=== PATIENT | male | born 1970 | race Caucasian/White ===

== ENCOUNTER 2016-08-10 19:36 | Emergency (ER) | payer OTHER ==
[~2016-08-10] VITALS: Ht 177.8 cm; Wt 98.3 kg
[~2016-08-10 19:36] MED LIST: ASPCH81 PO; LISI-729 PO
[2016-08-10 19:44] VITALS: BP 137/87; PULSE 105; TEMP 36.7; O2SAT 96; Ht 177.8 cm; Wt 98.3 kg
[2016-08-10] MEDS ORDERED: XYLOCAINE 1%/SOD BICARB 20 ML VIAL INFIL ONE (20:15)
[2016-08-10] MEDS ORDERED: DIPHTHERIA/TETANUS/PERTUSSIS 0.5 ML SYR/VIAL IM. ONE (20:15)
[2016-08-10] MEDS ORDERED: CEPH500C2 PO (20:24)
[2016-08-10] MEDS ORDERED: TRAMADOL HCL 50 MG HOME PACK PO ONE (20:30)
[2016-08-10] MEDS ORDERED: CEPHALEXIN 500MG HOME PACK 1 EA BTL PO ONE (20:30)
[2016-08-10] MEDS ORDERED: ATEN-173 PO (20:34)
--- NOTE | 2016-08-11 00:56 | EMERGENCY ROOM VISIT NOTE ---
ED Visit Note First contact with patient: 19:51 Chief Complaint: I cut my left hand. History of Present Illness: Mr. Connelly is a 45-year-old white male who ambulates into the ED complaining of a puncture wound to the left hand. Patient reports approximately 1.5 hours ago he was attempting to cut a rope with [place]. He reports while doing this he sustained the knife wound into the posterior aspect of the webspace between the thumb and index finger. He was seen at a local urgent care center and referred to the ED for a possible tendon injury. Currently patient reports he is having a burning sensation in the area of his laceration. He rates his discomfort 3/10. The pain was nonradiating. The pain worsens with palpation. He has not identified any alleviating factors related to the pain. He has not taken any medications for pain prior to arrival at the hospital. Associated with his pain he reports he is having a discomfort in the area of the flexor tendon of the ring finger over the mid metacarpal. He only describes this as a discomfort. He also rates this discomfort 3/10. He has not identified any aggravating or alleviating factors related to the pain. She denies any associated symptoms with either areas of discomfort including any numbness/tingling on the area of the wounds and throughout the fingers, weaknesses in all movements of the thumb and the ring finger. Additionally patient is right-hand dominant. Review of Systems: As noted above in history of present illness. Past Medical History: Hypertension. Current Medications: Lisinopril, atenolol. Allergies to Medications: Patient denies. Social History: Patient is currently employed; he feels safe in his home environment; he admits to tobacco and alcohol use. Tetanus Immunization Status: Patient reports greater than 10 years. Physical Examination: Vital Signs: Date Time Temp Pulse Resp B/P (MAP) Pulse Ox O2 Delivery O2 Flow Rate FiO2 08/10/16 19:44 36.7 105 20 137/87 96 Room Air GENERAL: 45-year-old male in mild to moderate distress due to pain, nontoxic- appearing, afebrile and hemodynamically stable. NEUROLOGICAL: Awake, alert and oriented to person, place and time. Answering questions appropriately and following commands. Good hand eye coordination. No focal motor or sensory deficits. SKIN: Warm, dry and pink. Right Hand: 1.8 cm full-thickness laceration/ puncture wound over the upper posterior hyper thenar eminence area. Minimal active bleeding. RIGHT HAND: Soft tissue injury as noted above under SKIN. No gross bony deformity. Mild tenderness over his puncture wound/laceration. No other hand tenderness noted. Full range of motion all movements of the thumb and all MCP, PIP and DIP joints against resistance. Throughout the hand the skin was warm and pink and capillary refill is brisk. He was able to distinguish light sensations through all dermatomes. . ED Course: Patient is assessed as noted above. Patient was given an Adacel booster IM. Wound Repair: Complexity: Basic: Verbal consent was obtained after the risks and benefits were explained. The skin was prepped with betadine and a sterile field set. Wound edges of the wound was anesthetized with 2.2 ml buffered 1% lidocaine. The wound was explored for foreign bodies and none found. Copious irrigation was performed using sterile saline. With direct pressure the bleeding subsided. Debridement was not performed. The wound edges were approximated using 5-0 Ethilon with 3 simple interrupted sutures. Hemostasis and excellent approximation was achieved. Antibacterial ointment and a sterile dressing applied. No complications and the patient tolerated the procedure well. Patient was educated about tonight's findings and instructed on his treatment plan; he verbalizes understanding and agreement with this plan. Clinical Impression: Laceration of the left thumb. Disposition: Patient discharged home in stable condition; prior to departure he was reassessed and subjectively he was pain and symptom-free. Plan: Comfort measures, wound care, and signs of infection were discussed with the patient. Patient was prescribed Keflex 500 mg 3 times a day for 7 days for antibiotic prophylaxis. Patient was encouraged to follow-up with PCP or return to the ED for signs of infection and/or suture removal in 10-12 days.
== END 2016-08-10 20:34 | disposition home or self-care (01) ==
LOC: C.EDB 19:37 → C.EDD 20:34
DX: S61.012A Laceration without foreign body of left thumb without damage to nail, initial encounter (principal); W26.0XXA Contact with knife, initial encounter; Y92.89 Other specified places as the place of occurrence of the external cause; I10 Essential (primary) hypertension; Z79.899 Other long term (current) drug therapy; F17.200 Nicotine dependence, unspecified, uncomplicated; Z23 Encounter for immunization

== ENCOUNTER 2022-12-31 18:52 | Inpatient (IN) ==
[2022-12-31] MEDS ORDERED: SODIUM CHLORIDE 0.9% 500 ML IV SCH (19:15)
[2022-12-31 19:25] LABS: Basophils # (auto) 0.06 K/uL (0.00-0.20); Eosinophils # (auto) 0.02 K/uL (0.00-0.50); Eosinophils % (auto) 0.3 %; Hematocrit (blood only) 47.3 % (42.0-52.0); Hemoglobin 16.4 g/dl (14.0-18.0); Immature Granulocytes # (auto) 0.01 K/uL (0.01-0.20); Immature Granulocytes % (auto) 0.2 %; Lymphocytes # (auto) 2.46 K/uL (1.20-3.40); Lymphocytes % (auto) 42.9 %; Mean Corpuscular Hemoglobin 33.3 pg (25.0-34.0); Mean Corpuscular Hgb Conc 34.7 g/dL (32.0-36.0); Mean Corpuscular Volume 96.1 fL (80.0-100.0); Mean Platelet Volume 9.4 fL (9.4-12.4); Monocytes # (auto) 0.45 K/uL (0.11-0.59); Monocytes % (auto) 7.8 %; Neutrophils # (auto) 2.74 K/uL (1.40-6.50); Neutrophils % (auto) 47.8 %; Platelet Count 127 K/uL (130-400); RDW Coefficient of Variation 12.5 % (11.5-14.5); RDW Standard Deviation 44.6 fL (36.4-46.3); Red Blood Count 4.92 M/uL (4.70-6.10); White Blood Count 5.74 K/ul (4.8-10.8)
[2022-12-31 19:38] LABS: Albumin Globulin Ratio 1.6 (0.9-2); Albumin Level 4.7 gm/dl (3.4-5.0); BUN Creatinine Ratio 10.8 (10-20); Bilirubin,Total 1.1 mg/dl (0.2-1.0); Calcium 9.1 mg/dl (8.6-10.3); Creatinine Clr Calc Pharmacy 97.9 ml/min; Est GFR (African American) 97.5 ml/min; Est GFR (Non-African American) 84.1 ml/min; Globulin 2.9 gm/dl (2.5-4.0); Potassium 3.5 mmol/L (3.5-5.1); Total Protein 7.6 gm/dl (6.0-8.3)
[2022-12-31 19:45] LABS: Troponin I High Sensitivity 10.1 pg/ml (0-20)
[2022-12-31 19:48] LABS: Partial Thromboplastin Ratio 0.9; Partial Thromboplastin Time 25.6 Seconds (21.0-31.0)
[2022-12-31 19:52] LABS: Thyroid Stimulating Hormone 0.581 uIu/ml (0.300-4.500)
[2022-12-31] MEDS ORDERED: SODIUM CHLORIDE 0.9% 500 ML IV ONE (20:00)
[2022-12-31] MEDS ORDERED: THIAMINE HCL 200 MG in SODIUM CHLORIDE 0.9% 50 ML IV STA (20:00)
--- NOTE | 2022-12-31 20:07 | Emergency Department Note ---
Impression & Plan Alcohol intoxication, Acute alteration in mental status ED Provider Note NAME: CORDELL RIOS AGE: 52 SEX: M : 1970 ARRIVES VIA: Ambulance INFORMANT: Patient, EMS personnel, the patient's significant other ED PROVIDER(S): Esteban Sutton DO CHIEF COMPLAINT: Altered mental status HPI: The patient is a 52-year-old male who presented to the emergency department for an evaluation of altered mental status. The patient arrived via ambulance. Additional history was obtained from the prehospital personnel as well as the patient's significant other. She states that he had been drinking alcohol throughout the day. She states that she took some time this afternoon to run some errands. When she came home she was unable to wake up her significant other. The patient was very listless and could not speak. He appeared to be aphasic. The patient arrived via ambulance. I did discuss the patient's presentation with the prehospital personnel. They were concerned that this could be strokelike symptoms but they were very concerned because they thought the patient may have drank significant amount of alcohol. The patient himself denies having any chest pain or difficulty breathing. He denies having any headache. ROS: See above HPI for pertinent positives & negatives. A total of 10 systems reviewed and were otherwise negative. PAST MEDICAL HISTORY: See Below PAST SURGICAL HISTORY: See Below FAMILY HISTORY: See Below SOCIAL HISTORY: See Below HOME MEDICATIONS: See Below ALLERGIES: See Below VITALS: See Below PHYSICAL EXAMINATION: GENERAL: Patient is awake alert in no acute distress patient is resting comfortably and showing no signs of anxiety EYES: The conjunctivae are clear. The pupils are round and reactive. EARS, NOSE, MOUTH AND THROAT: The nose is without any evidence of any deformity. NECK: The neck is nontender and supple. RESPIRATORY: Normal respiratory effort is noted there is no evidence of wheezing rhonchi or rales CARDIOVASCULAR: Regular rate and rhythm noted there no murmurs rubs or gallops normal S1 normal S2. GASTROINTESTINAL: The abdomen is soft. Abdomen is nontender. MUSCULOSKELETAL/EXTREMITIES: There is no evidence of gross deformity full range of motion is noted in the hips and shoulders. SKIN: There is no obvious evidence of any rash. There are no petechiae, pallor or cyanosis noted. NEUROLOGIC: The patient is awake and alert. His speech is somewhat slurred. Strength is symmetric. MEDICAL DECISION MAKING: The patient is a 52-year-old male who presented to the emergency department with strokelike symptoms. The patient was felt to been experiencing symptoms throughout the day but there was a point where he was not seen by his significant other and when she returned she found him unresponsive and this is why she called 911. The patient did admit to significant alcohol use prior to coming to the emergency department. I discussed patient's laboratory and radiographic studies with him and his significant other. The patient was found to have a very elevated alcohol level greater than 6 times the legal limit. For this reason I felt the patient required further inpatient management. It does not appear the patient is a candidate for thrombolytics given his elevated alcohol level. Plain CT showed no acute process. He may require further reevaluation to ensure that his mental status improves when his alcohol level also is improving. Triage Nursing notes reviewed. Prior medical records reviewed Vital Signs: reviewed and remarkable for elevated blood pressure. Differential diagnosis: Infection, hypoglycemia, electrolyte abnormalities, overdose, toxicologic, cardiac sources, intracerebral event, neurologic, trauma, as well as other pathologies. ER treatment provided: See below Diagnostics interpreted by me: ECG: EKG was obtained in the emergency department. My interpretation is normal sinus rhythm at 74 bpm. There is no ectopy. There is no acute ST segment abnormalities noted. This was compared to a tracing on November 26, 2022. No changes were noted. Cardiac Monitoring: An order was placed for continuous cardiac monitoring. The monitor shows a rate of 82 bpm with sinus rhythm. Laboratory studies: As stated above and show below. Imaging studies: See below. Radiographic imaging was reviewed by myself Consultation(s): I discussed this case with Dr. Black who is on-call for the [facility] hospitalist group Past Med/Surg History Medical History Hypomagnesemia Alcohol abuse Transient vision disturbance of right eye Hypertension Social History Smoking Status: Current some day smoker Preferred Language: Polish marital status: Current Living Situation: Spouse and Family current occupational status: employed Feels Safe at Home: Yes Allergies Allergies Allergy/AdvReac Type Severity Reaction Status Date / Time No Known Allergies Allergy Mild Verified 08/10/19 13:03 Home Meds Home Medications Medication Instructions Recorded Confirmed amlodipine 10 mg tablet 10 mg PO QAM 12/31/22 12/31/22 atenolol 25 mg tablet 25 mg PO QAM 12/31/22 12/31/22 escitalopram oxalate 10 mg tablet 10 mg PO QAM 12/31/22 12/31/22 hydroxyzine HCl 25 mg tablet 25 mg PO Q6 PRN Anxiety 12/31/22 12/31/22 Results & Data (ED) Vital Signs Vital Signs - 24 hr 12/31/22 19:00 12/31/22 19:01 12/31/22 19:07 Temperature 36.6 C Temperature Source Temporal Artery Scan Pulse Rate 83 77 81 Pulse Rate [Finger] Pulse Rate from SpO2 Sensor 78 Pulse Rhythm Regular Pulse Rhythm [Finger] Pulse Strength Normal Pulse Strength [Finger] Respiratory Rate 18 19 Respiratory Effort / Characteristics Non-Labored Spontaneous Respiratory Depth Normal Respiratory Pattern Blood Pressure 93/58 L Blood Pressure [Right Arm] Blood Pressure Mean 69 Blood Pressure Mean [Right Arm] Blood Pressure Position Sitting Blood Pressure Position [Right Arm] Pulse Oximetry 88 L 83 L Oxygen Delivery Method Room Air Oxygen Flow Rate Sepsis Recent Fever Within 48 Hours No Sepsis New/Unexplained Change in Mental Status N/A Sepsis Action Taken by Nursing No Action Required 12/31/22 19:07 12/31/22 19:07 12/31/22 19:10 Temperature 36.6 C Temperature Source Oral Pulse Rate 78 75 Pulse Rate [Finger] 76 Pulse Rate from SpO2 Sensor 76 Pulse Rhythm Regular Pulse Rhythm [Finger] Regular Pulse Strength Pulse Strength [Finger] Normal Respiratory Rate 20 20 21 Respiratory Effort / Characteristics Non-Labored Spontaneous Respiratory Depth Normal Respiratory Pattern Blood Pressure Blood Pressure [Right Arm] 93/58 L Blood Pressure Mean Blood Pressure Mean [Right Arm] 69 Blood Pressure Position Blood Pressure Position [Right Arm] Lying Pulse Oximetry 97 97 98 Oxygen Delivery Method Non-rebreather Non-rebreather Oxygen Flow Rate 6 6 Sepsis Recent Fever Within 48 Hours Sepsis New/Unexplained Change in Mental Status Sepsis Action Taken by Nursing 12/31/22 19:20 12/31/22 19:48 12/31/22 19:50 Temperature Temperature Source Pulse Rate 76 84 Pulse Rate [Finger] Pulse Rate from SpO2 Sensor 75 88 82 Pulse Rhythm Pulse Rhythm [Finger] Pulse Strength Pulse Strength [Finger] Respiratory Rate 21 20 Respiratory Effort / Characteristics Respiratory Depth Respiratory Pattern Blood Pressure Blood Pressure [Right Arm] Blood Pressure Mean Blood Pressure Mean [Right Arm] Blood Pressure Position Blood Pressure Position [Right Arm] Pulse Oximetry 97 95 97 Oxygen Delivery Method Oxygen Flow Rate Sepsis Recent Fever Within 48 Hours Sepsis New/Unexplained Change in Mental Status Sepsis Action Taken by Nursing 12/31/22 19:57 12/31/22 20:00 12/31/22 20:10 Temperature Temperature Source Pulse Rate 82 81 Pulse Rate [Finger] Pulse Rate from SpO2 Sensor 83 79 Pulse Rhythm Pulse Rhythm [Finger] Pulse Strength Pulse Strength [Finger] Respiratory Rate 19 20 Respiratory Effort / Characteristics Respiratory Depth Respiratory Pattern Blood Pressure Blood Pressure [Right Arm] Blood Pressure Mean Blood Pressure Mean [Right Arm] Blood Pressure Position Blood Pressure Position [Right Arm] Pulse Oximetry 95 97 97 Oxygen Delivery Method Oxymask Oxygen Flow Rate 3 Sepsis Recent Fever Within 48 Hours Sepsis New/Unexplained Change in Mental Status Sepsis Action Taken by Nursing 12/31/22 20:20 12/31/22 20:30 12/31/22 20:40 Temperature Temperature Source Pulse Rate 78 73 Pulse Rate [Finger] Pulse Rate from SpO2 Sensor 78 74 80 Pulse Rhythm Pulse Rhythm [Finger] Pulse Strength Pulse Strength [Finger] Respiratory Rate 19 19 20 Respiratory Effort / Characteristics Respiratory Depth Respiratory Pattern Blood Pressure Blood Pressure [Right Arm] Blood Pressure Mean Blood Pressure Mean [Right Arm] Blood Pressure Position Blood Pressure Position [Right Arm] Pulse Oximetry 95 96 96 Oxygen Delivery Method Oxygen Flow Rate Sepsis Recent Fever Within 48 Hours Sepsis New/Unexplained Change in Mental Status Sepsis Action Taken by Nursing 12/31/22 20:50 12/31/22 21:00 12/31/22 21:00 Temperature Temperature Source Pulse Rate 79 74 Pulse Rate [Finger] 82 Pulse Rate from SpO2 Sensor 80 74 Pulse Rhythm Pulse Rhythm [Finger] Regular Pulse Strength Pulse Strength [Finger] Normal Respiratory Rate 21 16 17 Respiratory Effort / Characteristics Non-Labored Spontaneous Respiratory Depth Normal Respiratory Pattern Regular Blood Pressure Blood Pressure [Right Arm] 135/101 H Blood Pressure Mean Blood Pressure Mean [Right Arm] 112 Blood Pressure Position Blood Pressure Position [Right Arm] Lying Pulse Oximetry 95 96 99 Oxygen Delivery Method Nasal Cannula Oxygen Flow Rate 2 Sepsis Recent Fever Within 48 Hours Sepsis New/Unexplained Change in Mental Status Sepsis Action Taken by Nursing 12/31/22 21:05 12/31/22 21:05 12/31/22 21:10 Temperature Temperature Source Pulse Rate 79 80 Pulse Rate [Finger] Pulse Rate from SpO2 Sensor 80 81 Pulse Rhythm Pulse Rhythm [Finger] Pulse Strength Pulse Strength [Finger] Respiratory Rate 16 23 Respiratory Effort / Characteristics Respiratory Depth Respiratory Pattern Blood Pressure 135/101 H Blood Pressure [Right Arm] Blood Pressure Mean 109 Blood Pressure Mean [Right Arm] Blood Pressure Position Blood Pressure Position [Right Arm] Pulse Oximetry 98 95 Oxygen Delivery Method Oxygen Flow Rate Sepsis Recent Fever Within 48 Hours Sepsis New/Unexplained Change in Mental Status Sepsis Action Taken by Nursing 12/31/22 21:20 12/31/22 21:30 12/31/22 21:40 Temperature Temperature Source Pulse Rate 74 81 71 Pulse Rate [Finger] Pulse Rate from SpO2 Sensor 75 81 72 Pulse Rhythm Pulse Rhythm [Finger] Pulse Strength Pulse Strength [Finger] Respiratory Rate 16 17 22 Respiratory Effort / Characteristics Respiratory Depth Respiratory Pattern Blood Pressure Blood Pressure [Right Arm] Blood Pressure Mean Blood Pressure Mean [Right Arm] Blood Pressure Position Blood Pressure Position [Right Arm] Pulse Oximetry 96 93 96 Oxygen Delivery Method Oxygen Flow Rate Sepsis Recent Fever Within 48 Hours Sepsis New/Unexplained Change in Mental Status Sepsis Action Taken by Nursing 12/31/22 21:50 12/31/22 22:00 12/31/22 22:00 Temperature Temperature Source Pulse Rate 78 82 Pulse Rate [Finger] Pulse Rate from SpO2 Sensor 78 82 Pulse Rhythm Pulse Rhythm [Finger] Pulse Strength Pulse Strength [Finger] Respiratory Rate 18 24 Respiratory Effort / Characteristics Respiratory Depth Respiratory Pattern Blood Pressure 124/90 Blood Pressure [Right Arm] Blood Pressure Mean 103 Blood Pressure Mean [Right Arm] Blood Pressure Position Blood Pressure Position [Right Arm] Pulse Oximetry 97 96 Oxygen Delivery Method Oxygen Flow Rate Sepsis Recent Fever Within 48 Hours Sepsis New/Unexplained Change in Mental Status Sepsis Action Taken by Snf Medications Current Medication List: was personally reviewed by me Laboratory Data Attestation: I reviewed the patient's lab results. 12/31/22 19:09 12/31/22 19:09 Lab Results 12/31/22 Range/Units 19:09 WBC 5.74 (4.8-10.8) K/ul RBC 4.92 (4.70-6.10) M/uL Hgb 16.4 (14.0-18.0) g/dl Hct 47.3 (42.0-52.0) % MCV 96.1 (80.0-100.0) fL MCH 33.3 (25.0-34.0) pg MCHC 34.7 (32.0-36.0) g/dL RDW Std Deviation 44.6 (36.4-46.3) fL RDW Coeff of Abel 12.5 (11.5-14.5) % Plt Count 127 L (130-400) K/uL MPV 9.4 (9.4-12.4) fL Immature Gran % (Auto) 0.2 % Neut % (Auto) 47.8 % Lymph % (Auto) 42.9 % [place] % (Auto) 7.8 % Eos % (Auto) 0.3 % Baso % (Auto) 1.0 % Neut # (Auto) 2.74 (1.40-6.50) K/uL Lymph # (Auto) 2.46 (1.20-3.40) K/uL [place] # (Auto) 0.45 (0.11-0.59) K/uL Eos # (Auto) 0.02 (0.00-0.50) K/uL Baso # (Auto) 0.06 (0.00-0.20) K/uL Immature Gran # (Auto) 0.01 (0.01-0.20) K/uL PT 11.0 (9.0-12.0) Seconds INR 1.0 (0.9-1.1) APTT 25.6 (21.0-31.0) Seconds PTT Ratio 0.9 Sodium 141 (136-145) mmol/L Potassium 3.5 (3.5-5.1) mmol/L Chloride 98 (98-107) mmol/L Carbon Dioxide 28 (21-32) mmol/L Anion Gap 15 H (3-11) BUN 11 (6-23) mg/dl Creatinine 1.02 (0.6-1.4) mg/dl Est Cr Clr Drug Dosing 97.9 ml/min Est GFR ( Amer) 97.5 ml/min Est GFR (Non-Af Amer) 84.1 ml/min BUN/Creatinine Ratio 10.8 (10-20) Glucose 103 H (70-99(Fasting)) mg/dl Calcium 9.1 (8.6-10.3) mg/dl Magnesium 2.0 (1.7-2.4) mg/dl Total Bilirubin 1.1 H (0.2-1.0) mg/dl AST 155 H (13-39) U/L ALT 132 H (7-52) U/L Alkaline Phosphatase 79 (34-104) U/L Troponin I High Sens 10.1 (0-20) pg/ml Total Protein 7.6 (6.0-8.3) gm/dl Albumin 4.7 (3.4-5.0) gm/dl Globulin 2.9 (2.5-4.0) gm/dl Albumin/Globulin Ratio 1.6 (0.9-2) TSH 0.581 (0.300-4.500) uIu/ml Ethyl Alcohol mg/dL 494.2 H (<10.0) mg/dl Administered Medications Discontinued Medications Sodium Chloride (Nss) 500 mls @ 999 mls/hr IV .Q31M ALVARO Stop: 12/31/22 19:45 Last Infusion: 12/31/22 20:42 Dose: Infused Documented By: Admin: 12/31/22 19:53 Dose: 999 mls/hr Documented By: BRITTANI Sodium Chloride (Nss) 500 mls @ 999 mls/hr IV .Q31M ONE Stop: 12/31/22 20:30 Last Infusion: 12/31/22 21:15 Dose: Infused Documented By: Admin: 12/31/22 20:43 Dose: 999 mls/hr Documented By: BRITTANI Thiamine HCl 200 mg/ Sodium (Chloride) 52 mls @ 210 mls/hr IV NOW STA Stop: 12/31/22 20:14 Last Infusion: 12/31/22 21:00 Dose: Infused Documented By: Admin: 12/31/22 20:43 Dose: 210 mls/hr Documented By: BRITTANI Imaging Data Attestation: I personally reviewed and interpreted this imaging study as follows: My Impression: CT the brain was obtained in the emergency department. My interpretation is no intracranial hemorrhage or mass effect, final report below. 1 view chest x-ray was obtained in the emergency department. My interpretation is cardiomegaly with elevation of the left hemidiaphragm, hypoventilation was noted, this was compared to a chest x-ray from November 26, 2022. The cardiac silhouette appears to be enlarged however no other changes were noted. This could be secondary to technique. Final report pending Radiologist's Impression: Head CT 12/31/22 19:05 Exam(s): CT HEAD Without Contrast EXAM: CT Head Without Intravenous Contrast CLINICAL HISTORY: Reason for exam: ams. TECHNIQUE: Axial computed tomography images of the head/brain without intravenous contrast. CTDI is 37 mGy and DLP is 624.41 mGy-cm. Automated exposure control was utilized for the study. A dose lowering technique was utilized adhering to the principles of ALARA. COMPARISON: No relevant prior studies available. FINDINGS: No acute intracranial hemorrhage. No midline shift or mass effect. The [place] germ[place]-white matter differentiation is maintained throughout. The ventricles and sulci are commensurate with age. The visualized orbits appear grossly unremarkable. The calvarium is intact. The visualized paranasal sinuses and mastoid air cells are grossly clear. IMPRESSION: No acute intracranial hemorrhage, midline shift, or mass effect. Electronically signed by: Stanley Gomes MD 12/31/22 20:09 PM Discharge Plan Visit Data Chief Complaint: Unresponsive Stated Complaint: UNRESPONSIVE ED Provider: Esteban Sutton Discharge Problem: Alcohol intoxication, Acute alteration in mental status Patient Disposition: Being Evaluated by Hospitalist Forms Stand Alone Forms: [facility] Prescriptions Prescriptions: No Action atenolol 25 mg tablet 25 mg PO QAM amlodipine 10 mg tablet 10 mg PO QAM hydroxyzine HCl 25 mg tablet 25 mg PO Q6 PRN (Reason: Anxiety) escitalopram oxalate 10 mg tablet 10 mg PO QAM Referrals Referrals: Vida Hernandez DO [Primary Care Provider] - Discharge Problem: Alcohol intoxication Qualifiers: Complication of substance-induced condition: with unspecified complication Q ualified Code(s): F10.929 - Alcohol use, unspecified with intoxication, unspecified
--- NOTE | 2022-12-31 20:11 | CT Scan Report ---
Exam(s): CT HEAD Without Contrast EXAM: CT Head Without Intravenous Contrast CLINICAL HISTORY: Reason for exam: ams. TECHNIQUE: Axial computed tomography images of the head/brain without intravenous contrast. CTDI is 37 mGy and DLP is 624.41 mGy-cm. Automated exposure control was utilized for the study. A dose lowering technique was utilized adhering to the principles of ALARA. COMPARISON: No relevant prior studies available. FINDINGS: No acute intracranial hemorrhage. No midline shift or mass effect. The territorial germain-white matter differentiation is maintained throughout. The ventricles and sulci are commensurate with age. The visualized orbits appear grossly unremarkable. The calvarium is intact. The visualized paranasal sinuses and mastoid air cells are grossly clear. IMPRESSION: No acute intracranial hemorrhage, midline shift, or mass effect. Electronically signed by: Stanley Gomes MD 12/31/22 20:09 PM
--- NOTE | 2022-12-31 23:01 | CT Scan Report ---
Exam(s): CT CHEST Without Contrast EXAM: CT Chest Without Intravenous Contrast CLINICAL HISTORY: Reason for exam: cardiomegally. TECHNIQUE: Axial computed tomography images of the chest without intravenous contrast. CTDI is 22.3 mGy and DLP is 733.85 mGy-cm. Automated exposure control was utilized for the study. A dose lowering technique was utilized adhering to the principles of ALARA. COMPARISON: No relevant prior studies available. FINDINGS: Lungs: Atelectasis at the lung bases. Pleural space: Unremarkable. No pneumothorax. No significant effusion. Heart: Unremarkable. No cardiomegaly. No significant pericardial effusion. No significant coronary artery calcifications. Bones/joints: Chronic compression deformity involving the superior endplate of T8. No dislocation. Soft tissues: Unremarkable. Vasculature: Unremarkable. No thoracic aortic aneurysm. Lymph nodes: Unremarkable. No enlarged lymph nodes. Liver: Severe hepatic steatosis. IMPRESSION: No acute findings in the chest. Electronically signed by: Stanley Gomes MD 12/31/22 23:00 PM
--- NOTE | 2023-01-01 01:10 | History & Physical Report ---
Date of Service January 01, 2023 Assessment & Plan (1) Alcohol intoxication: Plan: 52-year-old male with past medical significant for hypertension, PVCs, GERD, presents with altered mental status and alcohol intoxication. Alcohol intoxication Altered mental status mostly from alcohol intoxication Mental status improving CT head okay Has some stuttering speech but states when he drinks his speech stutters. Close monitoring telemetry floor IV fluids Hypertension On amlodipine and atenolol We will monitor Alcoholism Counseling Alcohol withdrawal protocol thiamine and folic acid. DVT prophylaxis SCDs for now Disposition Telemetry floor Full code History of Present Illness Chief Complaint: Altered mental status. Alcohol intoxication Primary Care Provider: Vida Hernandez DO 52-year-old male with past medical history significant for hypertension, PVCs, GERD, presents with altered mental status and alcohol intoxication. As per his he was drinking alcohol throughout the day today and has been drinking heavily since last 2 weeks. When the came home in the afternoon she could not able to wake her . The patient was not speaking. He appeared aphasic. EMS was called. This was some some concern of strokelike symptoms. Blood alcohol was 490. ER thought he was not a candidate for tPA because of his acute alcohol intoxication. Initial CT head is okay. Currently patient is more alert and awake. Can tell his name. Can tell his date of . Knows that he is in the hospital. Some confusion of the dates. His speech is somewhat pressured. states when he drinks alcohol he is speech is generally stuttering and is not unusual for him. Patient is able to obey simple commands for examination. He denies any headache. Denies chest pain. Denies abdominal pain. Denies nausea. Hemodynamically stable. Past medical history. As mentioned above Past surgical history. Left heart catheterization. EGD with biopsy. Naviculars fracture s/p surgery. Liver biopsy. Social history. . Snuff tobacco. Alcohol heavy drinking. No drug use. Family history. Father had MT at age 48. Paternal grandfather had MT in 50s. Maternal grandfather had MT in 40s. Allergies Allergy/AdvReac Type Severity Reaction Status Date / Time No Known Allergies Allergy Mild Verified 08/10/19 13:03 Home Medications Medication Instructions Recorded Confirmed Type amlodipine 10 mg tablet 10 mg PO QAM 12/31/22 12/31/22 History atenolol 25 mg tablet 25 mg PO QAM 12/31/22 12/31/22 History escitalopram oxalate 10 mg tablet 10 mg PO QAM 12/31/22 12/31/22 History hydroxyzine HCl 25 mg tablet 25 mg PO Q6 PRN Anxiety 12/31/22 12/31/22 History Past Med/Surg History Medical History Hypomagnesemia Alcohol abuse Transient vision disturbance of right eye Hypertension Social History Smoking Status: Former smoker Hx Alcohol Use: Yes Alcohol type: hard liquor Hx Substance Use: No Preferred Language: Lithuanian Communication Ability: Effective Nematology Teacher Required: No Beliefs That Will Affect Care: None marital status: Current Living Situation: Spouse current occupational status: employed Other Information That Helps Us Care for You: No Feels Safe at Home: Yes Safety Concerns: Feels Safe At This Time Assistive Devices: Glasses Review of Systems Review of Systems: Unobtainable due to reduced consciousness Physical Exam Physical Exam: Laboratory Results General- Drowsy but arousable. Not in distress Head- atraumatic Eyes- PERRL. ENT- oropharynx clear Neck- supple, no JVD Lungs- clear to auscultation no wheezing or crackles. Heart- regular rhythm; no murmur, no gallop. Abdomen- normal bowel sounds, soft, nontender, no distension. Extremities- no pretibial edema, no erythema seen. Neuro- alert, oriented x 2; PERRL, no facial palsy;tounge midline.some stuttering speech; motor 5/5 bilaterally;no pronator drift, co ordniation of movements normal. sensations intact. Skin- warm & dry Results & Data Results & Data Vital Signs (Past 12 Hours) Vital Signs Temp Pulse Pulse Resp BP BP Pulse Ox 12/31/22 23:26 77 17 153/107 H 96 12/31/22 23:06 79 12/31/22 22:00 124/90 12/31/22 22:00 82 24 96 12/31/22 21:50 78 18 97 12/31/22 21:40 71 22 96 12/31/22 21:30 81 17 93 12/31/22 21:20 74 16 96 12/31/22 21:10 80 23 95 12/31/22 21:05 135/101 H 12/31/22 21:05 79 16 98 12/31/22 21:00 74 17 99 12/31/22 21:00 82 16 135/101 H 96 12/31/22 20:50 79 21 95 12/31/22 20:40 20 96 12/31/22 20:30 73 19 96 12/31/22 20:20 78 19 95 12/31/22 20:10 81 20 97 12/31/22 20:00 82 19 97 12/31/22 19:57 95 12/31/22 19:50 84 20 97 12/31/22 19:48 95 12/31/22 19:20 76 21 97 12/31/22 19:10 75 21 98 12/31/22 19:07 78 20 97 12/31/22 19:07 36.6 C 76 20 93/58 L 97 12/31/22 19:07 36.6 C 81 19 93/58 L 83 L 12/31/22 19:01 77 18 88 L 12/31/22 19:00 83 O2 Del Method O2 Flow Rate 12/31/22 23:26 Nasal Cannula 2 12/31/22 23:06 12/31/22 22:00 12/31/22 22:00 12/31/22 21:50 12/31/22 21:40 12/31/22 21:30 12/31/22 21:20 12/31/22 21:10 12/31/22 21:05 12/31/22 21:05 12/31/22 21:00 12/31/22 21:00 Nasal Cannula 2 12/31/22 20:50 12/31/22 20:40 12/31/22 20:30 12/31/22 20:20 12/31/22 20:10 12/31/22 20:00 12/31/22 19:57 Oxymask 3 12/31/22 19:50 12/31/22 19:48 12/31/22 19:20 12/31/22 19:10 12/31/22 19:07 Non-rebreather 6 12/31/22 19:07 Non-rebreather 6 12/31/22 19:07 Room Air 12/31/22 19:01 12/31/22 19:00 Diagnostic Findings Laboratory Results WBC 5.74 K/ul (4.8-10.8) 12/31/22 19:09 RBC 4.92 M/uL (4.70-6.10) 12/31/22 19:09 Hgb 16.4 g/dl (14.0-18.0) 12/31/22 19:09 Hct 47.3 % (42.0-52.0) 12/31/22 19:09 MCV 96.1 fL (80.0-100.0) 12/31/22 19: MCH 33.3 pg (25.0-34.0) 12/31/22 19: MCHC 34.7 g/dL (32.0-36.0) 12/31/22 19: RDW Std Deviation 44.6 fL (36.4-46.3) 12/31/22 19: RDW Coeff of Abel 12.5 % (11.5-14.5) 12/31/22 19: Plt Count 127 K/uL (130-400) L 12/31/22 19:09 MPV 9.4 fL (9.4-12.4) 12/31/22 19:09 Immature Gran % (Auto) 0.2 % 12/31/22 19:09 Neut % (Auto) 47.8 % 12/31/22 19:09 Lymph % (Auto) 42.9 % 12/31/22 19:09 Wilson % (Auto) 7.8 % 12/31/22 19:09 Eos % (Auto) 0.3 % 12/31/22 19:09 Baso % (Auto) 1.0 % 12/31/22 19:09 Neut # (Auto) 2.74 K/uL (1.40-6.50) 12/31/22 19:09 Lymph # (Auto) 2.46 K/uL (1.20-3.40) 12/31/22 19:09 Wilson # (Auto) 0.45 K/uL (0.11-0.59) 12/31/22 19:09 Eos # (Auto) 0.02 K/uL (0.00-0.50) 12/31/22 19:09 Baso # (Auto) 0.06 K/uL (0.00-0.20) 12/31/22 19:09 Immature Gran # (Auto) 0.01 K/uL (0.01-0.20) 12/31/22 19:09 PT 11.0 Seconds (9.0-12.0) 12/31/22 19:09 INR 1.0 (0.9-1.1) 12/31/22 19:09 APTT 25.6 Seconds (21.0-31.0) 12/31/22 19:09 PTT Ratio 0.9 12/31/22 19:09 Sodium 141 mmol/L (136-145) 12/31/22 19:09 Potassium 3.5 mmol/L (3.5-5.1) 12/31/22 19:09 Chloride 98 mmol/L (98-107) 12/31/22 19:09 Carbon Dioxide 28 mmol/L (21-32) 12/31/22 19:09 Anion Gap 15 (3-11) H 12/31/22 19:09 BUN 11 mg/dl (6-23) 12/31/22 19:09 Creatinine 1.02 mg/dl (0.6-1.4) 12/31/22 19:09 Est Cr Clr Drug Dosing 97.9 ml/min 12/31/22 19:09 Est GFR ( Amer) 97.5 ml/min 12/31/22 19:09 Est GFR (Non-Af Amer) 84.1 ml/min 12/31/22 19:09 BUN/Creatinine Ratio 10.8 (10-20) 12/31/22 19:09 Glucose 103 mg/dl (70-99(Fasting)) H 12/31/22 19:09 Calcium 9.1 mg/dl (8.6-10.3) 12/31/22 19:09 Magnesium 2.0 mg/dl (1.7-2.4) 12/31/22 19:09 Total Bilirubin 1.1 mg/dl (0.2-1.0) H 12/31/22 19:09 AST 155 U/L (13-39) H 12/31/22 19:09 ALT 132 U/L (7-52) H 12/31/22 19:09 Alkaline Phosphatase 79 U/L (34-104) 12/31/22 19:09 Troponin I High Sens 10.1 pg/ml (0-20) 12/31/22 19:09 Total Protein 7.6 gm/dl (6.0-8.3) 12/31/22 19:09 Albumin 4.7 gm/dl (3.4-5.0) 12/31/22 19:09 Globulin 2.9 gm/dl (2.5-4.0) 12/31/22 19:09 Albumin/Globulin Ratio 1.6 (0.9-2) 12/31/22 19:09 TSH 0.581 uIu/ml (0.300-4.500) 12/31/22 19:09 Ethyl Alcohol mg/dL 494.2 mg/dl (<10.0) H 12/31/22 19:[address] 12/31/22 19:05 Exam(s): CT HEAD Without Contrast EXAM: CT Head Without Intravenous Contrast CLINICAL HISTORY: Reason for exam: ams. TECHNIQUE: Axial computed tomography images of the head/brain without intravenous contrast. CTDI is 37 mGy and DLP is 624.41 mGy-cm. Automated exposure control was utilized for the study. A dose lowering technique was utilized adhering to the principles of ALARA. COMPARISON: No relevant prior studies available. FINDINGS: No acute intracranial hemorrhage. No midline shift or mass effect. The territorial germain-white matter differentiation is maintained throughout. The ventricles and sulci are commensurate with age. The visualized orbits appear grossly unremarkable. The calvarium is intact. The visualized paranasal sinuses and mastoid air cells are grossly clear. IMPRESSION: No acute intracranial hemorrhage, midline shift, or mass effect. Electronically signed by: Stanley Gomes MD 12/31/22 20:[address] 12/31/22 21:44 Exam(s): CT CHEST Without Contrast EXAM: CT Chest Without Intravenous Contrast CLINICAL HISTORY: Reason for exam: cardiomegally. TECHNIQUE: Axial computed tomography images of the chest without intravenous contrast. CTDI is 22.3 mGy and DLP is 733.85 mGy-cm. Automated exposure control was utilized for the study. A dose lowering technique was utilized adhering to the principles of ALARA. COMPARISON: No relevant prior studies available. FINDINGS: Lungs: Atelectasis at the lung bases. Pleural space: Unremarkable. No pneumothorax. No significant effusion. Heart: Unremarkable. No cardiomegaly. No significant pericardial effusion. No significant coronary artery calcifications. Bones/joints: Chronic compression deformity involving the superior endplate of T8. No dislocation. Soft tissues: Unremarkable. Vasculature: Unremarkable. No thoracic aortic aneurysm. Lymph nodes: Unremarkable. No enlarged lymph nodes. Liver: Severe hepatic steatosis. IMPRESSION: No acute findings in the chest. Electronically signed by: Stanley Gomes MD 12/31/22 23:00 PM ECG Additional Comments: EKG normal sinus rhythm at a 74. No significant changes found Code Status & VTE Plan VTE Prophylaxis Plan VTE Prophylaxis will be ordered: Yes (1) Alcohol intoxication Complication of substance-induced condition: with unspecified complication Qualified Code(s): F10.929 - Alcohol use, unspecified with intoxication, unspecified
[2023-01-01] MEDS ORDERED: NITROGLYCERIN SL 0.4 MG/TAB TAB SL PRN (02:34)
[2023-01-01] MEDS ORDERED: Ativan IV Alcohol Withdrawal--Active Protocol IV PRN (02:46)
[2023-01-01] MEDS ORDERED: LORazepam 3 MG in SYRINGE 1.5 ML IV PRN (02:46)
[2023-01-01] MEDS ORDERED: MULTI-VITAMIN INFUSION 10 ML, THIAMINE HCL 100 MG, FOLIC ACID 1 MG in SODIUM CHLORIDE 0... IV ONE (03:00)
[2023-01-01] MEDS: hydrOXYzine HCl 25 MG TAB PO PRN ×3 (03:09→21:53)
[2023-01-01] MEDS: SODIUM CHLORIDE 0.9% 1,000 ML IV SCH ×3 (03:09→18:04)
[2023-01-01] MEDS: ONDANSETRON INJ 2 MG/ML 2 ML VIAL IV PRN ×2 (03:09→15:27)
[2023-01-01 06:28] LABS: Anion Gap 13 (3-11); BUN Creatinine Ratio 13.8 (10-20); Blood Urea Nitrogen 12 mg/dl (6-23); Calcium 7.9 mg/dl (8.6-10.3); Carbon Dioxide 25 mmol/L (21-32); Chloride 104 mmol/L (98-107); Est GFR (Non-African American) 99.2 ml/min; Glucose 75 mg/dl (70-99(Fasting)); Magnesium 1.7 mg/dl (1.7-2.4); Sodium 142 mmol/L (136-145); Troponin I High Sensitivity 7.6 pg/ml (0-20)
[2023-01-01 06:30] LABS: Basophils # (auto) 0.04 K/uL (0.00-0.20); Basophils % (auto) 1.2 %; Eosinophils # (auto) 0.01 K/uL (0.00-0.50); Eosinophils % (auto) 0.3 %; Hematocrit (blood only) 40.8 % (42.0-52.0); Hemoglobin 14.2 g/dl (14.0-18.0); Immature Granulocytes # (auto) 0.01 K/uL (0.01-0.20); Immature Granulocytes % (auto) 0.3 %; Lymphocytes # (auto) 1.23 K/uL (1.20-3.40); Lymphocytes % (auto) 36.1 %; Mean Corpuscular Hemoglobin 33.5 pg (25.0-34.0); Mean Corpuscular Hgb Conc 34.8 g/dL (32.0-36.0); Mean Corpuscular Volume 96.2 fL (80.0-100.0); Mean Platelet Volume 9.8 fL (9.4-12.4); Monocytes # (auto) 0.31 K/uL (0.11-0.59); Monocytes % (auto) 9.1 %; Neutrophils # (auto) 1.81 K/uL (1.40-6.50); Platelet Count 96 K/uL (130-400); Platelet Estimate Decreased (Normal); RDW Coefficient of Variation 12.6 % (11.5-14.5); RDW Standard Deviation 44.9 fL (36.4-46.3); Red Blood Count 4.24 M/uL (4.70-6.10); White Blood Count 3.41 K/ul (4.8-10.8)
[2023-01-01] MEDS ORDERED: GABAPENTIN 600 MG TAB PO ONE (07:04)
[2023-01-01] MEDS ORDERED: GABAPENTIN 1200MG ALCOHOL WITHDRAWAL LOAD PO STA (07:04)
--- NOTE | 2023-01-01 07:36 | XRay Report ---
XR chest 1V portable HISTORY: 52 years-old Male weakness acute weakness COMPARISON: Chest CT of same day TECHNIQUE: AP view of the chest FINDINGS: Lungs are hypoinflated. Cardiomegaly. Bibasilar atelectasis with bronchovascular crowding. No pneumot horax, pleural effusion or overt pulmonary edema. Bones appear grossly intact. IMPRESSION: Cardiomegaly with hypoinflation and bibasilar atelectasis. ACT 112: Negative or not required by law. The above report was generated using voice recognition software. It may contain grammatical, syntax o r spelling errors. Electronically signed by: Ezqeuiel Burgos M.D. 01/01/2023 7:34 AM
[2023-01-01] MEDS: THIAMINE HCL 100 MG in SYRINGE 9 ML IV SCH (08:28)
[2023-01-01] MEDS: FOLIC ACID 1 MG in SYRINGE 9.8 ML IV SCH (08:28)
[2023-01-01] MEDS: amLODIPine BESYLATE 5 MG TAB PO SCH (08:32)
--- NOTE | 2023-01-01 08:32 | Ultrasound Report ---
US liver CLINICAL HISTORY: severe hepatic steatosis TECHNIQUE: Multiple real-time sonographic images of the right upper quadrant were obtained. Comparison: Comparison is made to CT abdomen pelvis 11/26/2022 FINDINGS: The liver is diffusely echogenic in appearance with poor ultrasound penetration, with normal contour, which is consistent with fatty infiltration. No focal mass lesions are seen. No intrahepatic duct al dilatation is seen. No gallstones or sludge are identified within the gallbladder. The gallbladde r wall is not thickened. There is no pericholecystic fluid present. A sonographic Obando's sign was n ot elicited by the project architect. The common duct measures 0.3 cm in diameter at the level of the hep atic artery. The visualized portions of the pancreas appear normal. The right kidney shows normal echogenicity, cortical thickness and renal contour. The right kidney sh ows no evidence of hydronephrosis or mass. No ascites or free fluid is seen in Lamb's pouch. IMPRESSION: Hepatic steatosis. ACT 112: Negative or not required by law. Electronically signed by: Jemal Borrero M.D. 01/01/2023 8:30 AM
[2023-01-01] MEDS: ATENOLOL 25 MG TABLET PO SCH (08:33)
[2023-01-01] MEDS: ESCITALOPRAM OXALATE 10 MG TAB PO SCH (08:33)
--- NOTE | 2023-01-01 09:03 | Electrocardiogram Report ---
Test Reason : Blood Pressure : / mmHG Vent. Rate : 086 BPM Atrial Rate : 086 BPM P-R Int : 122 ms QRS Dur : 088 ms QT Int : 408 ms P-R-T Axes : 076 051 027 degrees QTc Int : 488 ms Normal sinus rhythm Normal ECG When compared with ECG of 31-DEC-2022 19:15, No significant change was found Confirmed by Tip Stockton ([id number]) on 01/01/2023 9:03:49 AM Referred By: REFERRED SELF Confirmed By:Tip Stockton
--- NOTE | 2023-01-01 09:03 | Electrocardiogram Report ---
Test Reason : Blood Pressure : / mmHG Vent. Rate : 074 BPM Atrial Rate : 074 BPM P-R Int : 154 ms QRS Dur : 090 ms QT Int : 408 ms P-R-T Axes : 064 050 057 degrees QTc Int : 452 ms Poor data quality, interpretation may be adversely affected Normal sinus rhythm Normal ECG When compared with ECG of 26-NOV-2022 09:24, No significant change was found Confirmed by Tip Stockton ([id number]) on 01/01/2023 9:03:28 AM Referred By: REFERRED SELF Confirmed By:Tip Stockton
[2023-01-01] MEDS: LORazepam 1 MG in SYRINGE 0.5 ML IV PRN ×2 (10:00→17:40)
--- NOTE | 2023-01-01 11:39 | Communication Note ---
Date of Service: January 01, 2023 S: awake and oriented this am, reports no memory of circumstances leading up to admission; notes concerns of "seeing things" when closing his eyes. Agreeable to family meeting at 1400 O: VS with hypertension in 140s, hr 100s (sinus on tele), labs with LFT elevation and thrombocytopenia A/P: Mr. 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 The common bile duct measures 4 mm. -Liver autoimmune panel negative; Hep A Igg/Igm +, but no isolated IG test performed yet to differentiate from prior vaccination -Order IGM Hep A test -Trend CMP (OP AST/ALT 12/07 notably higher, 239/598 respectively) -Ensure OP follow up #Adjustment D/O -Continue lexapro and hydroxyzine prn #Rpeorted history of palpitations -Continue prescribed Atentolol Formal progress note to follow in am
[2023-01-01] MEDS: GABAPENTIN 600 MG TAB PO SCH ×2 (12:57→19:44)
[2023-01-01] MEDS: FLUTICASONE PROPIONATE NA SPR 16 GM BTL SCH (18:03)
[2023-01-02] MEDS: SODIUM CHLORIDE 0.9% 1,000 ML IV SCH ×3 (02:15→17:29)
[2023-01-02] MEDS: GABAPENTIN 600 MG TAB PO SCH ×3 (02:41→18:47)
[2023-01-02] MEDS: hydrOXYzine HCl 25 MG TAB PO PRN ×4 (03:57→21:00)
[2023-01-02 08:11] LABS: Hematocrit (blood only) 38.4 % (42.0-52.0); Hemoglobin 13.1 g/dl (14.0-18.0); Mean Corpuscular Hemoglobin 33.3 pg (25.0-34.0); Mean Corpuscular Hgb Conc 34.1 g/dL (32.0-36.0); Mean Corpuscular Volume 97.7 fL (80.0-100.0); Mean Platelet Volume 10.3 fL (9.4-12.4); Platelet Count 70 K/uL (130-400); RDW Coefficient of Variation 12.4 % (11.5-14.5); RDW Standard Deviation 44.8 fL (36.4-46.3); Red Blood Count 3.93 M/uL (4.70-6.10)
[2023-01-02 09:08] LABS: Albumin Globulin Ratio 1.7 (0.9-2); Albumin Level 3.6 gm/dl (3.4-5.0); Bilirubin,Total 1.8 mg/dl (0.2-1.0); Calcium 8.2 mg/dl (8.6-10.3); Creatinine Clr Calc Pharmacy 118.6 ml/min; Est GFR (Non-African American) 94.1 ml/min; Globulin 2.1 gm/dl (2.5-4.0); Magnesium 1.4 mg/dl (1.7-2.4); Phosphorus 2.4 mg/dl (2.5-4.9); Potassium 3.6 mmol/L (3.5-5.1); Total Protein 5.7 gm/dl (6.0-8.3)
[2023-01-02] MEDS: ATENOLOL 25 MG TABLET PO SCH (09:16)
[2023-01-02] MEDS: amLODIPine BESYLATE 5 MG TAB PO SCH (09:16)
[2023-01-02] MEDS: ESCITALOPRAM OXALATE 10 MG TAB PO SCH (09:17)
[2023-01-02] MEDS: FLUTICASONE PROPIONATE NA SPR 16 GM BTL SCH (09:17)
[2023-01-02] MEDS: FOLIC ACID 1 MG in SYRINGE 9.8 ML IV SCH (09:18)
[2023-01-02] MEDS: THIAMINE HCL 100 MG in SYRINGE 9 ML IV SCH (09:18)
[2023-01-02] MEDS: MAGNESIUM SULFATE / D5W 1 GM/100 ML BAG IV SCH ×3 (11:44→15:27)
--- NOTE | 2023-01-02 15:24 | Hospitalist Progress Note ---
Date of Service January 02, 2023 Assessment & Plan (1) Alcohol intoxication: Plan: 52-year-old male with past medical significant for hypertension, PVCs, GERD, presents with altered mental status and alcohol intoxication. He is being managed for the following: Alcohol intoxication Toxic metabolic encephalopathy Impending alcohol withdrawal Patient presented obtunded and acutely intoxicated, appalled by history of presentation. Mental status resolved. Admitting CT head with no acute finding. Counseling done regarding alcohol cessation. CM to assist with rehab/resource Last alcoholic drink 12/31 evening. Continue with ABELARDO S protocol, thiamine, folic acid, Gabapentin taper. Hepatic asteatosis/: thought to be 2/2 MASLD (metabolic dysfunction) and alcohol related. Transaminitis: LFTs downtrending Established with [facility] [place]/2022. Prior US on 11/2022 BILE DUCTS: 7 mm left hepatic lobe cyst. The common bile duct measures 4 mm. Admitting liver ultrasound with hepatic steatosis, common bile duct measures 0.3 cm in diameter. Outpatient GI follow-up. Monitor LFT. Chronic medical conditions: Continue with/resume home meds as and when able Hypertension: Continue home amlodipine and atenolol Adjustment disorder: Continue Lexapro and hydroxyzine as needed Reported history of palpitation: Continue atenolol DVT prophylaxis: Heparin subcu Disposition: Telemetry floor. Full code Admission and Anticipated Discharge Date Admission Date: January 01, 2023 Subjective Patient was seen and examined at bedside. Patient was lying in bed, on 1 L oxygen via nasal cannula, NAD, reports no new acute event overnight, reports eating okay and moving bowels okay. Patient states that he drinks half bottle of vodka daily, last drink was 12/31 evening. Patient denies any headache or dizziness or chest pain or palpitation. Patient explained that he would be able to be discharged once he is out of withdrawal window. modeling agency manager is helping regarding alcoholic rehab. Physical Exam Physical Exam: GENERAL: Alert and oriented x3. NAD, on RA. HEENT: No pallor, no icterus. Pupils equal, round and reactive to light. Oral mucosa moist. NECK: No JVD, no neck masses. HEART: S1 and S2 heard. Regular rate and rhythm. Tachycardia. No murmur, no gallop. RESPIRATORY SYSTEM: Normal AP diameter. No accessory muscle use. No wheezing, no crackles. ABDOMEN: Soft, bowel sounds present, nontender, no distention. CENTRAL NERVOUS SYSTEM: No facial droop. Speech is clear. Obeys simple commands. Moves extremities. EXTREMITIES: No edema, no erythema seen. Results & Data Results & Data Vital Signs (Past 12 Hours) Vital Signs Temp Pulse Pulse Resp BP Pulse Ox O2 Del Method 01/02/23 11:00 36.9 C 88 18 149/71 H 98 Nasal Cannula 01/02/23 09:00 78 01/02/23 08:30 37.2 C 91 H 18 154/60 H 95 Nasal CPAP O2 Flow Rate 01/02/23 11:00 1 01/02/23 09:00 01/02/23 08:30 3 (1) Alcohol intoxication Complication of substance-induced condition: with unspecified complication Qualified Code(s): F10.929 - Alcohol use, unspecified with intoxication, unspecified
--- OUTSIDE RECORDS SUMMARY | 2023-01-03 00:29 | External Medical Summary | Summary of Care ---
Author Name Unknown Organization [facility] Address [address] [facility] [place] [address] Phone [phone] Care Team Providers Care Learning Coordinator Name Role Phone Vida Hernandez DO Primary Care Provider [phone] Reason for Visit * Reason Onset Date Comments Medication Refill 12/20/2022 Encounter Details Date Type Department Care Team (Late st Contact Info) Description 12/20/2022 Refill Family [facility] [address] [place] [address] Vida Hernandez DO [address] [place] [address] Adjustment reaction to chronic stress Allergies No known active allergiesdocumented as of this encounter (statuses as of 12/21/2022) Medications Medication Sig Dispensed Refills Start Date End Date Status ASPIRIN 81 MG PO CHEWIndications:HTN , goal below 140/90 None Entered 0 Act clara Bismuth Subsalicylate 262 MG/15ML Oral Suspension Take 30 mL by mouth every 4 hours as needed. 0 Active diphenhydrAMINE HCl 25 MG Oral Capsule Take 1 Capsule by mouth every 6 hours as needed for Itching. 0 Active hydrOXYzine HCl 25 MG Oral TabletIndications:A djustment reaction to chronic stress Take 1 Tablet by mouth every 6 hours as needed for Anxiety. 40 Tablet 2 11/27/2022 Active Atenolol 25 MG Oral Tablet (Tenormin)Indicatio ns:Palpitations Take 1 Tablet by mouth in the morning. 90 Tablet 3 11/27/2022 Active amLODIPine Besylate 10 MG Oral Tablet (Norvasc)Indication s:HTN, goal below 140/90 Take 1 Tablet by mouth in the morning. 90 Tablet 1 12/06/2022 Active Escitalopram Oxalate 10 MG Oral Tablet (Lexapro)Indication s:Adjustment reaction to chronic stress Take 1 Tablet by mouth in the morning. 30 Tablet 5 12/21/2022 Active Escitalopram Oxalate 10 MG Oral Tablet (Lexapro)Indication s:Adjustment reaction to chronic stress Take 1 Tablet by mouth in the morning. 30 Tablet 5 11/27/2022 12/20/2022 Discontinued (Refill) documented as of this encounter (statuses as of 12/21/2022) Active Problems Problem Noted Date Diagnosed Date Esophageal reflux 08/04/2009 HTN, GOAL BELOW 140/90 12/24/2008 Overview: Modified per HTN Taxonomy. 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 Other nonspecific abnormal c ardiovascular system function study 02/03/2007 02/19/2007 NO KNOWN PROBLEMS 12/19/2005 07/21/2007 documented as of this encounter (statuses as of 12/21/2022) Immunizations Name Administration Dates Next Due PPD 12/24/2013 SEASONAL INFLUENZA, PF, 6 M & Above, IM , (FLULAVAL or FLUZONE) 02/17/2020 Seasonal Influenza, Split, I IV3, With Preserve, Inj 11/26/2014,01/08/2012,11/14/2010, 0 ,11/12/2008 TDAP (age 11 and older)(Adacel) 12/25/2010,03/05 documented as of this encounter Social History Tobacco Use Types Packs/Day Years Used Date Smoking Tobacco: Former Cigarettes 15 Passive Smoke Exposure: Never Smokeless Tobacco: Former Snuff Comments:Smoked in college Alcohol Use Standard Drinks/Week Comments Yes 0 (1 standard drink = 0.6 oz pur e alcohol) 1 or 2 beers a day PHQ-2 Answer Date Recorded PHQ Adult Total Score 0 12/11/2021 Hunger Vital Sign Answer Date Recorded Within the past 12 months, y ou worried that your food would run out before you got the money to buy more. Never true 12/12/19 22 Within the past 12 months, t he food you bought just didn't last and you didn't have money to get more. Never true 12/11/2021 Sex and Gender Information Value Date Recorded Sex Assigned at Male 02/17/2020 12:06 PM EST Gender Identity Male 02/17/2020 12:06 PM EST Sexual Orientation Straight 02/17/2020 12 :06 PM EST Job Start Date Occupation Industry Not on file Not on file Not on file documented as of this encounter Miscellaneous Notes * Telephone Encounter - Rick Hernandez MD - 12/21/2022 10:20 AM EDT Signed Prescriptions: Disp Refills Escitalopram Oxalate 10 MG Oral Tablet (Le*30 Tab*5 Sig: Take 1 Tablet by mouth in the morning. Authorizing Provider: RICK HERNANDEZ * Telephone Encounter - Michela Perez LPN - 12/21/2022 7:01 AM EDTPending Prescriptions: Disp Refills Escitalopram Oxalate 10 MG Oral Tablet (Le*30 Tab*5 Sig: Take 1 Tablet by mouth in the morning. * Telephone Encounter - Mallory Joya - 12/20/2022 6:21 PM EDT Did you pend patient's preferred pharmacy and medication before forwarding?yes Pharmacy: [id number] [address] [facility] Pending Prescriptions: Disp Refills Escitalopram Oxalate 10 MG Oral Tablet (L*30 Tab*5 Sig: Take 1 Tablet by mouth in the morning. Last Visit: 11/27/2022 (in office), 10/04/2020 (telemedicine) Next Visit: Visit date not found If no future appointments scheduled, and last appointment is greater than a year ago, please schedule patient for a follow-up appointment Last date the medication was ordered: 11.27.22 Is this request for a controlled substance?No 90 day refill request Urine Drug Screen:No results found for this or any previous visit. Patient Phone Numbers mobile [phone] Labs: Lab Results Component Value Date/Time CREAT 1.1 12/07/2022 12:43 PM CREAT 0.9 11/12/2013 01:25 PM POTASSIUM 4.6 12/07/2022 12:43 PM POTASSIUM 4.1 11/12/2013 01:25 PM TSH 0.80 11/12/2013 01:25 PM LDLCALC 254 (H) 12/08/2021 12:50 PM LDLCALC 108 05/07/2012 07:27 AM ALT 598 (H) 12/07/2022 12:43 PM ALT 26 11/12/2013 01:25 PM documented in this encounter Plan of Treatment Upcoming Encounters Date Type Department Care Team (Late st Contact Info) Description 12/25/2022 7:30 AM EST Imaging Cardiac Studies [facility] [place] [address] [place] [address] 01/16/2023 9:00 AM EST Office Visit Cardiology, [facility] [address] [place] [address] Jose Portillo MD [address] [place] [address] 01/18/2023 2:00 PM EST PulmDiagnostic Sleep Lab [facility] [address] [place] [address] [facility], Sleep Med Home Study [facility] [address] [place] [address] Health Maintenance Due Date Last Done Comments Hepatitis B (1 of 3 - 3-dose series) 1970 COVID-19 Vaccine (#1) 03/09/1971 HIV Screening 1985 Albumin/Creatinine Ratio 1988 Cologuard 09/07/2015 Colonoscopy 09/07/2015 Colorectal Cancer Screening 09/07/2015 Fecal Occult Blood Test 09/07/2015 Sigmoidoscopy 09/07/2015 Zoster Vaccines (1 of 2) 2020 DTaP,Tdap,and Td Vaccines (3 - Td or Tdap) 12/25/2020 12/25/2010, 03/05/2008 Influenza Vaccine (FLU shot) (#1) 2022 02/17/2020, 11/26/2014, 01/08/2012, Additional history exists *NEPHROLOGY REFERRAL DUE TO RESISTANT HTN 12/01/2022 Depression Screening 12/11/2022 12/11/2021 GFR 12/08/2023 12/07/2022, 11/18, 12/21/2021, Additional history exists Diabetes Screening 12/07/2025 12/07/2022, 1 , 12/21/2021, Additional history exists Lipid Panel 12/08/2026 12/08/2021, 03/2 , 12/08/2010, Additional history exists GARDASIL-HPV IMMUNIZATION SERIES Aged Out No longer eligible based on patient's age to complete this topic MENINGOCOCCAL (MENACTRA/MENVEO) Aged Out No longer eligible based on patient's age to complete this topic Pneumococcal Vaccine: Pediatrics (0 to 5 Years) and At-Risk Patients (6 to 64 Years) Aged Out No longer eligible based on patient's age to complete this topic documented as of this encounter Medical Devices Not on filedocumented as of this encounter Visit Diagnoses Diagnosis Adjustment reaction to chronic stress Unspecified adjustment reaction documented in this encounter Care Teams Learning Coordinator Relationship Specialty Start Date End Date Vida Hernandez DO [address] [place] [id number] PCP - General Family Medicine 07/27/20 documented as of this encounter
--- OUTSIDE RECORDS SUMMARY | 2023-01-03 00:30 | External Medical Summary ---
Author Name Unknown Address Unknown Organization : Laboratory Report Ordering Provider Test Date Status MANNY SHEARER 12/07/2022 12:43:39 Final Observation Date Value Abnormality Reference (Units ) Status Smooth muscle IgG 12/07/2022 12:43:39 <20 <2 0 (U) Final Reference Range:
<20 U: Negative
>or=20 U: Positive
Antibodies recognizing actin are the main component
of smooth muscle antibodies associated with auto-
immune liver disease. Actin antibodies are found in
approximately 75% of patients with autoimmune
hepatitis (AIH) type 1, approximately 65% of patients
with autoimmune cholangitis, approximately 30% of
patients with primary biliary cirrhosis and
approximately 2% of healthy controls. High values are
closely correlated with AIH type 1.

Test Performed at:
[facility]
[address]
[place] [address]
Diego Presley M.D., Ph.D.,Director of Laboratories Performing Location
--- OUTSIDE RECORDS SUMMARY | 2023-01-03 00:30 | External Medical Summary | Summary of Care ---
Author Name Unknown Organization [facility] Address [address] [place] [address] Phone [phone] Care Team Providers Care Lapper Name Role Phone Vida Hernandez DO Primary Care Provider [phone] Reason for Visit * Reason Onset Date Comments Test Results Lab 12/17/2022 Encounter Details Date Type Department Care Team (Late st Contact Info) Description 12/17/2022 Telephone Gastroenterology, [place] [address], [place] [phone] Jacki Kelly MD [address] [place], [place] [phone] Test Results Lab Allergies No known active allergiesdocumented as of this encounter (statuses as of 12/17/2022) Medications Medication Sig Dispensed Refills Start Date End Date Status ASPIRIN 81 MG PO CHEWIndications:HTN, goal below 140/90 None Entered 0 Activ e Bismuth Subsalicylate 262 MG/15ML Oral Suspension Take 30 mL by mouth every 4 hours as needed. 0 Active diphenhydrAMINE HCl 25 MG Oral Capsule Take 1 Capsule by mouth every 6 hours as needed for Itching. 0 Active Escitalopram Oxalate 10 MG Oral Tablet (Lexapro)Indications:A djustment reaction to chronic stress Take 1 Tablet by mouth in the morning. 30 Tablet 5 11/27/2022 Active hydrOXYzine HCl 25 MG Oral TabletIndications:Adju stment reaction to chronic stress Take 1 Tablet by mouth every 6 hours as needed for Anxiety. 40 Tablet 2 11/27/2022 Active Atenolol 25 MG Oral Tablet (Tenormin)Indications: Palpitations Take 1 Tablet by mouth in the morning. 90 Tablet 3 11/27/2022 Active amLODIPine Besylate 10 MG Oral Tablet (Norvasc)Indications:H TN, goal below 140/90 Take 1 Tablet by mouth in the morning. 90 Tablet 1 12/06/2022 Active documented as of this encounter (statuses as of 12/17/2022) Active Problems Problem Noted Date Diagnosed Date [...] as of this encounter (statuses as of 12/17/2022) Resolved Problems Problem Noted Date Diagnosed Date [...] as of this encounter (statuses as of 12/17/2022) Immunizations Name Administration Dates Next Due PPD 12/24/2013 SEASONAL INFLUENZA, PF, 6 M & Above, IM , (FLULAVAL or FLUZONE) 02/17/2020 Seasonal Influenza, Split, I IV3, With Preserve, Inj 11/26/2014,01/08/2012,11/14/2010, 0 10,11/12/2008 TDAP (age 11 and older)(Adacel) 12/25/2010,03/05 documented [...] encounter Miscellaneous Notes * Telephone Encounter - Jacki Kelly MD - 12/17/2022 2:53 PM EDT LFT remains elevated. Autoimmune hepatitis panel negative. Suspect alcohol induced. Will repeat LFT, BMP, and INR. Orders placed. documented in this encounter Plan of Treatment Upcoming Encounters Date Type Department Care Team (Late st Contact Info) Description 12/20/2022 4:00 PM EDT Nurse [facility] [address] [place] [address] Nurse Hilario [facility] [address] [place] [address] 12/25/2022 7:30 AM EST Imaging Cardiac Studies [facility] [address] [facility] [place] [address] 01/16/2023 9:00 AM EST Office Visit Cardiology, [place] [address] [place] [address] Jose Portillo MD [address] [place] [address] 01/18/2023 2:00 PM EST PulmDiagnostic Sleep Lab [facility] [address] [place] [address] [facility], Sleep Med Home Study [facility] [address] [place] [address] Scheduled Orders Name Type Priority Associated Diagnoses Orde r Schedule COMPREHENSIVE METABOLIC PANEL Lab Routine Elevated LFTs Expected: 12/17/2022, Expires: 01/17/2023 PT INR Lab Routine Elevated LFTs Expected: 12/17/2022, Expires: 12/18/2023 Health Maintenance Due Date Last Done Comments [...] as of this encounter Visit Diagnoses Diagnosis Hepatic steatosis- Primary Other chronic nonalcoholic liver disease Elevated LFTs Other abnormal blood chemistry documented in this encounter Care Teams Lapper Relationship Specialty Start Date End Date Vida Hernandez DO [address] [facility] [place] [address] PCP - General Family Medicine 07/27/20 documented as of this encounter
--- OUTSIDE RECORDS SUMMARY | 2023-01-03 00:30 | External Medical Summary | Summary of Care ---
Author Name Unknown Organization [facility] Address [address] [place] [address] Phone [phone] Care Team Providers Care Clin Nurse Name Role Phone Vida Hernandez DO Primary Care Provider [phone] Reason for Visit * Reason Onset Date Comments Encounter Created in Error 12/17/2022 Encounter Details Date Type Department Care Team (Late st Contact Info) Description 12/17/2022 Telephone Gastroenterology, [place] [address], [place] [phone] Jacki Kelly MD [address] [place], [place] [phone] Encounter Created in Error Allergies No known active allergiesdocumented as of [...] on file documented as of this encounter Plan of Treatment Upcoming Encounters Date Type Department Care Team (Late st Contact Info) Description 12/20/2022 4:00 PM EDT Nurse Only Ancillary [facility] [address] [place] [address] Hilario Nurse [facility] [place] [address] [place] [address] 12/25/2022 7:30 AM EST Imaging Cardiac Studies [facility] [address] [facility] [place] [address] 01/16/2023 9:00 AM EST Office Visit Cardiology, [facility] [address] [address] Jose Portillo MD [address] [place] [address] 01/18/2023 2:00 PM EST PulmDiagnostic Sleep Lab [facility] [address] [place] [address] [facility] Sleep Med Home Study [place] [address] [place] [address] Health Maintenance Due Date Last Done Comments [...] Additional history exists Lipid Panel 12/08/2026 12/08/2021, 04/19, 12/08/2010, Additional history exists GARDASIL-HPV IMMUNIZATION SERIES [...] Not on filedocumented as of this encounter Care Teams Clin Nurse Relationship Specialty Start Date End Date Vida Hernandez DO [address] [place] [address] PCP - General Family Medicine 07/27/20 documented as of this encounter
--- OUTSIDE RECORDS SUMMARY | 2023-01-03 00:30 | External Medical Summary ---
Author Name Unknown Address Unknown Organization K01:[facility] [place] [address] [place] [address] Laboratory Report Ordering Provider Test Date Status MARIANA ARSHAD 12/07/2022 12:43:39 Final Observation Date Value Abnormality Reference (Units ) Status BUN 12/07/2022 12:43:39 13 6-20 (mg/dL) Final Creatinine 12/07/2022 12:43:39 1.1 0.6-1.2 (mg/dL) Final Glomerular filtration rate/1.73 sq M.predicted [Volume Rate/Area] in Serum, Plasma or Blood by Creatinine-based formula (CKD-EPI) 12/07/2022 12:43:39 77 >=60 (mL/min) Final eGFR is calculated based on the CKD-EPI 2020 equation SODIUM 12/07/2022 12:43:39 136 135-146 (m mol/L) Final Potassium 12/07/2022 12:43:39 4.6 3.5-5.1 (m mol/L) Final Cl 12/07/2022 12:43:39 98 98-107 (mm ol/L) Final CO2 12/07/2022 12:43:39 25 22-32 (mmo l/L) Final Anion gap 12/07/2022 12:43:39 13 7-15 (mmol /L) Final Glucose 12/07/2022 12:43:39 84 70-120 (mg /dL) Final Albumin 12/07/2022 12:43:39 4.6 3.8-5.0 (g /dL) Final AST (Aspartate aminotransferase) 12/07/2022 12:43:39 239 Above high normal 10-50 (U/L) Final Alk Phos 12/07/2022 12:43:39 78 35-130 (U/ L) Final Bilirubin, Total 12/07/2022 12:43:39 0.6 <=1 .2 (mg/dL) Final Calcium 12/07/2022 12:43:39 9.7 8.4-10.2 ( mg/dL) Final Protein 12/07/2022 12:43:39 6.8 6.0-8.3 (g /dL) Final ALT (Alanine aminotransferase) 12/07/2022 12:43:39 598 Above high normal 10-50 (U/L) Final Performing Location [facility] [place] [facility] [address] [facility] [address]
--- OUTSIDE RECORDS SUMMARY | 2023-01-03 00:30 | External Medical Summary | Summary of Care ---
Author Name Unknown Organization [facility] Address [address] [place] [address] Phone [phone] Care Team Providers Care Barrel Drainer Name Role Phone Vida Hernandez DO Primary Care Provider [phone] Reason for Referral * Evaluate & Treat - Unlimited Visits (Within 10 days (routine)) - Pending Review Specialty Diagnoses / Procedures Referred By Tiffanie bradley Referred To Contact Sleep Medicine / Sleep Disorders Diagnoses Suspected sleep apnea Vida Hernandez DO [address] [facility] [place] [address] Referral ID Status Reason Start Date Expiration Date Visits Requested Visits Authorized [id number] Pending Review Specialty Services Required 3 2 2 Question Answer Referral Priority Within 10 days (routine) Where should this appointment be scheduled? [facility] ADULT REFERRAL Sleep Apnea Testing and Management Does the patient snore and/or gasp at night or has been told they stop breathing at night? Yes * Evaluate & Treat - Unlimited Visits (Within 10 days (routine)) - Pending Review Specialty Diagnoses / Procedures Referred By Tiffanie bradley Referred To Contact Gastroenterology Diagnoses Steatosis of liver Vida Hernandez DO [address] [facility] [place] [address] Referral ID Status Reason Start Date Expiration Date Visits Requested Visits Authorized [id number] Pending Review Specialty Services Required 3 [phone] Question Answer Referral Priority Within 10 days (routine) Where should this appointment be scheduled? [facility] For what condition is the patient being referred? Liver conditions * Evaluate & Treat - Unlimited Visits (Within 10 days (routine)) - Pending Review Specialty Diagnoses / Procedures Referred By Contact Referred To Contact Cardiovascular Medicine / Cardiology Diagnoses Family history of early CAD Vida Hernandez DO [address] [place] [address] Referral ID Status Reason Start Date Expiration Date Visits Requested Visits Authorized [id number] Pending Review Specialty Services Required 3 [phone] Question Answer Referral Priority Within 10 days (routine) Where should this appointment be scheduled? [facility] To which of the following clinics are you referring your patient? General Cardiology Clinic * Precert (Within 10 days (routine)) - Pending Review Specialty Diagnoses / Procedures Referred By Contac t Referred To Contact Cardiac Studies Diagnoses Family history of early CAD Procedures ECHO, STRESS (EXERCISE) W/ PHYSICIAN Vida Hernandez DO [address] [place] [address] Referral ID Status Reason Start Date Expiration Date Visits Requested Visits Authorized [id number] Pending Review Precert 11/27/[phone] Reason for Visit * Reason Comments Blood Pressure Check Elevated BP 200/130 with home cuff, hx of PVCs and tachycardia, but it has been frequent lately, occ SOB Encounter Details Date Type Department Care Team (Late st Contact Info) Description 11/27/2022 11:20 AM EDT Office Visit Family [facility] [address] [place] [address] Vida Hernandez DO [address] [place] [address] Adjustment reaction to chronic stress*; Chest tightness; Family history of early CAD; Steatosis of liver; Suspected sleep apnea; Palpitations Allergies No known active allergiesdocumented as of [...] 11/27/2022 Active hydrOXYzine HCl 25 MG Oral TabletIndications:A djustment reaction to chronic stress Take 1 Tablet by mouth every 6 hours as needed for Anxiety. 40 Tablet 2 11/27/2022 Active Atenolol 25 MG Oral Tablet (Tenormin)Indicatio ns:Palpitations Take 1 Tablet by mouth in the morning. 90 Tablet 3 11/27/2022 Active Atenolol 25 MG Oral Tablet (Tenormin)Indicatio ns:Palpitations Take 1 Tablet by mouth in the morning. 30 Tablet 0 07/06/2022 11/27/2022 Discontinued (Medication List Clean Up) Atenolol 25 MG Oral Tablet (Tenormin)Indicatio ns:Palpitations Take 1 Tablet by mouth in the morning. 90 Tablet 3 10/12/2022 11/27/2022 Discontinued (Refill) amLODIPine Besylate 5 MG Oral Tablet (Norvasc) Take 1 Tablet by mouth in the morning. 0 11/26/2022 12/06/2022 Discontinued (Refill) documented as of this encounter [...] Types Packs/Day Years Used Date Smoking Tobacco: Never Cigarettes 15 Smokeless Tobacco: Former Snuff Tobacco Cessation:Counseling Given: Not Answered Alcohol Use Standard Drinks/Week Comments Yes 0 [...] on file documented as of this encounter Last Filed Vital Signs Vital Sign Reading Time Taken Comments Blood Pressure 154/92 11/27/2022 11:06 AM EDT Pulse 120 11/27/2022 11:06 AM EDT Temperature 36.8 C (98.3 F) 11/27/2022 11:06 AM E DT Respiratory Rate 16 11/27/2022 11:06 AM EDT Oxygen Saturation 95% 11/27/2022 11:06 AM EDT Inhaled Oxygen Concentration - - Weight 104.3 kg (230 lb) 11/27/2022 11:06 AM EDT Height 177.8 cm (5' 10") 11/27/2022 11:06 AM EDT Body Mass Index 33 11/27/2022 11:06 AM EDT documented in this encounter Progress Notes * Vida Hernandez, DO - 11/27/2022 11:20 AM EDT Subjective: Gautam Mcghee is a 52 year old male. Chief Complaint Patient presents with Blood Pressure Check Elevated BP 200/130 with home cuff, hx of PVCs and tachycardia, but it has been frequent lately, occ SOB HPI: Pt presents for ER follow up today. Was seen at [facility] on 11/27/22 for sx of elevated BP w/vision changes, tachycardia and SOB. Had had milder symptoms for a while but noticing more frequently over the past few months. + chest tightness. ER records unavailable but pt notes enlarged cardiac silhouette on CXR, EKG was normal. CTA was negative, elevated L hemidiaphragm. Pt has been traveling a lot recently, increased etoh intake. Notices increased abd distension, air in his stomach. Imaging showed fatty liver. Last etoh was 2 weeks ago. C/o sx of abd bloating to the point of decreased appetite, always feels full. Started on amlodipine for elevated blood pressure. Hx of SVT - only took atenolol when elevated. Also notes he gasps for air at night, suspects sleep apnea. PHM: Patient Active Problem List Diagnosis Code ADVANCE DIRECTIVE INFORMATION HTN, GOAL BELOW 140/90 I10 Abnormal results of liver function studies R94.5 Esophageal reflux K21.9 Current Outpatient Medications Medication Sig Dispense Refill Bismuth Subsalicylate 262 MG/15ML Oral Suspension Take 30 mL by mouth every 4 hours as needed. amLODIPine Besylate 5 MG Oral Tablet (Norvasc) Take 1 Tablet by mouth in the morning. diphenhydrAMINE HCl 25 MG Oral Capsule (Benadryl Allergy) Take 1 Capsule by mouth every 6 hours as needed for Itching. ASPIRIN 81 MG PO CHEW None Entered (Patient not taking: Reported on 11/27/2022) Atenolol 25 MG Oral Tablet (Tenormin) Take 1 Tablet by mouth in the morning. (Patient not taking: Reported on 11/27/2022) 90 Tablet 3 No current facility-administered medications for this visit. Past Medical History: Diagnosis Date Abnormal results of liver function studies resolved, s/p biopsy Esophageal reflux 08/04/2009 HTN, goal below 140/90 12/24/2008 Modified per HTN Taxonomy. 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 EGD, FLEXIBLE, W/BIOPSY 02/07/10 [address],bxs shows patchy inflammation and few erosions in your stomach, blood work was negative,bxs of esophagus was normal INFORMATION navicular fracture, s/p surgery LIVER BIOPSY (GI) STRESS ECHO (EXERCISE) 01/30/2007 + inferior wall hypokinesis. done at [facility] Review of patient's allergies indicates: No Known Allergies Objective: BP 154/92 (BP Site: Left Arm, BP Position: Sitting, BP Cuff Size: Large) | Pulse 120 | Temp 36.8 C (98.3 F) (Tympanic) | Resp 16 | Ht 1.778 m (5' 10") | Wt 104.3 kg (230 lb) | SpO2 95% | BMI 33.00 kg/m | BSA 2.27 m Review of Systems: As per HPI, all other ROS neg. Physical Exam: General: alert, healthy and no distress Heart: regular rate & rhythm, no murmurs and no gallops Lungs: chest symmetric with normal AP diameter, no chest deformities noted, lungs clear to auscultation Extremities: no joint deformities, effusion, or inflammation, no edema Adjustment reaction to chronic stress (Primary) - Escitalopram Oxalate 10 MG Oral Tablet (Lexapro); Take 1 Tablet by mouth in the morning. - hydrOXYzine HCl 25 MG Oral Tablet; Take 1 Tablet by mouth every 6 hours as needed for Anxiety. Chest tightness Family history of early CAD - ECHO, STRESS (EXERCISE) W/ PHYSICIAN; Future; Expected date: 11/27/2022 - CARDIOLOGY REFERRAL OP Steatosis of liver - US ABDOMEN LIMITED; Future; Expected date: 11/27/2022 - HEPATOLOGY REFERRAL OP - COMPREHENSIVE METABOLIC PANEL; Future; Expected date: 11/27/2022 Suspected sleep apnea - SLEEP MEDICINE REFERRAL OP Palpitations - Atenolol 25 MG Oral Tablet (Tenormin); Take 1 Tablet by mouth in the morning. Follow up: as needed. Vida Hernandez DO documented in this encounter Plan of Treatment Upcoming Encounters Date Type Department Care Team (Late st Contact Info) Description 12/20/2022 4:00 PM EDT Nurse Only Ancillary [facility] [address] [address] [place]io Nurse [facility] [place] [address] [place] [address] 12/25/2022 7:30 AM EST Imaging Cardiac Studies [facility] [address] [facility] [place] [address] 01/16/2023 9:00 AM EST Office Visit Cardiology, [facility] [address] [address] Jose Portillo MD [address] [address] 01/18/2023 2:00 PM EST PulmDiagnostic Sleep Lab [place]as Rich [address] [address] [facility] [place] [address] Scheduled Orders Name Type Priority Associated Diagnoses Orde r Schedule ECHO, STRESS (EXERCISE) W/ PHYSICIAN Echocardiology Routine Family history of early CAD Expected: 11/27/2022, Expires: 12/29/2023 Scheduled Referrals Name Type Priority Associated Diagnoses Orde r Schedule CARDIOLOGY REFERRAL OP Referral Within 10 days (routine) Family history of early CAD Ordered: 11/27/2022 HEPATOLOGY REFERRAL OP Referral Within 10 days (routine) Steatosis of liver Ordered: 11/27/2022 SLEEP MEDICINE REFERRAL OP Referral Within 10 days (routine) Suspected sleep apnea Ordered: 11/27/2022 Health Maintenance Due Date Last Done Comments [...] Not on filedocumented as of this encounter Results * (ABNORMAL) COMPREHENSIVE METABOLIC PANEL (12/07/2022 12:43 PM EDT) BUN 13 6 - 20 mg/dL 12/08/2022 4:16 AM EDT [facility] Creatinine 1.1 0.6 - 1.2 mg/dL 12/08/2022 4:16 AM EDT [facility] Estimated Glomerular Filtration Rate 77 >=60 mL/min 12/08/2022 4:16 AM EDT [facility] Comment:eGFR is calculated b ased on the CKD-EPI 2020 equation Sodium 136 135 - 146 mmol/L 12/08/2022 4:16 AM EDT [facility] Potassium 4.6 3.5 - 5.1 mmol/L 12/08/2022 4:16 AM EDT [facility] Chloride 98 98 - 107 mmol/L 12/08/2022 4:16 AM EDT [facility] CO2 25 22 - 32 mmol/L 12/08/2022 4:16 AM EDT [facility] Anion Gap 13 7 - 15 mmol/L 12/08/2022 4:16 AM EDT [facility] Glucose 84 70 - 120 mg/dL 12/08/2022 4:16 AM EDT [facility] Albumin 4.6 3.8 - 5.0 g/dL 12/08/2022 4:16 AM EDT [facility] AST 239(H) 10 - 50 U/L 12/08/2022 4:16 AM EDT [facility] Alkaline Phosphatase 78 35 - 130 U/L 12/08/2022 4:16 AM EDT [facility] Bilirubin, Total 0.6 <=1.2 mg/dL 12/08/2022 4:16 AM EDT [facility] Calcium 9.7 8.4 - 10.2 mg/dL 12/08/2022 4:16 AM EDT [facility] Protein 6.8 6.0 - 8.3 g/dL 12/08/2022 4:16 AM EDT [facility] ALT 598(H) 10 - 50 U/L 12/08/2022 4:16 AM EDT LAB[facility]ATORY [facility] Blood Venous blood specimen / Unknown Venipuncture / Unknown 12/07/2022 12:43 PM EDT 12/07/2022 12:43 PM EDT Vida Hernandez DO LAB BLOOD ORDERABLE S [facility] [address] [place] [address] * US ABDOMEN LIMITED (11/27/2022 3:33 PM EDT) Anatomical Region Laterality Modality Abdomen, Body Ultrasound 11/27/2022 6:03 PM EDT Impressions 11/27/2022 6:00 PM EDT IMPRESSION Hepatic steatosis. Narrative 11/27/2022 6:00 PM EDT EXAM US ABDOMEN LIMITED-11/27/2022 3:33 pm HISTORY hepatic steatosis severe on CT abd TECHNIQUE Sonogram of the right upper quadrant. COMPARISON 04/18/2009 FINDINGS LIVER: Steatosis. No focal lesion. BILE DUCTS: 7 mm left hepatic lobe cyst. The common bile duct measures 4 mm. GALLBLADDER: No cholelithiasis, gallbladder wall thickening, or pericholecystic fluid. PANCREAS: Visualized portions are unremarkable. RIGHT KIDNEY: 11.9 cm in length. No hydronephrosis, shadowing calculi, or focal lesion. OTHER: No ascites. Procedure Note Rios Sarah MD - 11/27/2022 EXAM US ABDOMEN LIMITED-11/27/2022 3:33 pm HISTORY hepatic steatosis severe on CT abd TECHNIQUE Sonogram of the right upper quadrant. COMPARISON 04/18/2009 FINDINGS LIVER: Steatosis. No focal lesion. BILE DUCTS: 7 mm left hepatic lobe cyst. The common bile duct measures 4mm. GALLBLADDER: No cholelithiasis, gallbladder wall thickening, orpericholecystic fluid. PANCREAS: Visualized portions are unremarkable. RIGHT KIDNEY: 11.9 cm in length. No hydronephrosis, shadowing calculi, orfocal lesion. OTHER: No ascites. IMPRESSION IMPRESSION Hepatic steatosis. Vida Hernandez DO RAD ULTRASOUND documented in this encounter Visit Diagnoses Diagnosis Adjustment reaction to chronic stress- Primary Unspecified adjustment reaction Chest tightness Other chest pain Family history of early CAD Family history of ischemic heart disease Steatosis of liver Other chronic nonalcoholic liver disease Suspected sleep apnea Palpitations Steatosis of liver Other chronic nonalcoholic liver disease documented in this encounter Care Teams Barrel Drainer Relationship Specialty Start Date End Date Vida Hernandez DO [address] [place] [address] PCP - General Family Medicine 07/27/20 documented as of this encounter
--- OUTSIDE RECORDS SUMMARY | 2023-01-03 00:30 | External Medical Summary | Summary of Care ---
Author Name Unknown Organization [facility] [address] [place] [address] Phone [phone] Care Team Providers Care Teenage Program Director Name Role Phone Pavithra Peña DO Primary Care Provider [phone] Encounter Details Date Type Department Care Team (Late st Contact Info) Description 12/04/2022 Telephone Family Practice [facility] [address] [place] [address] Pavithra Peña DO [address] [place] [address] Allergies No known active allergiesdocumented as of this encounter (statuses as of 12/10/2022) Medications Medication Sig Dispensed Refills Start Date [...] the morning. 90 Tablet 1 12/06/2022 Active amLODIPine Besylate 5 MG Oral Tablet (Norvasc) Take 1 Tablet by mouth in the morning. 0 11/26/2022 12/06/2022 Discontinued (Refill) documented as of this encounter (statuses as of 12/10/2022) Active Problems Problem Noted Date Diagnosed Date [...] as of this encounter (statuses as of 12/10/2022) Resolved Problems Problem Noted Date Diagnosed Date [...] as of this encounter (statuses as of 12/10/2022) Immunizations Name Administration Dates Next Due PPD [...] as of this encounter Miscellaneous Notes * Addendum Note - Pavithra Peña DO - 12/06/2022 10:49 AM EDTAddended by: PAVITHRA PEÑA on: 12/06/2022 10:49 AM Modules accepted: Orders * Telephone Encounter - Pavithra Peña DO - 12/06/2022 10:49 AM EDT Myg to pt Increase amlodipine to 10mg daily Please schedule NV in 2 weeks * Telephone Encounter - Marissa Neff LPN - 12/04/2022 10:37 AM EDT PT STOPPED IN FOR A BP CHECK SUGGESTED BY THE PROVIDER. Blood pressure 138/98 Pulse 76 Please advise. documented in this encounter Plan of Treatment Upcoming Encounters Date Type Department Care Team (Late st Contact Info) Description 12/21/2022 11:00 AM EDT Nurse Only Ancillary [facility] [address] [facility] [place] [address] [place] Nurse [facility] [place] [address] 01/16/2023 9:00 AM EST Office Visit Cardiology, [facility] [address] [facility] [place] [address] Jose Portillo MD [address] [facility] [place] [address] 01/18/2023 2:00 PM EST PulmDiagnostic Sleep Lab [address] [place] [address] [facility] [address] [place] [address] 02/08/2023 10:35 AM EST Imaging Cardiac Studies, [address] [place] [address] Health Maintenance Due Date Last Done Comments [...] as of this encounter Visit Diagnoses Diagnosis HTN, GOAL BELOW 140/90- Primary Unspecified essential hypertension documented in this encounter Care Teams Teenage Program Director Relationship Specialty Start Date End Date Pavithra Peña DO [address] [place] [address] PCP - General Family Medicine 07/27/20 documented as of this encounter
--- OUTSIDE RECORDS SUMMARY | 2023-01-03 00:30 | External Medical Summary ---
Author Name Unknown Address Unknown Organization K01:LABORATORY [facility] - [address] [place] [address] Laboratory Report Ordering Provider Test Date Status MANNY SHEARER 12/07/2022 12:43:39 Final Observation Date Value Abnormality Reference (Units ) Status Bilirubin, Direct 12/07/2022 12:43:39 0.3 0. 0-0.3 (mg/dL) Final Performing Location [facility] - [address] [place] [address]
--- OUTSIDE RECORDS SUMMARY | 2023-01-03 00:30 | External Medical Summary ---
Author Name Unknown Address Unknown Organization : Laboratory Report Ordering Provider Test Date Status MANNY SHEARER 12/07/2022 12:43:39 Final Observation Date Value Abnormality Reference (Units ) Status Liver kidney microsomal 1 IgG Ab [Units/volume] in Serum by Immunoassay 12/07/2022 12:43:39 <=20.0 <=20.0 (U) Final Reference Range:
<=20.0 Negative
20.1-24.9 Equivocal
>=25.0 Positive
Anti-liver/kidney microsomal antibodies (Anti-LKM-1)
were previously tested by indirect immunofluorescence
(IF) using rodent liver/kidney substrate.
Identification of a specific antibody target as
cytochrome P450 IID6 has led to the current recombinant
based ELIANE. Antibodies to this cytochrome are present
in approximately 70% of patients with autoimmune
hepatitis type 2. This antibody is also present in
approximately 10% of patients with hepatitis C
infection.

Test Performed at:
[facility]
[address] [facility]
[place] [address]
Diego Presley M.D., Ph.D.,Director of Laboratories Performing Location
--- OUTSIDE RECORDS SUMMARY | 2023-01-03 00:30 | External Medical Summary | Summary of Care ---
Author Name Unknown Organization [facility] Address [address] [place] [address] Phone [phone] Care Team Providers Care Slat Basket Maker Helper Name Role Phone Vida Hernandez DO Primary Care Provider [phone] Reason for Visit * Reason Comments Outpatient Testing Encounter Details Date Type Department Care Team Description 12/07/2022 Laboratory Laboratory, [place] [address] [place] [address] [place] [address] [place] [address] Steatosis of liver; Hepatic steatosis Allergies No known active allergiesdocumented as of this encounter (statuses as of 12/07/2022) Medications Medication Sig Dispensed Refills Start Date [...] as of this encounter (statuses as of 12/07/2022) Active Problems Problem Noted Date Esophageal reflux 08/04/2009 HTN, GOAL BELOW 140/90 12/24/2008 Overview: Modified per HTN Taxonomy. ADVANCE DIRECTIVE INFORMATION 12/19/2005 Overview: Yes, Patient instructed to provide copy of advance directive for provider to review and to be scanned into Electronic Medical Record Abnormal results of liver function studi es Overview: resolved, s/p biopsy documented as of this encounter (statuses as of 12/07/2022) Resolved Problems Problem Noted Date Resolved Date Lyme arthritis of low back 12/29/201309/28 Bronchitis 04/09/2012 05/02/2012 Chest pain 04/18/2010 11/14/2010 Abdominal pain, right upper quadrant 04/18/2009 05/12/2009 Abdominal pain, epigastric 04/18/200905/12 Acute sinusitis 04/18/2009 05/12/2009 HTN, goal below 140/90 07/21/2007 9 Overview: Modified per HTN Taxonomy. Other nonspecific abnormal c ardiovascular system function study 02/03/2007 02/19/2007 NO KNOWN PROBLEMS 12/19/2005 07/21/2007 documented as of this encounter (statuses as of 12/07/2022) Immunizations Name Administration Dates Next Due PPD [...] alcohol) 1 or 2 beers a day Food Insecurity Answer Date Recorded Within the past 12 months, y ou worried that your food would run out before you got money to buy more. Never true 12/11/2021 Within the past 12 months, t he food you bought just didn't last and you didn't have money to get more. Never true 12/11/2021 Sex Assigned at Date Recorded Male 02/17/2020 12:06 PM EST Job Start Date Occupation Industry Not on file Not on file Not on file documented as of this encounter Plan of Treatment Upcoming Encounters Date Type Specialty Care Team Description 12/21/2022 Nurse Only Ancillary Nurse [facility] [address] [address] 01/16/2023 Office Visit Cardiology Jose Portillo MD [address] [place] [address] 01/18/2023 PulmDiagnostic Sleep Disorders [facility] [address] [address] 02/08/2023 Imaging Cardiac Studies Pending Results Name Type Priority Associated Diagnoses Date /Time COMPREHENSIVE METABOLIC PANEL Lab Routine Steatosis of liver 12/07/2022 12:43 PM EDT LIVER KIDNEY MICROSOMAL (LKM-1) ANTIBODY (IGG) Lab Routine Hepatic steatosis 12/07/2022 12:43 PM EDT ACTIN (SMOOTH MUSCLE) ANTIBODY (IGG) Lab Routine Hepatic steatosis 12/07/2022 12:43 PM EDT BILIRUBIN, DIRECT Lab Routine Hepatic steatosis 12/07/2022 12:43 PM EDT Health Maintenance Due Date Last Done Comments [...] HTN 12/01/2022 Depression Screening 12/11/2022 12/11/2021 GFR 11/29/2023 11/28/2022, 1104/2021, 12/08/2021, Additional history exists Diabetes Screening 11/28/2025 11/28/2022, 1 02/20/2021, 12/08/2021, Additional history exists Lipid Panel 12/08/2026 12/08/2021, [...] as of this encounter Visit Diagnoses Diagnosis Steatosis of liver Other chronic nonalcoholic liver disease Hepatic steatosis Other chronic nonalcoholic liver disease documented in this encounter Care Teams Slat Basket Maker Helper Relationship Specialty Start Date End Date Vida Hernandez, DO [address] [place] [address] PCP - General Family Medicine 07/27/20 documented as of this encounter
--- OUTSIDE RECORDS SUMMARY | 2023-01-03 00:31 | External Medical Summary ---
Author Name Unknown Address Unknown Organization K01:LABORATORY [facility] - [address] [place] [address] Laboratory Report Ordering Provider Test Date Status MANNY SHEARER 11/28/2022 15:34:12 Final Observation Date Value Abnormality Reference (Units ) Status Hep C Ab 11/28/2022 15:34:12 Negative Negative Final Further HCV quantitative domenic ting not performed per protocol. Performing Location [facility] - [address] [place] [address]
--- OUTSIDE RECORDS SUMMARY | 2023-01-03 00:31 | External Medical Summary | Summary of Care ---
Author Name Unknown Organization [facility] Address [address] [place] [address] Phone [phone] Care Team Providers Care Vegetable Vendor Name Role Phone Vida Hernandez DO Primary Care Provider [phone] Reason for Visit * Reason Comments NEW PATIENT * Evaluate & Treat - Unlimited Visits (Within 10 days (routine)) - Pending Review Specialty Diagnoses / Procedures Referred By Tiffanie bradley Referred To Contact Gastroenterology Diagnoses Steatosis of liver Vida Hernandez DO [address] [facility] [place] [address] Referral ID Status Reason Start Date Expiration Date Visits Requested Visits Authorized [id number] Pending Review Specialty Services Required [phone] Encounter Details Date Type Department Care Team Description 11/28/2022 Office Visit [facility] [address], [place] [phone] Jacik Kelly MD [address], [place] [id number] Hepatic steatosis* Allergies No known active allergiesdocumented as of this encounter (statuses as of 11/29/2022) Medications Medication Sig Dispensed Refills Start Date End Date Status ASPIRIN 81 MG PO CHEWIndications:HTN, goal below 140/90 None Entered 0 Activ e Bismuth Subsalicylate 262 MG/15ML Oral Suspension Take 30 mL by mouth every 4 hours as needed. 0 Active amLODIPine Besylate 5 MG Oral Tablet (Norvasc) Take 1 Tablet by mouth in the morning. 0 11/26/2022 Active diphenhydrAMINE HCl 25 MG Oral Capsule [...] the morning. 90 Tablet 3 11/27/2022 Active documented as of this encounter (statuses as of 11/29/2022) Active Problems Problem Noted Date Esophageal reflux 08/04/2009 HTN, GOAL BELOW 140/90 12/24/2008 Overview: Modified per HTN Taxonomy. ADVANCE DIRECTIVE INFORMATION 12/19/2005 Overview: Yes, Patient instructed to provide copy of advance directive for provider to review and to be scanned into Electronic Medical Record Abnormal results of liver function studi es Overview: resolved, s/p biopsy documented as of this encounter (statuses as of 11/29/2022) Resolved Problems Problem Noted Date Resolved Date [...] as of this encounter (statuses as of 11/29/2022) Immunizations Name Administration Dates Next Due PPD [...] Sign Reading Time Taken Comments Blood Pressure 182/120 11/28/2022 2:39 PM EDT Pulse 94 11/28/2022 2:39 PM EDT Temperature - - Respiratory Rate - - Oxygen Saturation 97% 11/28/2022 2:39 PM EDT Inhaled Oxygen Concentration - - Weight 103.9 kg (229 lb) 11/28/2022 2:39 PM EDT Height - - Body Mass Index 32.86 11/27/2022 11:06 AM EDT documented in this encounter Progress Notes * Deb Hanson MD - 11/28/2022 3:33 PM EDT I have discussed the patient's management with the medical trainee and agree with the note. Please refer to the documented findings and plan of care. This patient's visit today consisted of an evaluation. I was present and confirmed the findings of the history and exam. Deb Hanson MD * Jacki Kelly MD - 11/28/2022 2:41 PM EDT [facility] GENERAL HISTORY & PHYSICAL EXAMINATION [place], [place] [address] Name: Gautam Mcghee Date: 11/28/2022 Time: 3:22 PM Referring Physician: Vida Hernandez DO Chief Complaint Patient presents with NEW PATIENT History of Present Illness: Gautam Mcghee is a 52 year old male is referred here for hepatic steatosis. It was found on ultrasound. Patient reports drinking 5 drinks per night since 2014. His last alcohol use was last Saturday. He said he decided to quit. Patient also has obesity, HTN, and hyperlipidemia. Patient denied abdominal pain. Patient reported very sick last November after alcohol use and possible gastroenteritis. He had significant AST ALT elevation and acute kidney injury. He recovered and repeated LFT on the following month with only mildly ALT elevation. Patient lives with his . He has 2 children. Past Medical History: Past Medical History: Diagnosis Date Abnormal results of liver function studies resolved, s/p biopsy Esophageal reflux 08/04/2009 HTN, goal below 140/90 12/24/2008 Modified per HTN Taxonomy. 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 done at [facility] Current Outpatient Medications Medication Sig Dispense Refill Bismuth Subsalicylate 262 MG/15ML Oral Suspension Take 30 mL by mouth every 4 hours as needed. amLODIPine Besylate 5 MG Oral Tablet (Norvasc) Take 1 Tablet by mouth in the morning. diphenhydrAMINE HCl 25 MG Oral Capsule Take 1 Capsule by mouth every 6 hours as needed for Itching. Escitalopram Oxalate 10 MG Oral Tablet (Lexapro) Take 1 Tablet by mouth in the morning. 30 Tablet 5 hydrOXYzine HCl 25 MG Oral Tablet Take 1 Tablet by mouth every 6 hours as needed for Anxiety. 40 Tablet 2 Atenolol 25 MG Oral Tablet (Tenormin) Take 1 Tablet by mouth in the morning. 90 Tablet 3 ASPIRIN 81 MG PO CHEW None Entered (Patient not taking: Reported on 11/27/2022) No current facility-administered medications for this visit. 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[employer] Employer: [employer] Tobacco Use Smoking status: Former Years: 15.00 Types: Cigarettes Passive exposure: Never Smokeless tobacco: Former Types: Snuff Tobacco comments: Smoked in college Vaping Use Vaping Use: Never used Substance and Sexual Activity Alcohol use: Yes Comment: 1 or 2 beers a day Drug use: No Sexual activity: Yes Partners: Female Social History Narrative ; 2 healthy children; 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 Rest negative. Physical Examination: Filed Vitals: 11/28/22 1439 BP: (!) 182/120 Pulse: 94 SpO2: 97% Weight: 103.9 kg (229 lb) General: Patient is awake, alert, oriented x 3, and in no acute distress Head and face: normocephalic and atraumatic Eyes: PERRLA; no scleral icterus; normal lids Neck: Supple. Good ROM Heart: No tachycardia or bradycardia. Respiratory: No accessory muscle use in room air. Abdomen: Soft, non-tender. Bowel sounds x 4. Extremities: No cyanosis, or clubbing. No edema Skin: Warm, dry, intact. Neuro: Alert and oriented x 3. Speech appropriate, moves all extremities. No hand tremor or tongue fasciculation. Wt Readings from Last 6 Encounters: 11/28/22 103.9 kg (229 lb) 11/27/22 104.3 kg (230 lb) 12/11/21 93.7 kg (206 lb 9.6 oz) 02/27/21 95.2 kg (209 lb 12.8 oz) 02/17/20 95.5 kg (210 lb 8 oz) 09/28/16 95.3 kg (210 lb) Labs reviewed in [facility]: Reviewed in [facility] and pertinent for: Latest Reference Range & Units 12/08/21 12:50 12/21/21 08:02 Albumin 3.8 - 5.0 g/dL 5.2 (H) 4.1 AST 10 - 50 U/L 258 (H) 37 ALT 10 - 50 U/L 358 (H) 73 (H) Alkaline Phosphatase 35 - 130 U/L 59 50 Bilirubin, Total <=1.2 mg/dL 0.6 <0.2 (H): Data is abnormally high FIB-4 Calculation: 0.69 at 12/21/2021 8:02 AM Calculated from: SGOT/AST: 37 U/L at 12/21/2021 8:02 AM SGPT/ALT: 73 U/L at 12/21/2021 8:02 AM Platelets: 321 K/uL at 12/21/2021 8:02 AM Age: 51 years Radiology data reviewed in Epic: Reviewed in [facility] and pertinent for: RUQ 11/2022: IMPRESSION Hepatic steatosis. ASSESSMENT/PLAN: Gautam Mcghee is a 52 year old male with HTN, obesity, HLD, and alcohol use disorder referred herefor hepatic steatosis on U/S. FIB-4: 0.69 (low), less concern for fibrosis. 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 Encouraged patient to quit alcohol use. Patient is not interested in MAT referral. Repeat labs and check viral hepatitis panel. Patient's repeat blood pressure was 178/96 without symptoms in clinic today. CIWA score: 0. Return precautions given to patient in case he develops alcohol withdrawal symptoms. Plan CBC Comprehensive Metabolic Panel PT INR Hepatitis A Antibodies IgG and IgM Hepatitis B Surface Antigen Hepatitis B Core Antibodies IgG and IgM Hepatitis C Antibody Screen with Progression to Hepatitis C RNA Quantitative RTC in 6 months. Discussed with attending Dr. Hanson. Jacki Kelly MD Gastroenterology Fellow documented in this encounter Plan of Treatment Upcoming Encounters Date Type Specialty Care Team Description 11/29/2022 Office Visit Sleep Disorders Shanika Elena, DO [address] [place] [address] 01/16/2023 Office Visit Cardiology Jose Portillo MD [address] [place] [address] 02/08/2023 Imaging Cardiac Studies Health Maintenance Due Date Last Done Comments [...] 2022 02/17/2020, 11/26/2014, 01/08/2012, Additional history exists Depression Screening 12/11/2022 12/11/2021 GFR 11/29/2023 11/28/2022, 04/2021, 12/08/2021, Additional history exists Diabetes Screening 11/28/2025 11/28/2022, 1 02/20/2021, 12/08/2021, Additional history exists Lipid Panel 12/08/2026 12/08/2021, 03/2 , 12/08/2010, Additional history exists Hepatitis C Screening Completed 11/28/2022 , 11/28/2022, 11/28/2022 GARDASIL-HPV IMMUNIZATION SERIES Aged Out No longer [...] filedocumented as of this encounter Results * HEPATITIS B CORE ANTIBODIES IGG AND IGM (11/28/2022 3:34 PM EDT) [facility] Hepatitis B Core Antibodies IgG and IgM Negative Negative 11/28/2022 4:52 PM EDT [facility] Blood Venous blood specimen / Unknown Venipuncture / Unknown 11/28/2022 3:34 PM EDT 11/28/2022 3:51 PM EDT Jacki Kelly MD LAB BLOOD ORDERABLES [facility] [address] [place] [address] * HEPATITIS B SURFACE ANTIGEN (11/28/2022 3:34 PM EDT) [facility] Hepatitis B Surface Antigen Negative Negative 11/28/2022 4:52 PM EDT [facility] Blood Venous blood specimen / Unknown Venipuncture / Unknown 11/28/2022 3:34 PM EDT 11/28/2022 3:51 PM EDT Jacki Kelly MD LAB BLOOD ORDERABLES Performing Organization Address City/[facility] Co de Phone Number LABORATORY [place] [address] [place] [address] * (ABNORMAL) HEPATITIS A ANTIBODIES IGG AND IGM (11/28/2022 3:34 PM EDT) [facility] Hepatitis A Antibodies IgG and IgM Positive( A) Negative 11/28/2022 4:52 PM EDT [facility] Blood Venous blood specimen / Unknown Venipuncture / Unknown 11/28/2022 3:34 PM EDT 11/28/2022 3:51 PM EDT Jacki Kelly MD LAB BLOOD ORDERABLES Performing Organization Address City/[facility] Co de Phone Number [facility] [address] [place] [address] * PT INR (11/28/2022 3:34 PM EDT) [facility] Prothrombin Time 13.4 11.6 - 15.2 seconds 11/28/2022 4:25 PM EDT [facility] INR 1.0 0.8 - 1.2 11/28/2022 4:25 PM EDT [facility] Blood Venous blood specimen / Unknown Venipuncture / Unknown 11/28/2022 3:34 PM EDT 11/28/2022 3:51 PM EDT Narrative [facility] - 11/28/2022 4:25 PM EDT Warfarin Therapy INR: 2.0-3.0 conventional anticoagulation INR: 2.5-3.5 high intensity anticoagulation Jacki Kelly MD LAB BLOOD ORDERABLES [facility] [address] [place] [address] * (ABNORMAL) COMPREHENSIVE METABOLIC PANEL (11/28/2022 3:34 PM EDT) BUN 18 6 - 20 mg/dL 11/28/2022 4:30 PM EDT [facility] Creatinine 1.1 0.6 - 1.2 mg/dL 11/28/2022 4:30 PM EDT [facility] Estimated Glomerular Filtration Rate 80 >=60 mL/min 11/28/2022 4:30 PM EDT [facility] Comment:eGFR is calculated b ased on the CKD-EPI 2020 equation Sodium 133(L) 135 - 146 mmol/L 11/28/2022 4:30 PM EDT [facility] Potassium 3.9 3.5 - 5.1 mmol/L 11/28/2022 4:30 PM EDT [facility] Chloride 95(L) 98 - 107 mmol/L 11/28/2022 4:30 PM EDT LABORATORY C CO2 23 22 - 32 mmol/L 11/28/2022 4:30 PM EDT [facility] Anion Gap 15 7 - 15 mmol/L 11/28/2022 4:30 PM EDT [facility] Glucose 94 70 - 120 mg/dL 11/28/2022 4:30 PM EDT [facility] Albumin 4.6 3.8 - 5.0 g/dL 11/28/2022 4:30 PM EDT [facility] AST 198(H) 10 - 50 U/L 11/28/2022 4:30 PM EDT [facility] Alkaline Phosphatase 89 35 - 130 U/L 11/28/2022 4:30 PM EDT [facility] Bilirubin, Total 1.9(H) <=1.2 mg/dL 11/28/2022 4:30 PM EDT [facility] Calcium 9.4 8.4 - 10.2 mg/dL 11/28/2022 4:30 PM EDT [facility] Protein 7.3 6.0 - 8.3 g/dL 11/28/2022 4:30 PM EDT [facility] ALT 219(H) 10 - 50 U/L 11/28/2022 4:30 PM EDT [facility] Blood Venous blood specimen / Unknown Venipuncture / Unknown 11/28/2022 3:34 PM EDT 11/28/2022 3:51 PM EDT Jacki Kelly MD LAB BLOOD ORDERABLES Performing Organization Address City/State/[facility] Co de Phone Number LAB[facility]ATORY [facility] [address] [place] [address] * CBC (11/28/2022 3:34 PM EDT) WBC 5.30 4.00 - 10.80 K/uL 11/28/2022 4:11 PM EDT LABORATORY [facility] RBC 4.53 4.50 - 5.25 M/uL 11/28/2022 4:11 PM EDT LABORATORY [facility] HGB 15.5 14.0 - 16.8 g/dL 11/28/2022 4:11 PM EDT [facility] HCT 45.4 40.0 - 48.4 % 11/28/2022 4:11 PM EDT [facility] MCV 100.2 82.0 - 99.5 fL 11/28/2022 4:11 PM EDT LAB[facility] MCH 34.2 27.0 - 34.0 pg 11/28/2022 4:11 PM EDT LAB[facility] MCHC 34.1 32.0 - 36.0 g/dL 11/28/2022 4:11 PM EDT [facility] RDW 12.7 11.5 - 15.5 % 11/28/2022 4:11 PM EDT [facility] PLT 153 140 - 400 K/uL 11/28/2022 4:11 PM EDT [facility] MPV 10.6 6.6 - 11.1 fL 11/28/2022 4:11 PM EDT [facility] nRBCs 0 <=0 /100 WBCs 11/28/2022 4:11 PM EDT [facility] Blood Venous blood specimen / Unknown Venipuncture / Unknown 11/28/2022 3:34 PM EDT 11/28/2022 3:51 PM EDT Jacki Kelly MD LAB BLOOD ORDERABLES LAB[facility]ATORY [facility] [address] [facility] [place] [address] documented in this encounter Visit Diagnoses Diagnosis Hepatic steatosis- Primary Other chronic nonalcoholic liver disease documented in this encounter Care Teams Vegetable Vendor Relationship Specialty Start Date End Date Vida Hernandez, [address] [place] [id number] PCP - General Family Medicine 07/27/20 documented as of this encounter
--- OUTSIDE RECORDS SUMMARY | 2023-01-03 00:31 | External Medical Summary | Summary of Care ---
Author Name Unknown Organization [facility] Address [address] [place] [address] Phone [phone] Care Team Providers Care Parcel Wrapper Name Role Phone Vida Hernandez DO Primary Care Provider [phone] Encounter Details Date Type Department Care Team Description 12/04/2022 Telephone Gastroenterology, [place] [address] [place] [address] Jacki Kelly MD [address] [place] [address] Allergies No known active allergiesdocumented as of this encounter (statuses as of 12/04/2022) Medications Medication Sig Dispensed Refills Start Date [...] as of this encounter (statuses as of 12/04/2022) Active Problems Problem Noted Date Esophageal reflux 08/04/2009 HTN, GOAL BELOW 140/90 12/24/2008 Overview: Modified per HTN Taxonomy. ADVANCE DIRECTIVE INFORMATION 12/19/2005 Overview: Yes, Patient instructed to provide copy of advance directive for provider to review and to be scanned into Electronic Medical Record Abnormal results of liver function studi es Overview: resolved, s/p biopsy documented as of this encounter (statuses as of 12/04/2022) Resolved Problems Problem Noted Date Resolved Date [...] as of this encounter (statuses as of 12/04/2022) Immunizations Name Administration Dates Next Due PPD [...] Telephone Encounter - Jacki Kelly MD - 12/04/2022 12:47 PM EDT Reviewed labs results with the patient. The elevated LFT is likely due to alcohol use. IgG wnl and ANCA was negative. Would repeat LFT this week and add anti-smooth muscle antibody and LKM-1 antibody. documented in this encounter Plan of Treatment Upcoming Encounters Date Type Specialty Care Team Description 12/07/2022 Laboratory Laboratory [place] [id number] [place] [address] 01/16/2023 Office Visit Cardiology Jose Portillo MD [address] [facility] [place] [address] 01/18/2023 PulmDiagnostic Sleep Disorders [facility] Sleep [facility] Study [facility] [address] [place] [address] 02/08/2023 Imaging Cardiac Studies Scheduled Orders Name Type Priority Associated Diagnoses Orde r Schedule LIVER KIDNEY MICROSOMAL (LKM-1) ANTIBODY (IGG) Lab Routine Hepatic steatosis Expected: 12/04/2022, Expires: 03/06/2023 ACTIN (SMOOTH MUSCLE) ANTIBODY (IGG) Lab Routine Hepatic steatosis Expected: 12/04/2022, Expires: 12/05/2023 Health Maintenance Due Date Last Done Comments [...] disease documented in this encounter Care Teams Parcel Wrapper Relationship Specialty Start Date End Date Vida Hernandez, DO [address] [place] [address] PCP - General Family Medicine 07/27/20 documented as of this encounter
--- OUTSIDE RECORDS SUMMARY | 2023-01-03 00:31 | External Medical Summary | Summary of Care ---
Author Name Unknown Organization [facility] Address [address] [place] [address] Phone [phone] Care Team Providers Care Provider Network Manager Name Role Phone Vida Hernandez DO Primary Care Provider [phone] Reason for Visit * Reason Comments NEW PATIENT * Evaluate & Treat - Unlimited Visits (Within 10 days (routine)) - Pending Review Specialty Diagnoses / Procedures Referred By Tiffanie bradley Referred To Contact Gastroenterology Diagnoses Steatosis of liver Vida Hernandez DO [address] [facility] [place] [address] Referral ID Status Reason Start Date Expiration Date Visits Requested Visits Authorized [id number] Pending Review Specialty Services Required [phone] Encounter Details Date Type Department Care Team Description 11/28/2022 [facility] [address], [place] [phone] Jacki Kelly MD [address] [place], [place] [id number] Hepatic steatosis* Allergies No known active allergiesdocumented as of this encounter (statuses as of 11/28/2022) Medications Medication Sig Dispensed Refills Start Date [...] as of this encounter (statuses as of 11/28/2022) Active Problems Problem Noted Date Esophageal reflux 08/04/2009 HTN, GOAL BELOW 140/90 12/24/2008 Overview: Modified per HTN Taxonomy. ADVANCE DIRECTIVE INFORMATION 12/19/2005 Overview: Yes, Patient instructed to provide copy of advance directive for provider to review and to be scanned into Electronic Medical Record Abnormal results of liver function studi es Overview: resolved, s/p biopsy documented as of this encounter (statuses as of 11/28/2022) Resolved Problems Problem Noted Date Resolved Date [...] as of this encounter (statuses as of 11/28/2022) Immunizations Name Administration Dates Next Due PPD [...] the history and exam. Deb Hanson MD documented in this encounter Plan of Treatment Upcoming Encounters Date Type Specialty Care Team Description 11/29/2022 Office Visit Sleep Disorders Shanika Elena DO [address] [place] [address] 01/16/2023 Office Visit Cardiology Jose Portillo MD [address] [place] [address] 02/08/2023 Imaging Cardiac Studies Scheduled Orders Name Type Priority Associated Diagnoses Orde r Schedule CBC Lab Routine Hepatic steatosis Expected: 11/28/2022, Expires: 11/29/2023 COMPREHENSIVE METABOLIC PANEL Lab Routine Hepatic steatosis Expected: 11/28/2022, Expires: 11/29/2023 PT INR Lab Routine Hepatic steatosis Expected: 11/28/2022, Expires: 11/29/2023 HEPATITIS A ANTIBODIES IGG AND IGM Lab Routine Hepatic steatosis Expected: 11/28/2022, Expires: 11/29/2023 HEPATITIS B SURFACE ANTIGEN Lab Routine Hepatic steatosis Expected: 11/28/2022, Expires: 11/29/2023 HEPATITIS B CORE ANTIBODIES IGG AND IGM Lab Routine Hepatic steatosis Expected: 11/28/2022, Expires: 11/29/2023 HEPATITIS C ANTIBODY SCREEN WITH PROGRESSION TO HEPATITIS C RNA QUANTITATIVE Lab Routine Hepatic steatosis Expected: 11/28/2022, Expires: 11/29/2023 Health Maintenance Due Date Last Done Comments Hepatitis B (1 of 3 - 3-dose series) 1970 COVID-19 Vaccine (#1) 03/09/1971 HIV Screening 1985 Albumin/Creatinine Ratio 1988 Hepatitis C Screening 1988 Cologuard 09/07/2015 Colonoscopy 09/07/2015 Colorectal Cancer Screening 09/07/2015 Fecal Occult Blood Test 09/07/2015 Sigmoidoscopy 09/07/2015 Zoster Vaccines (1 of 2) 2020 DTaP,Tdap,and Td Vaccines (3 - Td or Tdap) 12/25/2020 12/25/2010, 03/05/2008 Influenza Vaccine (FLU shot) (#1) 2022 02/17/2020, 11/26/2014, 01/08/2012, Additional history exists Depression Screening 12/11/2022 12/11/2021 GFR 12/21/2022 12/21/2021, 11/19, 11/12/2013, Additional history exists Diabetes Screening 12/21/2024 12/21/2021, 1 , 11/12/2013, Additional history exists Lipid Panel 12/08/2026 12/08/2021, [...] disease documented in this encounter Care Teams Provider Network Manager Relationship Specialty Start Date End Date Vida Hernandez, DO [address] [place] [address] PCP - General Family Medicine 07/27/20 documented as of this encounter
--- OUTSIDE RECORDS SUMMARY | 2023-01-03 00:31 | External Medical Summary | Summary of Care ---
Author Name Unknown Organization [facility] Address [address] [place] [address] Phone [phone] Care Team Providers Care Dancing Instructor Name Role Phone Vida Hernandez DO Primary Care Provider [phone] Reason for Visit * Reason Comments NEW PATIENT * Evaluate & Treat - Unlimited Visits (Within 10 days (routine)) - Pending Review Specialty Diagnoses / Procedures Referred By Tiffanie bradley Referred To Contact Gastroenterology Diagnoses Steatosis of liver Vida Hernandez DO [address] [facility] [place] [address] Referral ID Status Reason Start Date Expiration Date Visits Requested Visits Authorized [id number] Pending Review Specialty Services Required [phone] Encounter Details Date Type Department Care Team Description 11/28/2022 [facility] Visit [facility] [address], [place] [id number] Jacki Kelly MD [address], [place] [id number] Hepatic steatosis* Allergies No known active allergiesdocumented [...] Kelly MD - 11/28/2022 2:41 PM EDT [facility] GENERAL HISTORY & PHYSICAL EXAMINATION [place], [place] [address] Name: Gautam Mcghee Date: 11/28/2022 Time: 3:22 [...] LEFT HEART THRU SKIN 02/06/2007 normal, at [facility] EGD, FLEXIBLE, W/BIOPSY 02/07/10 await path,bxs shows patchy inflammation and few erosions in your stomach, blood work was negative,bxs of esophagus was normal INFORMATION navicular fracture, s/p surgery LIVER BIOPSY (GI) STRESS ECHO (EXERCISE) 01/30/2007 + inferior wall hypokinesis. 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 Social Determinants of Health Food Insecurity: No [...] 95.3 kg (210 lb) Labs reviewed in [facility]: Reviewed in [facility] and pertinent for: Latest Reference Range & [...] Radiology data reviewed in Epic: Reviewed in [facility] and pertinent for: RUQ 11/2022: IMPRESSION Hepatic [...] Elena, DO [address] [place] [address] 01/16/2023 Office Visit Cardiology Jose Portillo MD [address] [place] [address] 02/08/2023 Imaging Cardiac Studies Scheduled Orders Name [...] disease documented in this encounter Care Teams Dancing Instructor Relationship Specialty Start Date End Date Vida Hernandez, DO [address] [place] [address] PCP - General Family Medicine 07/27/20 documented as of this encounter
--- OUTSIDE RECORDS SUMMARY | 2023-01-03 00:31 | External Medical Summary | Summary of Care ---
Author Name Unknown Organization [facility] Address [address] [facility] [place] [address] Phone [phone] Care Team Providers Care Nutrition Program Instructor Name Role Phone Vida Hernandez DO Primary Care Provider [phone] Encounter Details Date Type Department Care Team Description 12/04/2022 Telephone Family Practice [facility] [address] [place] [address] Vida Hernandez DO [address] [place] [address] Allergies No known active allergiesdocumented as of this encounter (statuses as of 12/05/2022) Medications Medication Sig Dispensed Refills Start Date [...] as of this encounter (statuses as of 12/05/2022) Active Problems Problem Noted Date Esophageal reflux 08/04/2009 HTN, GOAL BELOW 140/90 12/24/2008 Overview: Modified per HTN Taxonomy. ADVANCE DIRECTIVE INFORMATION 12/19/2005 Overview: Yes, Patient instructed to provide copy of advance directive for provider to review and to be scanned into Electronic Medical Record Abnormal results of liver function studi es Overview: resolved, s/p biopsy documented as of this encounter (statuses as of 12/05/2022) Resolved Problems Problem Noted Date Resolved Date [...] as of this encounter (statuses as of 12/05/2022) Immunizations Name Administration Dates Next Due PPD [...] encounter Miscellaneous Notes * Telephone Encounter - Marissa Neff LPN - 12/04/2022 10:37 AM EDT PT STOPPED IN FOR A BP CHECK SUGGESTED BY THE PROVIDER. Blood pressure 138/98 Pulse 76 Please advise. documented in this encounter Plan of Treatment Upcoming Encounters Date Type Specialty Care Team Description 12/07/2022 Laboratory Laboratory [facility] [id number] [place] [address] 01/16/2023 Office Visit Cardiology Jose Portillo MD [address] [place] [address] 01/18/2023 PulmDiagnostic Sleep Disorders [facility], Sleep Med [facility] [place] [address] 02/08/2023 Imaging Cardiac Studies Health Maintenance Due [...] Depression Screening 12/11/2022 12/11/2021 GFR 11/29/2023 11/28/2022, 11/0 04/2021, 12/08/2021, Additional history exists Diabetes Screening 11/28/2025 11/28/2022, 1 02/20/2021, 12/08/2021, Additional history exists Lipid Panel 12/08/2026 12/08/2021, /, 12/08/2010, Additional history exists GARDASIL-HPV IMMUNIZATION SERIES [...] filedocumented as of this encounter Care Teams Nutrition Program Instructor Relationship Specialty Start Date End Date Vida Hernandez, DO [address] [place] [address] PCP - General Family Medicine 07/27/20 documented as of this encounter
--- OUTSIDE RECORDS SUMMARY | 2023-01-03 00:31 | External Medical Summary ---
Author Name Unknown Address Unknown Organization K01:[facility] [address] [facility] [place] [address] Laboratory Report Ordering Provider Test Date Status JANKIMANNY 11/28/2022 15:34:12 Final Observation Date Value Abnormality Reference (Units ) Status WBC, Total 11/28/2022 15:34:12 5.30 4.00-10.80 (K/uL) Final RBC 11/28/2022 15:34:12 4.53 4.50-5.25 (M/uL) Final Hemoglobin 11/28/2022 15:34:12 15.5 14.0-16.8 (g/dL) Final HCT 11/28/2022 15:34:12 45.4 40.0-48.4 (%) Final MCV 11/28/2022 15:34:12 100.2 82.0-99.5 (fL) Final MCH 11/28/2022 15:34:12 34.2 27.0-34.0 (pg) Final MCHC 11/28/2022 15:34:12 34.1 32.0-36.0 (g/dL) Final RDW 11/28/2022 15:34:12 12.7 11.5-15.5 (%) Final Platelets 11/28/2022 15:34:12 153 140-400 (K/uL) Final MPV 11/28/2022 15:34:12 10.6 6.6-11.1 (fL) Final Nucleated erythrocytes/100 leukocytes [Ratio] in Blood by Automated count 11/28/2022 15:34:12 0 <=0 (/100 WBCs) Final Performing Location [facility] [place] [address]
--- OUTSIDE RECORDS SUMMARY | 2023-01-03 00:31 | External Medical Summary | Summary of Care ---
Author Name Unknown Organization [facility] Address [address] [facility] [place] [address] Phone [phone] Care Team Providers Care Flight Communications Specialist Name Role Phone Pavithra Peña DO Primary Care Provider [phone] Encounter Details Date Type Department Care Team Description 12/04/2022 Telephone Family Practice [facility] [address] [place] [address] Pavithra Peña DO [address] [place] [address] Allergies No known active allergiesdocumented as of this encounter (statuses as of 12/06/2022) Medications Medication Sig Dispensed Refills Start Date [...] as of this encounter (statuses as of 12/06/2022) Active Problems Problem Noted Date Esophageal reflux 08/04/2009 HTN, GOAL BELOW 140/90 12/24/2008 Overview: Modified per HTN Taxonomy. ADVANCE DIRECTIVE INFORMATION 12/19/2005 Overview: Yes, Patient instructed to provide copy of advance directive for provider to review and to be scanned into Electronic Medical Record Abnormal results of liver function studi es Overview: resolved, s/p biopsy documented as of this encounter (statuses as of 12/06/2022) Resolved Problems Problem Noted Date Resolved Date [...] as of this encounter (statuses as of 12/06/2022) Immunizations Name Administration Dates Next Due PPD [...] Specialty Care Team Description 12/07/2022 Laboratory Laboratory [facility] [address] [place] [address] 01/16/2023 Office Visit Cardiology Jose Portillo MD [address] [place] [address] 01/18/2023 PulmDiagnostic Sleep Disorders [facility] Sleep Med Home Study [place] [address] [place] [address] 02/08/2023 Imaging Cardiac Studies Health Maintenance Due [...] hypertension documented in this encounter Care Teams Flight Communications Specialist Relationship Specialty Start Date End Date Pavithra Peña, DO [address] [place] [address] PCP - General Family Medicine 07/27/20 documented as of this encounter
--- OUTSIDE RECORDS SUMMARY | 2023-01-03 00:31 | External Medical Summary | Summary of Care ---
Author Name Unknown Organization [facility] Address [address] [place] [place] [address] Phone [phone] Care Team Providers Care Mule Operator Name Role Phone Vida Hernandez DO Primary Care Provider [phone] Reason for Visit * Reason Comments NEW PATIENT Here new sleep disor tanmay. Has snoring badly wakes up every hour taking deep breaths doesn't sleep thru night. Also stops breathing. * Evaluate & Treat - Unlimited Visits (Within 10 days (routine)) - Pending Review Specialty Diagnoses / Procedures Referred By Tiffanie bradley Referred To Contact Sleep Medicine / Sleep Disorders Diagnoses Suspected sleep apnea Vida Hernandez, DO [address] [place] [address] Referral ID Status Reason Start Date Expiration Date Visits Requested Visits Authorized [id number] Pending Review Specialty Services Required 3 2 2 Encounter Details Date Type Department Care Team Description 11/29/2022 Office Visit Sleep Disorders [facility] [address] [place] [id number] Shanika Elena DO [address] [place] [address] Snoring*; Sleep apnea, unspecified type; HTN, GOAL BELOW 140/90 Allergies No known active allergiesdocumented as of [...] Smoke Exposure: Never Smokeless Tobacco: Former Snuff Tobacco Cessation:Counseling Given: Not Answered Comments:Smoked in college Alcohol Use Standard Drinks/Week [...] Sign Reading Time Taken Comments Blood Pressure 144/102 11/29/2022 1:11 PM EDT Pulse 88 11/29/2022 1:11 PM EDT Temperature 37 C (98.6 F) 11/29/2022 1:11 PM EDT Respiratory Rate 16 11/29/2022 1:11 PM EDT Oxygen Saturation 96% 11/29/2022 1:11 PM EDT Inhaled Oxygen Concentration - - Weight 102.5 kg (226 lb) 11/29/2022 1:11 PM EDT Height 177.8 cm (5' 10") 11/29/2022 1:11 PM EDT Body Mass Index 32.43 11/29/2022 1:11 PM EDT documented in this encounter Patient Instructions * Patient Instructions* Shanika Elena DO - 11/29/2022 1:36 PM EDT OBSTRUCTIVE SLEEP APNEA We are concerned that you may have obstructive sleep apnea. Obstructive sleep apnea is when someonehas difficulties with breathing only during sleep. This typically happens without the patient beingaware they are having breathing issues. Obstructive sleep apnea is very common. It can be seen in kids and adults. It can cause symptoms of excessive daytime sleepiness, fatigue, morning headaches, and poor memory and cognition. It can also lead to difficulties at work or school and motor vehicle accidents. If left untreated, it puts people at risk for heart attacks, strokes, and diabetes. We diagnose obstructive sleep apnea with either an in-lab sleep study or a home sleep apnea test. More information can be obtained at: [email or web address].org documented in this encounter Progress Notes * Shanika Elena DO - 11/29/2022 1:08 PM EDT Sleep Medicine Evaluation [address] [address] Consultation was requested by: Vida Hernandez DO for: suspected sleep apnea: "gasps for air at night" and a copy of this report is being sent to the provider electronically. Relevant available records reviewed. HPI: Gautam Mcghee is a(n) 52 year old male presenting for evaluation of suspected sleep apnea. Loud snoring Wakes up not breathing right, for about 8 years. Patient reports a typical bedtime of 8-9 pm. It takes varying times, within an hour, to fall asleep. Falls asleep with TV on. Patient awakens often every hour or two overnight, sometimes catches himself snoring or gasping. It takes varying times, sometimes 2-3 hours, to return to sleep; needs to watch TV (due to mind racing). Patient awakens for the day at around 4-5 AM without an alarm, feeling sometimes very tired. Patient does often feel or tired during the day. Patient does take naps. Works from home, naps at lunchtime many days. Patient does use caffeine, coffee. He sleeps on his side. The patient reports having ("+" indicates reports, "-" indicates denies): + Snoring, very loudly - Observed apneas + Choking/gasping awakenings + Mouth breathing - Acid reflux at night - Nocturia - Morning headaches Restless Legs Syndrome Symptoms ("+" indicates reports, "-" indicates denies): Rare sxs (1-2 x/year) Parasomnias Symptoms ("+" indicates reports, "-" indicates denies): - Sleepwalking - Dream-enactment Excessive Daytime Sleepiness: [place] Sleepiness Scale 6 Modified F.O.S.Q. 26 no Drowsy driving + Sleepy with sedentary activity Travel Screening Question 11/29/2022 12:37 PM EDT - Filed by Patient Do you have any of the following new or worsening symptoms? None of these Have you recently been in contact with someone who was sick? No / Unsure [place] Sleepiness Scale Question 11/29/2022 1:09 PM EDT - Filed by Nany Joya LPN What is the chance you will doze off in the following situation? Sitting and reading No chance of dozing Watching TV High chance of dozing Sitting inactive in a public place, such as a theater or meeting No chance of dozing As a passenger in a car for an hour without a break No chance of dozing Lying down to rest in the afternoon when circumstances permit High chance of dozing When sitting and talking to someone No chance of dozing When sitting quietly after lunch without alcohol No chance of dozing In a car, while stopped for a few minutes in traffic No chance of dozing Score (range: 0 - 24) 6 Functional Outcomes Of Sleep Question 11/29/2022 1:11 PM EDT - Filed by Nany Joya LPN Please complete the following questions. Do you have difficulty concentrating because you are sleepy or tired? Yes, moderate Do you have difficulty remembering things because you are sleepy or tired? Yes, moderate Do you have difficulty operating a motor vehicle for short distances (less than 100 miles) because you become sleepy? No Do you have difficulty operating a motor vehicle for long distances (more than 100 miles) because you become sleepy? Yes, a little Do you have difficulty visiting family or friends in their home because you become sleepy or tired?No Has your relationship with family, friends, or work colleagues been affected because you are sleepyor tired? Yes, extreme Do you have difficulty watching a movie or video because you become sleepy or tired? Yes, a little Do you have difficulty being as active as you want to be in the evening because you are tired or sleepy? Yes, extreme Do you have difficulty being as active as you want to be in the morning because you are tired or sleepy? Yes, moderate Has your mood been affected because you are sleepy or tired? No Score (range: 10 - 40) 26 Prior sleep study: none PMH: Past Medical History: Diagnosis Date Abnormal results of liver function studies resolved, s/p biopsy Esophageal reflux 08/04/2009 HTN, goal below 140/90 12/24/2008 Modified per HTN Taxonomy. 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 done at [facility] T&A as a child ALLERGIES: Review of patient's allergies indicates: No Known Allergies MEDS: Outpatient Medications Marked as Taking for the 11/29/22 encounter (Office Visit) with Shanika Elena, DO Medication Sig amLODIPine Besylate 5 MG Oral Tablet (Norvasc) Take 1 Tablet by mouth in the morning. Atenolol 25 MG Oral Tablet (Tenormin) Take 1 Tablet by mouth in the morning. diphenhydrAMINE HCl 25 MG Oral Capsule Take 1 Capsule by mouth every 6 hours as needed for Itching. Escitalopram Oxalate 10 MG Oral Tablet (Lexapro) Take 1 Tablet by mouth in the morning. hydrOXYzine HCl 25 MG Oral Tablet Take 1 Tablet by mouth every 6 hours as needed for Anxiety. Bismuth Subsalicylate 262 MG/15ML Oral Suspension Take 30 mL by mouth every 4 hours as needed. He takes diphenhydramine most nights for sleep. Additional ROS: Constitutional: + weight gain of 20 lbs in the past year (attributed to frequent travel in the pastyear, eating out) FHx: no known family history of sleep disordered breathing Social hx: Tobacco Use: Medium Risk Smoking Tobacco Use: Former Smokeless Tobacco Use: Former Passive Exposure: Never Alcohol use: he was drinking about 5 drinks a night for a while, but stopped. 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 PE: VITAL SIGNS: Filed Vitals: 11/29/22 1311 BP: 144/102 Pulse: 88 Resp: 16 Temp: 37 C (98.6 F) TempSrc: Tympanic SpO2: 96% Weight: 102.5 kg (226 lb) Height: 1.778 m (5' 10") Body mass index is 32.43 kg/m. GEN: Ambulatory, obese, NAD ORAL: Hard palate narrow, shallow Oral mucous membranes moist OP: No thrush or lesions Uvula normal Soft palate normal Mallampati IV NECK: Circumference enlarged 17" RESP: Unlabored respirations Breath sounds clear, no wheezes or rales CVS: Regular rate and rhythm No murmurs or gallops NEURO: Speech clear and appropriate IMPRESSION/RECOMMENDATIONS: Loud snoring, frequent nighttime awakenings, gasping awakenings, fatigue, hypertension currently not well controlled - suspect ZAYDA - STOP-BANG 6 (snoring, tired, HTN, age > 50, large neck circumference, and male) - Discussed the pathophysiology, implications on short- and long-term health, diagnostic evaluation, and likely treatment of ZAYDA - Schedule a WatchPAT home sleep apnea test to evaluate for ZAYDA. Discussed that if the HSAT does not show ZAYDA, we will recommend in-lab PSG. - Avoid driving when sleepy/drowsy. - Discussed the relationship between weight and sleep apnea. Sleep apnea may improve with weight loss. Please verify the following with the patient before ordering WatchPAT study: Does patient have Wifi? Yes Does patient have smart phone? Yes Do they have acrylic nails or nail estonian? No: Do they have a pacemaker? No Are they on alphablockers? Please list which med is the alphablocker: no Takes atenolol in the morning. What is the phone number of the cell phone they will be using? [phone] Follow-up: Return will send MyG with WatchPAT results. | Check-out note: WatchPAT [place] Elena DO documented in this encounter Nursing Notes * Nany Joya LPN - 11/29/2022 1:14 PM EDT Chief Complaint Patient presents with NEW PATIENT Here new sleep disorder. Has snoring badly wakes up every hour taking deep breaths doesn't sleep thru night. Also stops breathing. Neck: 17". Travel Screening Question 11/29/2022 12:37 PM EDT - Filed by Patient Do you have any of the following new or worsening symptoms? None of these Have you recently been in contact with someone who was sick? No / Unsure [place] Sleepiness Scale Question 11/29/2022 1:09 PM EDT - Filed by Nany Joya LPN What is the chance you will doze off in the following situation? Sitting and reading No chance of dozing Watching TV High chance of dozing Sitting inactive in a public place, such as a theater or meeting No chance of dozing As a passenger in a car for an hour without a break No chance of dozing Lying down to rest in the afternoon when circumstances permit High chance of dozing When sitting and talking to someone No chance of dozing When sitting quietly after lunch without alcohol No chance of dozing In a car, while stopped for a few minutes in traffic No chance of dozing Score (range: 0 - 24) 6 Functional Outcomes Of Sleep Question 11/29/2022 1:11 PM EDT - Filed by Nany Joya LPN Please complete the following questions. Do you have difficulty concentrating because you are sleepy or tired? Yes, moderate Do you have difficulty remembering things because you are sleepy or tired? Yes, moderate Do you have difficulty operating a motor vehicle for short distances (less than 100 miles) because you become sleepy? No Do you have difficulty operating a motor vehicle for long distances (more than 100 miles) because you become sleepy? Yes, a little Do you have difficulty visiting family or friends in their home because you become sleepy or tired?No Has your relationship with family, friends, or work colleagues been affected because you are sleepyor tired? Yes, extreme Do you have difficulty watching a movie or video because you become sleepy or tired? Yes, a little Do you have difficulty being as active as you want to be in the evening because you are tired or sleepy? Yes, extreme Do you have difficulty being as active as you want to be in the morning because you are tired or sleepy? Yes, moderate Has your mood been affected because you are sleepy or tired? No Score (range: 10 - 40) 26 documented in this encounter Plan of Treatment Upcoming Encounters Date Type Specialty Care Team Description 12/04/2022 Nurse Only Ancillary Nurse Gigi [address] [place] [address] 01/16/2023 Office Visit Cardiology Jose Portillo MD [address] [place] [address] 01/18/2023 PulmDiagnostic Sleep Disorders [facility], Sleep Med Home Study [place] [address] [place] [address] 02/08/2023 Imaging Cardiac Studies Scheduled Orders Name Type Priority Associated Diagnoses Orde r Schedule HOME SLEEP TEST W/TYPE 4 MONITOR, 3 CHANNEL Procedures Routine Snoring Sleep apnea, unspecified type HTN, GOAL BELOW 140/90 Ordered: 11/29/2022 Health Maintenance Due Date Last Done Comments [...] Depression Screening 12/11/2022 12/11/2021 GFR 11/29/2023 11/28/2022, 11/04/2021, 12/08/2021, Additional history exists Diabetes Screening 11/28/2025 11/28/2022, 1 02/20/2021, 12/08/2021, Additional history exists Lipid Panel 12/08/2026 12/08/2021, 03/, 12/08/2010, Additional history exists Hepatitis C Screening [...] as of this encounter Visit Diagnoses Diagnosis Snoring- Primary Other dyspnea and respiratory abnormality Sleep apnea, unspecified type HTN, GOAL BELOW 140/90 Unspecified essential hypertension documented in this encounter Care Teams Mule Operator Relationship Specialty Start Date End Date Vida Hernandez, DO [address] [place] [address] PCP - General Family Medicine 07/27/20 documented as of this encounter
--- OUTSIDE RECORDS SUMMARY | 2023-01-03 00:31 | External Medical Summary | Summary of Care ---
Author Name Unknown Organization [facility] Address [address] [facility] [place] [address] Phone [phone] Care Team Providers Care Professor Of Psychiatry Name Role Phone Vida Hernandez DO Primary Care Provider [phone] Reason for Visit * Reason Onset Date Comments Advice 11/29/2022 Encounter Details Date Type Department Care Team Description 11/29/2022 Telephone Family Practice [facility] [address] [place] [address] Vida Hernandez DO [address] [place] [address] Advice Allergies No known active allergiesdocumented as of [...] encounter Miscellaneous Notes * Telephone Encounter - Vida Hernandez DO - 12/04/2022 8:49 AM EDT Noted thanks * Telephone Encounter - Oksana Ortiz LPN - 12/04/2022 7:43 AM EDT Called pt, last week 150's over 110's. But seems to be coming down. This week a little better, 130's over low 100's. Currently taking Amlodipine 1 1/2 tablets once a day of BP med. Has [place] for bp check today at [place]. documented in this encounter Plan of Treatment Upcoming Encounters Date Type Specialty Care Team Description 12/04/2022 Nurse Only [facility] [place] [address] 01/16/2023 Office Visit Cardiology Jose Portillo MD [address] [place] [address] 01/18/2023 PulmDiagnostic Sleep Disorders [facility] Sleep Med Home Study [facility] [address] [place] [address] 02/08/2023 Imaging Cardiac Studies Health Maintenance Due [...] 12/08/2026 12/08/2021, 03/, 12/08/2010, Additional history exists GARDASIL-HPV IMMUNIZATION SERIES [...] filedocumented as of this encounter Care Teams Professor Of Psychiatry Relationship Specialty Start Date End Date Vida Hernandez DO [address] [place] [address] PCP - General Family Medicine 07/27/20 documented as of this encounter
--- OUTSIDE RECORDS SUMMARY | 2023-01-03 00:31 | External Medical Summary | Summary of Care ---
Author Name Unknown Organization [facility] Address [address] [place] [address] Phone [phone] Care Team Providers Care Manufacturer Name Role Phone Vida Hernandez DO Primary Care Provider [phone] Reason for Visit * Reason Comments Outpatient Testing Encounter Details Date Type Department Care Team Description 11/28/2022 Laboratory Outpatient Laboratory, [facility] [address] [place] [address] [facility], Lab B1a [address] [place] [address] Hepatic steatosis Allergies No known active allergiesdocumented [...] Sleep Disorders Shanika Elena DO [address] [place] [address] 01/16/2023 Office Visit Cardiology Jose Portillo MD [address] [place] [address] 02/08/2023 Imaging Cardiac Studies Scheduled Orders Name Type Priority Associated Diagnoses Orde r Schedule HEPATITIS C ANTIBODY Lab Routine Hepatic steatosis Ordered: 11/28/2022 HEPATITIS C RNA ADD ON Lab Routine Hepatic steatosis Ordered: 11/28/2022 Health Maintenance Due Date Last Done Comments [...] of this encounter Visit Diagnoses Diagnosis Hepatic steatosis Other chronic nonalcoholic liver disease documented in this encounter Care Teams Manufacturer Relationship Specialty Start Date End Date Vida Hernandez, [address] [place] [address] PCP - General Family Medicine 07/27/20 documented as of this encounter
--- OUTSIDE RECORDS SUMMARY | 2023-01-03 00:31 | External Medical Summary | Summary of Care ---
Author Name Unknown Organization [facility] Address [address] [facility] [place] [address] Phone [phone] Care Team Providers Care Bottom Worker Name Role Phone Pavithra Peña DO Primary Care Provider [phone] Encounter Details Date Type Department Care Team Description 12/04/2022 Telephone Family Practice [facility] [address] [place] [address] Pavithra Peña DO [address] [place] [address] Allergies No known active allergiesdocumented as of [...] Specialty Care Team Description 12/07/2022 Laboratory [facility] [address] [place] [address] 01/16/2023 Office Visit Cardiology Jose Portillo MD [address] [place] [address] 01/18/[address] [facility] Sleep Med Home Study [facility] [address] [place] [address] 02/08/2023 Imaging Cardiac Studies Health Maintenance Due [...] hypertension documented in this encounter Care Teams Bottom Worker Relationship Specialty Start Date End Date Pavithra Peña, DO [address] [place] [address] PCP - General Family Medicine 07/27/20 documented as of this encounter
--- OUTSIDE RECORDS SUMMARY | 2023-01-03 00:31 | External Medical Summary | Summary of Care ---
Author Name Unknown Organization [facility] Address [address] [place] [address] Phone [phone] Care Team Providers Care Industrial Controls Technician Name Role Phone Vida Hernandez DO Primary Care Provider [phone] Reason for Visit * Reason Comments NEW PATIENT * Evaluate & Treat - Unlimited Visits (Within 10 days (routine)) - Pending Review Specialty Diagnoses / Procedures Referred By Tiffanie bradley Referred To Contact Gastroenterology Diagnoses Steatosis of liver Vida Hernandez DO [address] [facility] [place] [address] Referral ID Status Reason Start Date Expiration Date Visits Requested Visits Authorized [id number] Pending Review Specialty Services Required 3 [phone] Encounter Details Date Type Department Care Team Description 11/28/2022 [facility] [address] [place], [place] [phone] Jacki Kelly MD [address], [place] [phone] Hepatic steatosis* Allergies No known active allergiesdocumented [...] documented in this encounter Progress Notes * Bri Quinonez LPN - 11/29/2022 8:08 AM EDT Patient was contacted for Specialty HTN. Visit date not found (in office), Visit date not found (telemedicine) Care Gap Outreach Action Taken: Called: Spoke with patient regarding elevated Blood Pressure at recent visit. Patient denies headache, blurred vision, dizziness, chest pain or SOB. Agreeable to BP check-requesting to have BP check at [facility]-scheduled Advised patient to proceed to ED should any of the above symptoms develop. Patient verbalizes understanding. Bri Quinonez LPN 11/29/2022 * Deb Hanson MD - 11/28/2022 3:33 [...] Kelly MD - 11/28/2022 2:41 PM EDT [facility] Gastroenterology Clinic GENERAL HISTORY & PHYSICAL EXAMINATION [place] [address] Name: Gautam Mcghee Date: 11/28/2022 Time: 3:22 [...] LEFT HEART THRU SKIN 02/06/2007 normal, at [facility] EGD, FLEXIBLE, W/BIOPSY 02/07/10 await path,bxs shows patchy inflammation and few erosions in your stomach, blood work was negative,bxs of esophagus was normal INFORMATION navicular fracture, s/p surgery LIVER BIOPSY (GI) STRESS ECHO (EXERCISE) 01/30/2007 + inferior wall hypokinesis. 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[employer] Employer: [employer] Tobacco Use Smoking status: Former Years: 15.00 Types: Cigarettes Passive exposure: Never Smokeless tobacco: Former Types: Snuff Tobacco comments: Smoked in college Vaping Use Vaping Use: Never used Substance and Sexual Activity Alcohol use: Yes Comment: 1 or 2 beers a day Drug use: No Sexual activity: Yes Partners: Female Social History Narrative ; 2 healthy children; 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 [employer] Social Determinants of Health Food Insecurity: No [...] 95.3 kg (210 lb) Labs reviewed in [employer]: Reviewed in [employer] and pertinent for: Latest Reference Range & [...] Age: 51 years Radiology data reviewed in [employer]: Reviewed in [employer] and pertinent for: RUQ 11/2022: IMPRESSION Hepatic [...] Elena DO [address] [place] [address] 12/04/2022 [facility] [address] 01/16/2023 Office Visit Cardiology Jose Portillo MD [address] [place] [address] 02/08/2023 Imaging Cardiac Studies Health Maintenance Due [...] IGG AND IGM (11/28/2022 3:34 PM EDT) Hepatitis B Core Antibodies IgG and IgM Negative Negative 11/28/2022 4:52 PM EDT LABORATORY [facility] Blood Venous blood specimen / Unknown Venipuncture / Unknown 11/28/2022 3:34 PM EDT 11/28/2022 3:51 PM EDT Jacki Kelly MD LAB BLOOD ORDERABLES Performing Organization Address City/State/[facility] Co de Phone Number LABORATORY [facility] [address] [place] [address] * HEPATITIS B SURFACE ANTIGEN (11/28/2022 3:34 PM EDT) Hepatitis B Surface Antigen Negative Negative 11/28/2022 4:52 PM EDT LABORATORY [facility] Blood Venous blood specimen / Unknown Venipuncture / Unknown 11/28/2022 3:34 PM EDT 11/28/2022 3:51 PM EDT Jacki Kelly MD LAB BLOOD ORDERABLES Performing Organization Address City/[facility]/ZIP Co de Phone Number LABORATORY [facility] [address] [place] [address] * (ABNORMAL) HEPATITIS A ANTIBODIES IGG AND IGM (11/28/2022 3:34 PM EDT) Pathologist [facility] Hepatitis A Antibodies IgG and IgM Positive( A) Negative 11/28/2022 4:52 PM EDT LABORATORY [facility] Blood Venous blood specimen / Unknown Venipuncture / Unknown 11/28/2022 3:34 PM EDT 11/28/2022 3:51 PM EDT Jacki Kelly MD LAB BLOOD ORDERABLES Performing Organization Address [facility] Co de Phone Number LABORATORY [facility] [address] [place] [address] * PT INR (11/28/2022 3:34 PM EDT) [facility] Prothrombin Time 13.4 11.6 - 15.2 seconds 11/28/2022 4:25 PM EDT LABORATORY [facility] INR 1.0 0.8 - 1.2 11/28/2022 4:25 PM EDT LABORATORY [facility] Blood Venous blood specimen / Unknown Venipuncture / Unknown 11/28/2022 3:34 PM EDT 11/28/2022 3:51 PM EDT Narrative LABORATORY [facility] - 11/28/2022 4:25 PM EDT Warfarin Therapy INR: 2.0-3.0 conventional anticoagulation INR: 2.5-3.5 high intensity anticoagulation Jacki Kelly MD LAB BLOOD ORDERABLES Performing Organization Address City/[facility]/ZIP Co de Phone Number LABORATORY [facility] [address] [place] [address] * (ABNORMAL) COMPREHENSIVE METABOLIC PANEL (11/28/2022 3:34 PM EDT) Pathologist [facility] BUN 18 6 - 20 mg/dL 11/28/2022 4:30 PM EDT LABORATORY [facility] Creatinine 1.1 0.6 - 1.2 mg/dL 11/28/2022 4:30 PM EDT [facility] Estimated Glomerular Filtration Rate 80 >=60 mL/min 11/28/2022 4:30 PM EDT [facility] Comment:eGFR is calculated b ased on the CKD-EPI 2020 equation Sodium 133(L) 135 - 146 mmol/L 11/28/2022 4:30 PM EDT [facility] Potassium 3.9 3.5 - 5.1 mmol/L 11/28/2022 4:30 PM EDT [facility] Chloride 95(L) 98 - 107 mmol/L 11/28/2022 4:30 PM EDT [facility] CO2 23 22 - 32 mmol/L 11/28/2022 4:30 PM EDT [facility] Anion Gap 15 7 - 15 mmol/L 11/28/2022 4:30 PM EDT [facility] Glucose 94 70 - 120 mg/dL 11/28/2022 4:30 PM EDT [facility] Albumin 4.6 3.8 - 5.0 g/dL 11/28/2022 [...] 8.3 g/dL 11/28/2022 4:30 PM EDT LABORATORY [facility] ALT 219(H) 10 - 50 U/L 11/28/2022 4:30 PM EDT LABORATORY C Blood Venous blood specimen / Unknown Venipuncture / Unknown 11/28/2022 3:34 PM EDT 11/28/2022 3:51 PM EDT Jacki Kelly MD LAB BLOOD ORDERABLES LABORATORY [facility] [address] [place] [address] * CBC (11/28/2022 3:34 PM EDT) WBC 5.30 4.00 - 10.80 K/uL 11/28/2022 4:11 PM EDT [facility] RBC 4.53 4.50 - 5.25 M/uL 11/28/2022 4:11 PM EDT [facility] HGB 15.5 14.0 - 16.8 g/dL 11/28/2022 [...] LAB BLOOD ORDERABLES [facility] [address] [facility] [place] [address] documented in this encounter Visit Diagnoses Diagnosis Hepatic steatosis- Primary Other chronic nonalcoholic liver disease documented in this encounter Care Teams Industrial Controls Technician Relationship Specialty Start Date End Date Vida Hernandez, DO [address] [place] [address] PCP - General Family Medicine 07/27/20 documented as of this encounter
--- OUTSIDE RECORDS SUMMARY | 2023-01-03 00:31 | External Medical Summary | Summary of Care ---
Author Name Unknown Organization [facility] Address [address] [place] [address] Phone [phone] Care Team Providers Care Sweatband Maker Name Role Phone Vida Hernandez DO Primary Care Provider [phone] Reason for Visit * Reason Comments Blood Pressure Check Here for blood pres sure check Encounter Details Date Type Department Care Team Description 12/04/2022 Nurse Only Ancillary Department, [facility] [address] [place] [address] [facility], Nurse [address] [place] [address] Blood Pressure Check (Here for blood press... Allergies No known active allergiesdocumented as of [...] Sign Reading Time Taken Comments Blood Pressure 138/98 12/04/2022 10:33 AM EDT Pulse 76 12/04/2022 10:33 AM EDT Temperature - - Respiratory Rate - - Oxygen Saturation 99% 12/04/2022 10:33 AM EDT Inhaled Oxygen Concentration - - Weight - - Height - - Body Mass Index - - documented in this encounter Progress Notes * Marissa Neff LPN - 12/04/2022 10:32 AM EDT PT STOPPED IN FOR A BP CHECK SUGGESTED BY THE PROVIDER. Blood pressure 138/98 Pulse 76 Please advise. documented in this encounter Plan of Treatment Upcoming Encounters Date Type Specialty Care Team Description 12/07/2022 Laboratory Laboratory [facility] [address] [place] [facility] [place] [address] 01/16/2023 Office Visit Cardiology Jose Portillo MD [address] [place] [address] 01/18/2023 PulmDiagnostic Sleep Disorders [facility] Home Study [facility] [address] [place] [address] 02/08/2023 Imaging Cardiac Studies Health Maintenance Due [...] filedocumented as of this encounter Care Teams Sweatband Maker Relationship Specialty Start Date End Date Vida Hernandez, DO [address] [place] [address] PCP - General Family Medicine 07/27/20 documented as of this encounter
--- OUTSIDE RECORDS SUMMARY | 2023-01-03 00:31 | External Medical Summary | Summary of Care ---
Author Name Unknown Organization [facility] Address [address] [place] [address] Phone [phone] Care Team Providers Care Director Broadcast Name Role Phone Vida Hernandez DO Primary Care Provider [phone] Encounter Details Date Type Department Care Team Description 11/29/2022 Documentation Gastroenterology, [facility] [address] [place], [place] [phone] Jacki Kelly MD [address] [place] [address] Hepatic steatosis* Allergies No known active allergiesdocumented [...] on file documented as of this encounter Progress Notes * Jacki Kelly MD - 11/29/2022 1:13 PM EDT LFT elevated. 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 MELD: 6. Will also add on serology for autoimmune hepatitis. Repeat LFT in one week. documented in this encounter Plan of Treatment Upcoming Encounters Date Type Specialty Care Team Description 12/04/2022 Nurse Only Ancillary Nurse Gigi [address] [place] [address] 01/16/2023 Office Visit Cardiology Jose Portillo MD [address] [facility] [place] [address] 02/08/2023 Imaging Cardiac Studies Pending Results Name Type Priority Associated Diagnoses Date /Time IGG Lab Routine Hepatic steatosis 11/28/2022 3:34 PM EDT ANCA REFLEX PANEL Lab Routine Hepatic steatosis 11/28/2022 3:34 PM EDT Scheduled Orders Name Type Priority Associated Diagnoses Orde r Schedule IGG Lab Routine Hepatic steatosis Expected: 11/29/2022, Expires: 11/30/2023 ACTIN (SMOOTH MUSCLE) ANTIBODY (IGG) Lab Routine Hepatic steatosis Expected: 11/29/2022, Expires: 11/30/2023 LIVER KIDNEY MICROSOMAL (LKM-1) ANTIBODY (IGG) Lab Routine Hepatic steatosis Expected: 11/29/2022, Expires: 11/30/2023 ANCA REFLEX PANEL Lab Routine Hepatic steatosis Expected: 11/29/2022, Expires: 11/30/2023 HEPATIC FUNCTION PANEL Lab Routine Hepatic steatosis Every Week for 6 Occurrences starting 11/29/2022 until 11/30/2023 Health Maintenance Due Date Last Done Comments [...] disease documented in this encounter Care Teams Director Broadcast Relationship Specialty Start Date End Date Vida Hernandez, DO [address] [place] [address] PCP - General Family Medicine 07/27/20 documented as of this encounter
--- OUTSIDE RECORDS SUMMARY | 2023-01-03 00:32 | External Medical Summary | Summary of Care ---
Author Name Unknown Organization [facility] Address [address] [facility] [place] [address] Phone [phone] Care Team Providers Care Public Health Professor Name Role Phone Pavithra Peña DO Primary Care Provider [phone] Reason for Visit * Reason Onset Date Comments Medication Refill 07/05/2022 Encounter Details Date Type Department Care Team Description 07/05/2022 Refill Family Practice [facility] [address] [place] [address] Pavithra Peña DO [address] [place] [address] Palpitations Allergies No known active allergiesdocumented as of this encounter (statuses as of 07/06/2022) Medications Medication Sig Dispensed Refills Start Date End Date Status ASPIRIN 81 MG PO CHEWIndications:HTN, goal below 140/90 None Entered 0 Activ e Bismuth Subsalicylate 262 MG/15ML Oral Suspension (Pepto-Bismol) Take by mouth 30 mL every 4 hours as needed . 0 Active Atenolol 25 MG Oral Tablet (Tenormin)Indications: Palpitations Take 1 Tablet by mouth in the morning. 90 Tablet 1 07/06/2022 Active Atenolol 25 MG Oral Tablet (Tenormin)Indications: Palpitations Take 1 Tablet by mouth in the morning. 30 Tablet 0 07/06/2022 Active documented as of this encounter (statuses as of 07/06/2022) Active Problems Problem Noted Date Esophageal reflux 08/04/2009 HTN, GOAL BELOW 140/90 12/24/2008 Overview: Modified per HTN Taxonomy. ADVANCE DIRECTIVE INFORMATION 12/19/2005 Overview: Yes, Patient instructed to provide copy of advance directive for provider to review and to be scanned into Electronic Medical Record Abnormal results of liver function studi es Overview: resolved, s/p biopsy documented as of this encounter (statuses as of 07/06/2022) Resolved Problems Problem Noted Date Resolved Date [...] as of this encounter (statuses as of 07/06/2022) Immunizations Name Administration Dates Next Due PPD 12/24/2013 Seasonal Influenza, Quadriva lent, No Preserve, 6 Mons & Above, IM 02/17/2020 Seasonal Influenza, Split, I IV3, With Preserve, Inj 11/26/2014,01/08/2012,11/14/2010, 0 10,11/12/2008 TDAP (age 11 and older)(Adacel) 12/25/2010,03/05 documented as of this encounter Social History Tobacco Use Types Packs/Day Years Used Date Smoking Tobacco: Never Cigarettes 15 Smokeless Tobacco: Former Snuff Alcohol Use Standard Drinks/Week Comments Yes 0 [...] encounter Miscellaneous Notes * Telephone Encounter - Claudia Schulte RPh - 07/06/2022 8:24 AM EDTSigned Prescriptions: Disp Refills Atenolol 25 MG Oral Tablet (Tenormin) 90 Tab*1 Sig: Take 1 Tablet by mouth in the morning.Authorizing Provider: PAVITHRA PEÑA User: CLAUDIA SCHULTE-------- documented in this encounter Plan of Treatment Health Maintenance Due Date Last Done Comments [...] 12/25/2020 12/25/2010, 03/05/2008 Influenza Vaccine (FLU shot) (Season Ended) 2022 02/17/2020, 11/26/2014, 01/08/2012, Additional history exists Depression Screening, Annual for Pts 12 and Over 12/11/2022 12/11/2021 GFR - Renal Function 12/21/2022 12/21/2021, 12/08/2021, 11/12/2013, Additional history exists Diabetes Screening 12/21/2024 [...] as of this encounter Visit Diagnoses Diagnosis Palpitations documented in this encounter Care Teams Public Health Professor Relationship Specialty Start Date End Date Pavithra Peña, DO [address] [place] [address] PCP - General Family Medicine 07/27/20 documented as of this encounter
--- OUTSIDE RECORDS SUMMARY | 2023-01-03 00:32 | External Medical Summary | Summary of Care ---
Author Name Unknown Organization [facility] Address [address] [facility] [place] [address] Phone [phone] Care Team Providers Care Correctional Cook Name Role Phone Pavithra Peña DO Primary Care Provider [phone] Reason for Visit * Reason Onset Date Comments Medication Refill 10/11/2022 Encounter Details Date Type Department Care Team Description 10/11/2022 Refill Family [facility] [address] [place] [address] Pavithra Peña DO [address] [place] [address] Palpitations Allergies No known active allergiesdocumented as of this encounter (statuses as of 10/12/2022) Medications Medication Sig Dispensed Refills Start Date End Date Status ASPIRIN 81 MG PO CHEWIndications:HTN , goal below 140/90 None Entered 0 Act clara Bismuth Subsalicylate 262 MG/15ML Oral Suspension (Pepto-Bismol) Take by mouth 30 mL every 4 hours as needed . 0 Active Atenolol 25 MG Oral Tablet (Tenormin)Indicatio ns:Palpitations Take 1 Tablet by mouth in the morning. 30 Tablet 0 07/06/2022 Active Atenolol 25 MG Oral Tablet (Tenormin)Indicatio ns:Palpitations Take 1 Tablet by mouth in the morning. 90 Tablet 3 10/12/2022 Active Atenolol 25 MG Oral Tablet (Tenormin)Indicatio ns:Palpitations Take 1 Tablet by mouth in the morning. 90 Tablet 1 07/06/2022 10/11/2022 Discontinued (Refill) documented as of this encounter (statuses as of 10/12/2022) Active Problems Problem Noted Date Esophageal reflux 08/04/2009 HTN, GOAL BELOW 140/90 12/24/2008 Overview: Modified per HTN Taxonomy. ADVANCE DIRECTIVE INFORMATION 12/19/2005 Overview: Yes, Patient instructed to provide copy of advance directive for provider to review and to be scanned into Electronic Medical Record Abnormal results of liver function studi es Overview: resolved, s/p biopsy documented as of this encounter (statuses as of 10/12/2022) Resolved Problems Problem Noted Date Resolved Date [...] as of this encounter (statuses as of 10/12/2022) Immunizations Name Administration Dates Next Due PPD 12/24/2013 Seasonal Influenza, PF, 6 mo ns & Above, IM , (Flulaval) 02/17/2020 Seasonal Influenza, Split, I IV3, With [...] encounter Miscellaneous Notes * Telephone Encounter - Pavithra Peña DO - 10/12/2022 8:16 AM EDTSigned Prescriptions: Disp Refills Atenolol 25 MG Oral Tablet (Tenormin) 90 Tab*3 Sig: Take 1 Tablet by mouth in the morning. Authorizing Provider: PAVITHRA PEÑA * Telephone Encounter - Ania Rosales LPN - 10/11/2022 8:19 AM EDTPending Prescriptions: Disp Refills Atenolol 25 MG Oral Tablet (Tenormin) 90 Tab*3 Sig: Take 1 Tablet by mouth in the morning. * Telephone Encounter - ZAYDA Boswell - 10/11/2022 6:49 AM EDT Did you pend patient's preferred pharmacy and medication before forwarding?yes Pharmacy: [facility] [id number] [facility] Pending Prescriptions: Disp Refills Atenolol 25 MG Oral Tablet (Tenormin) 90 Tab*1 Sig: Take 1 Tablet by mouth in the morning. Last Visit: 12/11/2021 (in office), 10/04/2020 (telemedicine) Next Visit: Visit date not found If no future appointments scheduled, and last appointment is greater than a year ago, please schedule patient for a follow-up appointment Last date the medication was ordered: 07.06.22 Is this request for a controlled substance?No Urine Drug Screen:No results found for this or any previous visit. Patient Phone Numbers Labs: Lab Results Component Value Date/Time CREAT 1.5 (H) 12/21/2021 08:02 AM CREAT 0.9 11/12/2013 01:25 PM POTASSIUM 4.9 12/21/2021 08:02 AM POTASSIUM 4.1 11/12/2013 01:25 PM TSH 0.80 11/12/2013 01:25 PM LDLCALC 254 (H) 12/08/2021 12:50 PM LDLCALC 108 05/07/2012 07:27 AM ALT 73 (H) 12/21/2021 08:02 AM ALT 26 11/12/2013 01:25 PM documented in [...] Pts 12 and Over 12/11/2022 12/11/2021 GFR 12/21/2022 12/21/2021, 11/19, 11/12/2013, [...] Palpitations documented in this encounter Care Teams Correctional Cook Relationship Specialty Start Date End Date Pavithra Peña, [address] [place] [address] PCP - General Family Medicine 07/27/20 documented as of this encounter
--- OUTSIDE RECORDS SUMMARY | 2023-01-03 00:32 | External Medical Summary ---
Author Name Unknown Address Unknown Organization [id number]:[place] [place] [address] [place] [address] [place] [address] Laboratory Report Ordering Provider Test Date Status MANNY SHEARER 11/28/2022 15:34:12 Final Observation Date Value Abnormality Reference (Units ) Status Hepatitis B virus core Ab [Presence] in Serum 11/28/2022 15:34:12 Negative Negative Final Performing Location [facility] [place] [address] [place] [address]
--- OUTSIDE RECORDS SUMMARY | 2023-01-03 00:32 | External Medical Summary ---
Author Name Unknown Address Unknown Organization [id number]:[facility] [place] [address] [place] [address] Laboratory Report Ordering Provider Test Date Status MANNY SHEARER 11/28/2022 15:34:12 Final Observation Date Value Abnormality Reference (Units ) Status BUN 11/28/2022 15:34:12 18 6-20 (mg/dL) Final Creatinine 11/28/2022 15:34:12 1.1 0.6-1.2 (mg/dL) Final Glomerular filtration rate/1.73 sq M.predicted [Volume Rate/Area] in Serum, Plasma or Blood by Creatinine-based formula (CKD-EPI) 11/28/2022 15:34:12 80 >=60 (mL/min) Final eGFR is calculated based on the CKD-EPI 2020 equation SODIUM 11/28/2022 15:34:12 133 Below low normal 135 -146 (mmol/L) Final Potassium 11/28/2022 15:34:12 3.9 3.5-5.1 (m mol/L) Final Cl 11/28/2022 15:34:12 95 Below low normal 98- 107 (mmol/L) Final CO2 11/28/2022 15:34:12 23 22-32 (mmo l/L) Final Anion gap 11/28/2022 15:34:12 15 7-15 (mmol /L) Final Glucose 11/28/2022 15:34:12 94 70-120 (mg /dL) Final Albumin 11/28/2022 15:34:12 4.6 3.8-5.0 (g /dL) Final AST (Aspartate aminotransferase) 11/28/2022 15:34:12 198 Above high normal 10-50 (U/L) Final Alk Phos 11/28/2022 15:34:12 89 35-130 (U/ L) Final Bilirubin, Total 11/28/2022 15:34:12 1.9 Above high no rmal <=1.2 (mg/dL) Final Calcium 11/28/2022 15:34:12 9.4 8.4-10.2 ( mg/dL) Final Protein 11/28/2022 15:34:12 7.3 6.0-8.3 (g /dL) Final ALT (Alanine aminotransferase) 11/28/2022 15:34:12 219 Above high normal 10-50 (U/L) Final Performing Location LAB[facility]ATORY [facility] [place] - [facility] [place] [address]
--- OUTSIDE RECORDS SUMMARY | 2023-01-03 00:32 | External Medical Summary ---
Author Name Unknown Address Unknown Organization [id number][place] [facility] [place] [address] [facility] [address] Laboratory Report Ordering Provider Test Date Status MANNY SHEARER 11/28/2022 15:34:12 Final Observation Date Value Abnormality Reference (Units ) Status Hep A, IgG and/or IgM 11/28/2022 15:34:12 Positive Abnormal Negative Final Performing Location LABORATORY C - [address] [place] [address]
--- OUTSIDE RECORDS SUMMARY | 2023-01-03 00:32 | External Medical Summary ---
Author Name Unknown Address Unknown Organization [id number]:[facility] [place] [address] [place] [address] Laboratory Report Ordering Provider Test Date Status MANNY SHEARER 11/28/2022 15:34:12 Final Observation Date Value Abnormality Reference (Units ) Status IgG 11/28/2022 15:34:12 [id number] ( mg/dL) Final Performing Location LABORATORY [facility] - [address] [place] [address]
--- OUTSIDE RECORDS SUMMARY | 2023-01-03 00:32 | External Medical Summary ---
Author Name Unknown Address Unknown Organization K01:LABORATORY [place] [address] [place] [address] Laboratory Report Ordering Provider Test Date Status MANNY SHEARER 11/28/2022 15:34:12 Final Warfarin Therapy
INR: 2 .0-3.0 conventional anticoagulation
INR: 2.5- 3.5 high intensity anticoagulation Observation Date Value Abnormality Reference (Units ) Status PT 11/28/2022 15:34:12 13.4 11.6-15.2 (seconds) Final INR 11/28/2022 15:34:12 1.0 0.8-1.2 Final Performing Location LAB[facility]ATORY [facility] [place] - [facility] [address] [place] [address]
--- OUTSIDE RECORDS SUMMARY | 2023-01-03 00:32 | External Medical Summary | Summary of Care ---
Author Name Unknown Organization [facility] Address [address] [place] [address] Phone [phone] Care Team Providers Care Tractor Distributor Name Role Phone Vida Hernandez DO Primary Care Provider [phone] Reason for Visit * Reason Onset Date Comments Medication Refill 07/05/2022 Encounter Details Date Type Department Care Team Description 07/05/2022 Refill Family [facility] [address] [place] [address] Vida Hernandez DO [address] [place] [address] Palpitations Allergies No known active allergiesdocumented as [...] Atenolol 25 MG Oral Tablet (Tenormin)Indicatio ns:Palpitations TAKE 1 TABLET BY MOUTH DAILY 90 Tablet 1 06/19/2021 07/05/2022 Discontinued (Refill) documented as of this encounter [...] encounter Miscellaneous Notes * Telephone Encounter - CHEY Irving - 07/05/2022 2:34 PM EDT Pt's insurance called requesting emergency supply for atenolol be sent to [facility]. [facility] 07/05/2022,2:36 PM documented in this encounter Plan of [...] Palpitations documented in this encounter Care Teams Tractor Distributor Relationship Specialty Start Date End Date Vida Hernandez, DO [address] [place] [address] PCP - General Family Medicine 07/27/20 documented as of this encounter
--- OUTSIDE RECORDS SUMMARY | 2023-01-03 00:32 | External Medical Summary ---
Author Name Unknown Address Unknown Organization K01:LAB[facility]ORY [facility] [place] - [address] [facility] [address] Laboratory Report Ordering Provider Test Date Status MANNY SHEARER 11/28/2022 15:34:12 Final Observation Date Value Abnormality Reference (Units ) Status Hep B surface Ag 11/28/2022 15:34:12 Negative Neg ative Final Performing Location LABORATORY [facility] - [address] [facility] [address]
--- OUTSIDE RECORDS SUMMARY | 2023-01-03 00:32 | External Medical Summary ---
Author Name Unknown Address Unknown Organization K01:[place] [facility] [place] [address] [place] [address] Laboratory Report Ordering Provider Test Date Status MANNY SHEARER 11/28/2022 15:34:12 Final Observation Date Value Abnormality Reference (Units ) Status Neutrophil cytoplasmic Ab [Presence] in Serum by Immunofluorescence 11/28/2022 15:34:12 Negative Negative Final Neutrophil cytoplasmic Ab [Presence] in Serum by Immunofluorescence 11/28/2022 15:34:12 Negative Negative Final Negative for ANCA. Performing Location [facility] [facility] [place] [address] [place] [address]
[2023-01-03] MEDS: SODIUM CHLORIDE 0.9% 1,000 ML IV SCH ×3 (00:45→17:38)
[2023-01-03 06:27] LABS: Hematocrit (blood only) 39.2 % (42.0-52.0); Hemoglobin 13.6 g/dl (14.0-18.0); Mean Corpuscular Hemoglobin 33.3 pg (25.0-34.0); Mean Corpuscular Hgb Conc 34.7 g/dL (32.0-36.0); Mean Corpuscular Volume 96.1 fL (80.0-100.0); Mean Platelet Volume 10.7 fL (9.4-12.4); Platelet Count 63 K/uL (130-400); RDW Coefficient of Variation 12.1 % (11.5-14.5); RDW Standard Deviation 42.5 fL (36.4-46.3); Red Blood Count 4.08 M/uL (4.70-6.10); White Blood Count 4.61 K/ul (4.8-10.8)
[2023-01-03 06:42] LABS: Albumin Level 3.8 gm/dl (3.4-5.0); BUN Creatinine Ratio 11.8 (10-20); Bilirubin Direct 0.4 mg/dl (0-0.2); Bilirubin,Total 1.5 mg/dl (0.2-1.0); Calcium 8.7 mg/dl (8.6-10.3); Creatinine Clr Calc Pharmacy 129.7 ml/min; Est GFR (African American) 116.1 ml/min; Est GFR (Non-African American) 100.2 ml/min; Magnesium 1.8 mg/dl (1.7-2.4); Potassium 3.7 mmol/L (3.5-5.1); Total Protein 6.1 gm/dl (6.0-8.3)
[2023-01-03] MEDS: GABAPENTIN 600 MG TAB PO SCH ×2 (07:40→20:00)
[2023-01-03] MEDS: ESCITALOPRAM OXALATE 10 MG TAB PO SCH (07:41)
[2023-01-03] MEDS: ATENOLOL 25 MG TABLET PO SCH ×2 (07:42→22:30)
[2023-01-03] MEDS: FLUTICASONE PROPIONATE NA SPR 16 GM BTL SCH (07:42)
[2023-01-03] MEDS: amLODIPine BESYLATE 5 MG TAB PO SCH (07:42)
[2023-01-03] MEDS: FOLIC ACID 1 MG in SYRINGE 9.8 ML IV SCH (07:43)
[2023-01-03] MEDS: THIAMINE HCL 100 MG in SYRINGE 9 ML IV SCH (07:43)
[2023-01-03] MEDS ORDERED: POTASSIUM CHLORIDE CRTAB 20 MEQ TABCR PO STA (08:01)
[2023-01-03] MEDS: MAGNESIUM OXIDE 400 MG TAB PO SCH ×2 (09:59→20:00)
--- NOTE | 2023-01-03 15:42 | Hospitalist Progress Note ---
Date of Service January 03, 2023 Assessment & Plan (1) Alcohol intoxication: Plan: 52-year-old male with past medical significant for hypertension, PVCs, GERD, presents with altered mental status and alcohol intoxication. He is being managed for the following: Alcohol intoxication Toxic metabolic encephalopathy Impending alcohol withdrawal Patient presented obtunded and acutely intoxicated, appalled by history of presentation. Mental status resolved. Admitting CT head with no acute finding. Counseling done regarding alcohol cessation. CM to assist with rehab/resource Last alcoholic drink 12/31 evening. Continue with ABELARDO S protocol, thiamine, folic acid, Gabapentin taper. Pt wants OP rehab; appts already scheduled by pt's per Pt. Hepatic asteatosis/: thought to be 2/2 MASLD (metabolic dysfunction) and alcohol related. Transaminitis: LFTs downtrending Established with [facility] Hepatology 11/28/2022. Prior US on 11/2022 BILE DUCTS: 7 mm left hepatic lobe cyst. The common bile duct measures 4 mm. Admitting liver ultrasound with hepatic steatosis, common bile duct measures 0.3 cm in diameter. Outpatient GI follow-up. Monitor LFT. Chronic medical conditions: Continue with/resume home meds as and when able Hypertension: Continue home amlodipine and atenolol Adjustment disorder: Continue Lexapro and hydroxyzine as needed Reported history of palpitation: Continue atenolol DVT prophylaxis: Heparin subcu Disposition: Telemetry floor. Full code Admission and Anticipated Discharge Date Admission Date: January 01, 2023 Subjective Patient was seen and examined at bedside. Patient was lying in bed, on RA, NAD, reports no new acute event overnight, reports eating okay and moving bowels okay. Patient states that he drinks half bottle of vodka daily, last drink was 12/31 evening. Patient denies any headache or dizziness or chest pain or palpitation. Physical Exam Physical Exam: GENERAL: Alert and oriented x3. NAD, on RA. HEENT: No pallor, no icterus. Pupils equal, round and reactive to light. Oral mucosa moist. NECK: No JVD, no neck masses. HEART: S1 and S2 heard. Regular rate and rhythm. Tachycardia. No murmur, no gallop. RESPIRATORY SYSTEM: Normal AP diameter. No accessory muscle use. No wheezing, no crackles. ABDOMEN: Soft, bowel sounds present, nontender, no distention. CENTRAL NERVOUS SYSTEM: No facial droop. Speech is clear. Obeys simple commands. Moves extremities. EXTREMITIES: No edema, no erythema seen. Results & Data Results & Data Vital Signs (Past 12 Hours) Vital Signs Temp Pulse Resp BP Pulse Ox O2 Del Method O2 Flow Rate 01/03/23 11:00 36.7 C 95 H 16 160/76 H 97 Nasal CPAP 3 01/03/23 10:07 Room Air (1) Alcohol intoxication Complication of substance-induced condition: with unspecified complication Qualified Code(s): F10.929 - Alcohol use, unspecified with intoxication, unspecified
[2023-01-03] MEDS: LORazepam 2 MG in SYRINGE 1 ML IV PRN (18:42)
[2023-01-03 22:03] LABS: Appearance Urine Clear (Clear); Bilirubin Urine Negative (Negative); Blood Urine Negative (Negative); Color Urine Yellow; Glucose Urine UA Negative (Negative); Ketones Urine 1+ (Negative); Leukocyte Esterase Urine Negative (Negative); Nitrite Urine Negative (Negative); Protein Urine Negative (Negative); Specific Gravity Urine 1.019 (1.000-1.030); Urobilinogen Urine Negative (Negative)
[2023-01-04 05:27] LABS: BUN Creatinine Ratio 15.5 (10-20); Calcium 9.3 mg/dl (8.6-10.3); Creatinine Clr Calc Pharmacy 98.9 ml/min; Est GFR (African American) 96.3 ml/min; Est GFR (Non-African American) 83.1 ml/min; Magnesium 1.9 mg/dl (1.7-2.4); Potassium 3.8 mmol/L (3.5-5.1)
[2023-01-04] MEDS: ESCITALOPRAM OXALATE 10 MG TAB PO SCH (07:24)
[2023-01-04] MEDS: ATENOLOL 25 MG TABLET PO SCH ×2 (07:25→20:28)
[2023-01-04] MEDS: hydrOXYzine HCl 25 MG TAB PO PRN ×2 (07:26→20:28)
[2023-01-04] MEDS: FOLIC ACID 1 MG in SYRINGE 9.8 ML IV SCH (07:26)
[2023-01-04] MEDS: THIAMINE HCL 100 MG in SYRINGE 9 ML IV SCH (07:26)
[2023-01-04] MEDS: amLODIPine BESYLATE 5 MG TAB PO SCH (07:26)
[2023-01-04] MEDS: FLUTICASONE PROPIONATE NA SPR 16 GM BTL SCH (07:27)
[2023-01-04] MEDS ORDERED: MAGNESIUM SULFATE / D5W 1 GM/100 ML BAG IV ONE (07:46)
[2023-01-04] MEDS ORDERED: POTASSIUM CHLORIDE CRTAB 20 MEQ TABCR PO STA (07:46)
[2023-01-04] MEDS: LORazepam 2 MG in SYRINGE 1 ML IV PRN (11:18)
--- NOTE | 2023-01-04 14:55 | Hospitalist Progress Note ---
Date of Service January 04, 2023 Assessment & Plan (1) Alcohol intoxication: Plan: 52-year-old male with past medical significant for hypertension, PVCs, GERD, presents with altered mental status and alcohol intoxication. He is being managed for the following: Alcohol intoxication Toxic metabolic encephalopathy Impending alcohol withdrawal Patient presented obtunded and acutely intoxicated, appalled by history of presentation. Mental status resolved. Admitting CT head with no acute finding. Counseling done regarding alcohol cessation. CM to assist with rehab/resource Last alcoholic drink 12/31 evening. Continue with ABELARDO S protocol, thiamine, folic acid, Gabapentin taper. Pt wants OP rehab; today per pt, he plans to get OP appt w/ rehab facility. Hepatic asteatosis/: thought to be 2/2 MASLD (metabolic dysfunction) and alcohol related. Transaminitis: LFTs downtrending Established with [facility] Hepatology 11/28/2022. Prior US on 11/2022 BILE DUCTS: 7 mm left hepatic lobe cyst. The common bile duct measures 4 mm. Admitting liver ultrasound with hepatic steatosis, common bile duct measures 0.3 cm in diameter. Outpatient GI follow-up. Monitor LFT. Chronic medical conditions: Continue with/resume home meds as and when able Hypertension: Continue home amlodipine and atenolol Adjustment disorder: Continue Lexapro and hydroxyzine as needed Reported history of palpitation: Continue atenolol DVT prophylaxis: lovenox subcu Disposition: Telemetry floor. Full code Admission and Anticipated Discharge Date Admission Date: January 01, 2023 Subjective Patient was seen and examined at bedside. Patient was lying in bed, on RA, NAD, reports no new acute event overnight, reports eating okay and moving bowels okay. Patient w/ flushed face and feeling sweaty. Of note, Patient states that he drinks half bottle of vodka daily, last drink was 12/31 evening. Patient denies any headache or dizziness or chest pain or palpitation. Physical Exam Physical Exam: GENERAL: Alert and oriented x3. NAD, on RA. Face flushed appearance. HEENT: No pallor, no icterus. Pupils equal, round and reactive to light. Oral mucosa moist. NECK: No JVD, no neck masses. HEART: S1 and S2 heard. Regular rate and rhythm. Tachycardia. No murmur, no gallop. RESPIRATORY SYSTEM: Normal AP diameter. No accessory muscle use. No wheezing, no crackles. ABDOMEN: Soft, bowel sounds present, nontender, no distention. CENTRAL NERVOUS SYSTEM: No facial droop. Speech is clear. Obeys simple commands. Moves extremities. EXTREMITIES: No edema, no erythema seen. Results & Data Results & Data Vital Signs (Past 12 Hours) Vital Signs Temp Pulse Pulse Resp BP BP Pulse Ox 01/04/23 11:27 37.1 C 80 18 147/84 H 91 01/04/23 07:34 36.6 C 82 18 162/110 H 92 01/04/23 07:15 76 01/04/23 03:41 36.6 C 86 20 147/101 H 93 O2 Del Method 01/04/23 11:27 Room Air 01/04/23 07:34 Room Air 01/04/23 07:15 01/04/23 03:41 Room Air (1) Alcohol intoxication Complication of substance-induced condition: with unspecified complication Qualified Code(s): F10.929 - Alcohol use, unspecified with intoxication, unspecified
[2023-01-04] MEDS: ONDANSETRON INJ 2 MG/ML 2 ML VIAL IV PRN (18:24)
[2023-01-04] MEDS ORDERED: GABAPENTIN 600 MG TAB PO SCH (19:15)
[2023-01-04] MEDS ORDERED: ENOXAPARIN INJ 40 MG/0.4 ML SYR SQ SCH (21:00)
[2023-01-05 08:25] LABS: Albumin Level 4.1 gm/dl (3.4-5.0); Bilirubin Direct 0.4 mg/dl (0-0.2); Bilirubin,Total 1.2 mg/dl (0.2-1.0); Calcium 9.5 mg/dl (8.6-10.3); Potassium 3.9 mmol/L (3.5-5.1)
[2023-01-05] MEDS: FLUTICASONE PROPIONATE NA SPR 16 GM BTL SCH (08:29)
[2023-01-05] MEDS: ATENOLOL 25 MG TABLET PO SCH (08:30)
[2023-01-05] MEDS: amLODIPine BESYLATE 5 MG TAB PO SCH (08:30)
[2023-01-05 08:31] LABS: BUN Creatinine Ratio 21.9 (10-20); Creatinine Clr Calc Pharmacy 96.3 ml/min; Est GFR (African American) 94.1 ml/min; Est GFR (Non-African American) 81.2 ml/min; Phosphorus 4.4 mg/dl (2.5-4.9); Total Protein 6.9 gm/dl (6.0-8.3)
[2023-01-05] MEDS: hydrOXYzine HCl 25 MG TAB PO PRN (08:31)
[2023-01-05] MEDS: ESCITALOPRAM OXALATE 10 MG TAB PO SCH (08:31)
[2023-01-05] MEDS: THIAMINE HCL 100 MG in SYRINGE 9 ML IV SCH (08:31)
[2023-01-05] MEDS: FOLIC ACID 1 MG in SYRINGE 9.8 ML IV SCH (08:31)
--- NOTE | 2023-01-05 13:46 | Discharge Summary ---
Date of Service January 05, 2023 Admission HPI Per Admitting Provider 52-year-old male with past medical history significant for hypertension, PVCs, GERD, presents with altered mental status and alcohol intoxication. As per his he was drinking alcohol throughout the day today and has been drinking heavily since last 2 weeks. When the came home in the afternoon she could not able to wake her . The patient was not speaking. He appeared aphasic. EMS was called. This was some some concern of strokelike symptoms. Blood alcohol was 490. ER thought he was not a candidate for tPA because of his acute alcohol intoxication. Initial CT head is okay. Currently patient is more alert and awake. Can tell his name. Can tell his date of . Knows that he is in the hospital. Some confusion of the dates. His speech is somewhat pressured. states when he drinks alcohol he is speech is generally stuttering and is not unusual for him. Patient is able to obey simple commands for examination. He denies any headache. Denies chest pain. Denies abdominal pain. Denies nausea. Hemodynamically stable. Past medical history. As mentioned above Past surgical history. Left heart catheterization. EGD with biopsy. Naviculars fracture s/p surgery. Liver biopsy. Social history. . Snuff tobacco. Alcohol heavy drinking. No drug use. Family history. Father had MN at age 48. Paternal grandfather had MN in 50s. Maternal grandfather had MN in 40s. Admission Exam Per Admitting Provider General- Drowsy but arousable. Not in distress Head- atraumatic Eyes- PERRL. ENT- oropharynx clear Neck- supple, no JVD Lungs- clear to auscultation no wheezing or crackles. Heart- regular rhythm; no murmur, no gallop. Abdomen- normal bowel sounds, soft, nontender, no distension. Extremities- no pretibial edema, no erythema seen. Neuro- alert, oriented x 2; PERRL, no facial palsy;tounge midline.some stuttering speech; motor 5/5 bilaterally;no pronator drift, co ordniation of movements normal. sensations intact. Skin- warm & dry Principal Diagnosis Alcohol intoxication Toxic metabolic encephalopathy at presentation Impending alcohol withdrawal Transaminitis Discharge Exam GENERAL: Alert and oriented x3. NAD, on RA. HEENT: No pallor, no icterus. Pupils equal, round and reactive to light. Oral mucosa moist. NECK: No JVD, no neck masses. HEART: S1 and S2 heard. Regular rate and rhythm. No murmur, no gallop. RESPIRATORY SYSTEM: Normal AP diameter. No accessory muscle use. No wheezing, no crackles. ABDOMEN: Soft, bowel sounds present, nontender, no distention. CENTRAL NERVOUS SYSTEM: No facial droop. Speech is clear. Obeys simple comm ands. Moves extremities. EXTREMITIES: No edema, no erythema seen. Discharge Data Allergies Allergy/AdvReac Type Severity Reaction Status Date / Time No Known Allergies Allergy Mild Verified 08/10/19 13:03 Consultations 12/31/22 22:21 ED Decision to Admit Stat 01/03/23 14:45 Consult Behavioral Health Liaison Routine Ordered Studies 12/31/22 19:05 CT head/brain wo con Stat 12/31/22 21:44 CT chest diagnostic wo con Stat 01/01/23 07:25 US liver Routine Hospital Course (1) Alcohol intoxication: 52-year-old male with past medical significant for hypertension, PVCs, GERD, presents with altered mental status and alcohol intoxication. He was managed for the following: Alcohol intoxication Toxic metabolic encephalopathy Impending alcohol withdrawal Patient presented obtunded and acutely intoxicated, appalled by history of presentation. Mental status resolved. Admitting CT head with no acute finding. Counseling done regarding alcohol cessation. CM to assist with rehab/resource Last alcoholic drink 12/31 evening. s/p ABELARDO S protocol and gabapentin taper, c/w thiamine & folic acid Pt wants OP rehab; he plans to set himself up with OP rehab. LFT still elevated, once <2x ULN, likely can get naltrexone, pt advised to f/u w/ pcp for assessment. Hepatic asteatosis/: thought to be 2/2 MASLD (metabolic dysfunction) and alcohol related. Transaminitis: LFTs downtrending Established with [facility] [place] 11/28/2022. Prior US on 11/2022 BILE DUCTS: 7 mm left hepatic lobe cyst. The common bile duct measures 4 mm. Admitting liver ultrasound with hepatic steatosis, common bile duct measures 0.3 cm in diameter. Outpatient GI follow-up. Pt made aware. Monitor LFT. Chronic medical conditions: Continue with/resume home meds as and when able Hypertension: Continue home amlodipine and atenolol Adjustment disorder: Continue Lexapro and hydroxyzine as needed Reported history of palpitation: Continue atenolol DVT prophylaxis: lovenox subcu Disposition: Telemetry floor. Full code Patient is being discharged to home with following instruction at the point of discharge: Follow-up with your primary care physician within a week time and likely you will need labs CBC/CMP/magnesium/phosphorus. Recommend complete cessation of any consumption of any alcohol products. Recommend following up with/setting up appointment with alcoholic rehab facility. Your liver enzymes were elevated, once they start to trend down towards normal level, you might be able to be started on naltrexone to help with alcohol craving. Coordinate with your PCP office for ongoing assessment. Follow-up with the GI doctor in 2 to 4 weeks time upon discharge. Take your medications as prescribed. Please make sure that you are able to get your medications today by calling your pharmacy before you leave the hospital so that your treatment continuity is not broken. Home Health Attestation I certify that this patient is under my care and that I, or a physicians culinary assistant working with me, had a face to-face encounter that meets the home health [id number] encounter requirements with this patient. The encounter with the patient was in whole, or in part, for the following medical condition, which is the primary reason for home health care (list medical condition): I certify that, based on my findings, the following services are medically necessary home health services: My clinical findings support the need for the above services because: Further, I certify that my clinical findings support that this patient is homebound (i.e. absences from home require considerable and taxing effort and are for medical reasons or yazidi services or infrequently or of short duration when for other reasons) because: Certification for Home Health Services: Based on the above findings, I certify that this patient is confined to the home and needs intermittent jail care, physical therapy and/or speech therapy or continues to need occupational therapy. The patient is under my care, and I have initiated the establishment of the plan of care. This patient will be followed by a physician who will periodically review the plan of care. Total Time Total Time Spent Total Time Spent (In Minutes): 45 Discharge Plan Discharge Items Patient Disposition: Home - Self-Care Reason For Visit: UNRESPONSIVE, ALCOHOL INTOXICATION Discharge Diagnosis: Alcohol intoxication Toxic metabolic encephalopathy at presentation Impending alcohol withdrawal Transaminitis Activity: Resume your previous activity Non-emergency contact: Primary Care Provider Call non-emergency contact if: you have any medication questions, your symptoms worsen and your temperature is above 101 Follow-up/Referrals: Vida Hernandez, [Primary Care Provider] - Diet: Heart Healthy Addtl Attending Provider Instructions: Follow-up with your primary care physician within a week time and likely you will need labs CBC/CMP/magnesium/phosphorus. Recommend complete cessation of any consumption of any alcohol products. Recommend following up with/setting up appointment with alcoholic rehab facility. Your liver enzymes were elevated, once they start to trend down towards normal level, you might be able to be started on naltrexone to help with alcohol craving. Coordinate with your PCP office for ongoing assessment. Follow-up with the GI doctor in 2 to 4 weeks time upon discharge. Take your medications as prescribed. Please make sure that you are able to get your medications today by calling your pharmacy before you leave the hospital so that your treatment continuity is not broken. Pending Studies at Discharge: No Stand-Alone Forms: My [facility], Smoking Cessation Medications and DC Order Prescriptions: New folic acid 1 mg tablet 1,000 mcg PO DAILY Qty: 30 0RF thiamine HCl (vitamin B1) 100 mg tablet 100 mg PO DAILY Qty: 30 0RF Continued atenolol 25 mg tablet 25 mg PO QAM amlodipine 10 mg tablet 10 mg PO QAM hydroxyzine HCl 25 mg tablet 25 mg PO Q6 PRN (Reason: Anxiety) escitalopram oxalate 10 mg tablet 10 mg PO QAM Discharge Orders: Discharge Order (Routine); Ordered 01/05/23 Ordered By: Frantz Avery/Other Patient Handouts: Your Body's Response to Anxiety, Eating Heart- Healthy Foods Admission Data Admit Date/Time: 01/01/23 00:59 Attending Provider: Frantz Shipman Admit Provider: Wilber Black Primary Care Provider: Vida Hernandez Other Providers: Wilber Black Other Interventions: Discharge Summary Assessment (RN) Last Done: 01/05/23 12:24
== END 2023-01-05 17:25 | disposition home or self-care (01) | DRG 896 ==
LOC: ED 18:52 → SUATTDRO 01-01 00:59 → 2E 01-01 00:59

== ENCOUNTER 2024-10-25 19:18 | Observation (INO) ==
[2024-10-25 20:20] LABS: Base Excess VBG 3.5 mEq/L; HCO3 VBG 29 mmol/L; Oxygen Saturation VBG 71.2 %; PCO2 VBG 47 mmHg (38-50); PO2 VBG 45 mmHg; pH VBG 7.40 (7.36-7.41)
[2024-10-25 20:24] LABS: Hematocrit (blood only) 43.6 % (42.0-52.0); Hemoglobin 15.6 g/dl (14.0-18.0); Immature Granulocytes # (auto) 0.02 K/uL (0.01-0.20); Immature Granulocytes % (auto) 0.3 %; Mean Corpuscular Hemoglobin 33.1 pg (25.0-34.0); Mean Corpuscular Volume 92.6 fL (80.0-100.0); Platelet Count 317 K/uL (130-400); RDW Standard Deviation 49.0 fL (36.4-46.3); Red Blood Count 4.71 M/uL (4.70-6.10); White Blood Count 7.69 K/ul (4.8-10.8)
[2024-10-25] MEDS: SODIUM CHLORIDE 0.9% 1,000 ML IV SCH (20:30)
[2024-10-25] MEDS: MULTIVITAMIN TAB PO ONE (20:31)
[2024-10-25] MEDS: FOLIC ACID 1 MG TAB PO ONE (20:31)
[2024-10-25 20:43] LABS: Alanine Aminotransferase 55 U/L (7-52); Albumin Globulin Ratio 1.2 (0.9-2); Alkaline Phosphatase 94 U/L (34-104); Anion Gap 16 (3-11); Bilirubin,Total 0.7 mg/dl (0.2-1.0); Blood Urea Nitrogen 9 mg/dl (6-23); Calcium 8.9 mg/dl (8.6-10.3); Carbon Dioxide 27 mmol/L (21-32); Chloride 96 mmol/L (98-107); Globulin 3.4 gm/dl (2.5-4.0); Glucose 151 mg/dl (70-99(Fasting)); Lipase 24 U/L (11-82); Potassium 3.3 mmol/L (3.5-5.1); Sodium 139 mmol/L (136-145); Total Protein 7.6 gm/dl (6.0-8.3)
[2024-10-25] MEDS: THIAMINE HCL 500 MG in SODIUM CHLORIDE 0.9% 50 ML IV STA (20:54)
[2024-10-25] MEDS: SODIUM CHLORIDE 0.9% 1,000 ML IV ONE (21:00)
--- NOTE | 2024-10-25 21:09 | Emergency Department Note ---
Impression & Plan Acute alcohol intoxication with alcoholism with delirium, Acute hypokalemia, Acute encephalopathy, Elevated lactic acid level, Acute hypoxic respiratory failure ED Provider Note NAME: CORDELL RIOS AGE: 54 SEX: M : 1970 ARRIVES VIA: Walk-In INFORMANT: Patient, his ED PROVIDER(S): Alvin Mathews DO CHIEF COMPLAINT: AMS HPI: This is a 54-year-old male with the PMHx of HTN and alcohol use disorder presenting to [facility] for further evaluation of AMS. Patient is accompanied by his who provide additional history. history is mostly provided by the patient's at the bedside. She reports the patient has significant alcohol use disorder and he is currently intoxicated. She states throughout the weekend he has been severely altered and not acting himself. While she acknowledges that he has been drinking, she notes that she has a breathalyzer at home and his ethanol levels have been relatively low. She is concerned that something else is going on. She states that she has seen him severely intoxicated like this in the past. She notes that he does stutter and slur his words when intoxicated. She notes that he seems paranoid and behaving extremely oddly even for being intoxicated. She states that he normally does not act this way. The patient is irritated with being in the hospital and states he does not want to go to rehab. They deny fever or chills. No cough or congestion. Denies chest pain or palpitations. No shortness of breath. They deny abdominal pain, nausea and vomiting. No urinary complaints. No recent changes in bowel movements. Patient denies recent changes in medications or OTC supplements. Patient offers no other complaints, today. ADDITIONAL HISTORY OBTAINED: Per HPI Chronic Medical/Social Conditions Affecting Care: Per HPI PAST MEDICAL HISTORY: See Below PAST SURGICAL HISTORY: See Below FAMILY HISTORY: See Below SOCIAL HISTORY: See Below HOME MEDICATIONS: See Below ALLERGIES: See Below VITALS: See Below PHYSICAL EXAMINATION: GENERAL: Sitting up in bed, alert, well appearing, well nourished, no distress, non-toxic EYE EXAM: normal conjunctiva. PERRL and EOM's grossly intact. OROPHARYNX: no exudate, no erythema, lips, buccal mucosa, and tongue normal and mucous membranes are moist NECK: supple, no nuchal rigidity, no adenopathy, non-tender LUNGS: Clear to auscultation. Normal chest wall mechanics HEART: no murmurs, regular rate, regular rhythm ABDOMEN: abdomen soft, non-tender, no masses, no rebound or guarding. BACK: Back is symmetrical on inspection and there is no deformity, no midline tenderness, no CVA tenderness. SKIN: no rashes and no bruising UPPER EXTREMITIES: upper extremities are grossly normal. LOWER EXTREMITIES: No pitting edema. NEURO EXAM: the patient is altered and inattentive. He is constantly looking around the room. He is paranoid with regards to sounds of the room as well as other individuals talking. The patient cannot make significant eye contact. GCS 15, Dysarthria and trouble word finding present, no gross weakness of arms, no gross weakness of legs. No drift. Finger to nose intact. Gross sensation intact. MEDICAL DECISION MAKING: Differential diagnoses includes but not limited to acute alcohol intoxication, CVA, intracranial hemorrhage, hydrocephalus, Warnicke's encephalopathy, vitamin deficiencies, electrolyte derangements, dehydration In summary, this is a 54 year old male who presented with altered mental status. Differential as above. Nursing notes and pertinent past medical records reviewed. Vital signs reviewed and the patient is hypoxic but otherwise afebrile and hemodynamically stable. Patient appears in no acute respiratory distress. History and presentation revealed while I do feel the patient's symptoms today are likely related to acute alcohol intoxication. It is difficult to rule out other etiologies including intracranial abnormalities. Would also consider Warnicke's encephalopathy. Physical examination revealed no significant stroke deficits but does have significant dysarthria, altered mentation and trouble word finding. As a result of my initial evaluation, we will plan for CTA imaging of the head and neck as well as basic labs and a chest x-ray. Diagnostics interpreted by me include cardiac monitoring as listed below: -Cardiac Monitoring: An order was placed for continuous cardiac monitoring. The monitor shows a rate of 70-90s with regular rhythm. Patient completed laboratory studies and imaging. CXR independently interpreted by me reveals no evidence of focal consolidation to suggest pna. No large pneumothorax or pleural effusion. Results independently interpreted by me are no significant anemia or leukocytosis. INR is normal. VBG is normal. Does have mild hypokalemia. Mild anion gap present likely secondary to ethanol use. Could also be from his elevated lactate at 3.9. Mild hyperglycemia noted. AST and ALT are mildly elevated. Troponin is normal. Patient's lipase is normal. Urinalysis is negative. Ethanol is significantly elevated at 446.5. The patient was managed initially with IV fluid resuscitation as well as high-dose thiamine. Patient was given additional IV fluid resuscitation. The patient was extremely anxious and slightly agitated throughout his course. He is significantly paranoid. He was given 2 doses of Ativan for improvement. CTH independently interpreted by me reveals no evidence of ICH. No significant hydrocephalus. No major skull fractures. CTH does not demonstrate findings to suggest an etiology of the patient's symptoms or presentation, today. CTA imaging was independently interpreted by me is negative for acute stroke. Unclear etiology of his altered mental status but would consider additional diagnoses as his symptoms are likely masked by the presence of significant alcohol intoxication. In regards to the patient's acute hypoxic respiratory failure, I do feel this is likely related to his intoxication but the patient is wide-awake and speaking with me while hypoxic. He was placed on low-flow nasal cannula with improvement. Chest x-ray and VBG are largely unremarkable. The patient may need further workup or advanced imaging as an inpatient. Patient has an extremely high risk for withdrawal in the coming hours. Patient will need to be closely monitored on [facility] protocol. Ultimately, the decision was made to admit the patient for Acute alcohol intoxication with hyperactive delirium, lactic acidosis, LFT changes, hypokalemia, and acute hypoxic respiratory failure. I discussed the case with the hospitalist service via telephone/Tiger[employer] and they are agreeable to admit the patient to their services by Dr. Troncoso. Based on the above, including the patient's age, coexisting illnesses, labs, imaging, and exam findings the decision to treat as an inpatient. I discussed the patient with the hospitalist team who recommended admission to their services. They received the medications, treatments, interventions indicated above and their condition remained guarded. I discussed my findings with the patient and their family and they understand and agree with the treatment plan. All patient / family questions were answered to their satisfaction. Consults/Care Managements Discussions: Per MDM ER treatment provided: See above Procedures:none Critical Care: I have personally spent 37 minutes of critical care time in direct management of this patient. This includes bedside care, interpretation of diagnostic studies, and testing, discussion with consultants, patient, and family members, and other require inpatient management activities. This 37 minutes is in excess of all separately billable procedures. The chart was completed utilizing [employer] Speech voice recognition software. Grammatical errors, random word insertions, pronoun errors, and incomplete sentences are an occasional consequence of this system due to software limitations, ambient noise, and hardware issues. Any formal questions or concerns about the content, text, or information contained within the body of this dictation should be directly addressed to the physician for clarification. Past Med/Surg History Problem List (Updated 10/26/24 @ 03:09 by Alvin Mathews DO) Acute hypoxic respiratory failure (Acute) Elevated lactic acid level (Acute) Acute encephalopathy (Acute) Acute hypokalemia (Acute) Acute alcohol intoxication with alcoholism with delirium (Acute) Acute alteration in mental status (Acute) Alcohol intoxication (Acute) Hypertension Medical History Hypomagnesemia Alcohol abuse Transient vision disturbance of right eye Social History Smoking Status: Never smoker Tobacco Type: Cigarettes Hx Alcohol Use: Yes Alcohol type: beer and hard liquor Hx Substance Use: No Preferred Language: Divehi Communication Ability: Effective 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: No Beliefs That Will Affect Care: None marital status: Current Living Situation: Spouse and Family current occupational status: employed Feels Safe at Home: Yes Assistive Devices: None Allergies Allergies Allergy/AdvReac Type Severity Reaction Status Date / Time No Known Allergies Allergy Mild Verified 04/23/24 10:36 Home Meds Home Medications Medication Instructions Recorded Confirmed amlodipine 10 mg tablet 10 mg PO QAM 12/31/22 10/25/24 atenolol 25 mg tablet 25 mg PO QAM 12/31/22 10/25/24 disulfiram 250 mg tablet 250 mg PO QAM 10/25/24 10/25/24 escitalopram oxalate 10 mg tablet 10 mg PO DAILY 10/25/24 10/25/24 folic acid 1 mg tablet 1 mg PO DAILY 10/25/24 10/25/24 hydroxyzine HCl 25 mg tablet 25 mg PO Q6 PRN Anxiety 10/25/24 10/25/24 Results & Data (ED) Vital Signs Vital Signs - 24 hr 10/25/24 19:24 10/25/24 19:33 10/25/24 20:06 Temperature 36.5 C Temperature Source Oral Pulse Rate 81 74 Pulse Rate [Left Apical] 74 Respiratory Rate 18 16 Respiratory Effort / Characteristics Non-Labored Spontaneous Non-Labored Spontaneous Respiratory Depth Normal Normal Respiratory Pattern Regular Regular Blood Pressure 125/78 Blood Pressure [Right Arm] 120/85 Blood Pressure Mean 93 Blood Pressure Mean [Right Arm] 96 Blood Pressure Position Sitting Pulse Oximetry 95 92 Oxygen Delivery Method Room Air Room Air Oxygen Flow Rate Sepsis Recent Fever Within 48 Hours No Sepsis New/Unexplained Change in Mental Status N/A Sepsis Action Taken by Nursing No Action Required Oxygen Flow Rate - Titration Pulse Oximetry Post Tiitration 10/25/24 20:10 10/25/24 20:56 10/25/24 21:23 Temperature 37.1 C Temperature Source Oral Pulse Rate 83 Pulse Rate [Left Apical] 77 Respiratory Rate 19 20 Respiratory Effort / Characteristics Non-Labored Spontaneous Respiratory Depth Normal Respiratory Pattern Regular Blood Pressure 137/91 Blood Pressure [Right Arm] 130/89 Blood Pressure Mean 112 Blood Pressure Mean [Right Arm] 102 Blood Pressure Position Pulse Oximetry 87 L 92 93 Oxygen Delivery Method Nasal Cannula Nasal Cannula Nasal Cannula Oxygen Flow Rate 0 2 2 Sepsis Recent Fever Within 48 Hours Sepsis New/Unexplained Change in Mental Status Sepsis Action Taken by Nursing Oxygen Flow Rate - Titration 2 Pulse Oximetry Post Tiitration 94 10/25/24 21:27 10/25/24 21:30 10/25/24 22:30 Temperature Temperature Source Pulse Rate 76 84 Pulse Rate [Left Apical] Respiratory Rate 22 20 Respiratory Effort / Characteristics Respiratory Depth Respiratory Pattern Blood Pressure 134/86 140/92 Blood Pressure [Right Arm] Blood Pressure Mean 92 105 Blood Pressure Mean [Right Arm] Blood Pressure Position Pulse Oximetry 95 96 94 Oxygen Delivery Method Room Air Nasal Cannula Nasal Cannula Oxygen Flow Rate 2 2 Sepsis Recent Fever Within 48 Hours Sepsis New/Unexplained Change in Mental Status Sepsis Action Taken by Nursing Oxygen Flow Rate - Titration Pulse Oximetry Post Tiitration 10/25/24 23:00 10/25/24 23:30 10/26/24 00:00 Temperature Temperature Source Pulse Rate 89 88 82 Pulse Rate [Left Apical] Respiratory Rate 24 16 20 Respiratory Effort / Characteristics Respiratory Depth Respiratory Pattern Blood Pressure 143/95 H 146/88 H 150/95 H Blood Pressure [Right Arm] Blood Pressure Mean 120 102 108 Blood Pressure Mean [Right Arm] Blood Pressure Position Pulse Oximetry 92 95 94 Oxygen Delivery Method Oxygen Flow Rate Sepsis Recent Fever Within 48 Hours Sepsis New/Unexplained Change in Mental Status Sepsis Action Taken by Nursing Oxygen Flow Rate - Titration Pulse Oximetry Post Tiitration Laboratory Data 10/25/24 19:58 10/25/24 19:58 Lab Results 10/25/24 10/25/24 10/26/24 Range/Units 19:58 21:25 00:15 WBC 7.69 (4.8-10.8) K/ul RBC 4.71 (4.70-6.10) M/uL Hgb 15.6 (14.0-18.0) g/dl Hct 43.6 (42.0-52.0) % MCV 92.6 (80.0-100.0) fL MCH 33.1 (25.0-34.0) pg MCHC 35.8 (32.0-36.0) g/dL RDW Std Deviation 49.0 H (36.4-46.3) fL RDW Coeff of Abel 14.3 (11.5-14.5) % Plt Count 317 (130-400) K/uL MPV 8.6 L (9.4-12.4) fL Immature Gran % (Auto) 0.3 % Neut % (Auto) 56.3 % Lymph % (Auto) 33.7 % Morton % (Auto) 7.7 % Eos % (Auto) 0.3 % Baso % (Auto) 1.7 % Neut # (Auto) 4.34 (1.40-6.50) K/uL Lymph # (Auto) 2.59 (1.20-3.40) K/uL Morton # (Auto) 0.59 (0.11-0.59) K/uL Eos # (Auto) 0.02 (0.00-0.50) K/uL Baso # (Auto) 0.13 (0.00-0.20) K/uL Immature Gran # (Auto) 0.02 (0.01-0.20) K/uL PT 10.9 (9.0-12.0) Seconds INR 1.0 (0.9-1.1) VBG pH 7.40 (7.36-7.41) VBG pCO2 47 (38-50) mmHg VBG pO2 45 mmHg VBG HCO3 29 mmol/L VBG O2 Saturation 71.2 % VBG Base Excess 3.5 mEq/L Sodium 139 (136-145) mmol/L Potassium 3.3 L (3.5-5.1) mmol/L Chloride 96 L (98-107) mmol/L Carbon Dioxide 27 (21-32) mmol/L Anion Gap 16 H (3-11) BUN 9 (6-23) mg/dl Creatinine 0.99 (0.6-1.4) mg/dl Est Cr Clr Drug Dosing Not Reportable eGFR 90.52 BUN/Creatinine Ratio 9.1 L (10-20) Glucose 151 H (70-99(Fasting)) mg/dl POC Glucose 99 (70-99) mg/dl Lactate 3.9 H* (0.4-2.0) mmol/L Calcium 8.9 (8.6-10.3) mg/dl Magnesium 2.0 (1.7-2.4) mg/dl Total Bilirubin 0.7 (0.2-1.0) mg/dl AST 55 H (13-39) U/L ALT 55 H (7-52) U/L Alkaline Phosphatase 94 (34-104) U/L Troponin I High Sens 9.4 (0-20) pg/ml Total Protein 7.6 (6.0-8.3) gm/dl Albumin 4.2 (3.4-5.0) gm/dl Globulin 3.4 (2.5-4.0) gm/dl Albumin/Globulin Ratio 1.2 (0.9-2) Lipase 24 (11-82) U/L Urine Color Yellow Urine Appearance Clear (Clear) Urine pH 6.5 (4.5-7.5) Ur Specific [place] 1.004 (1.000-1.030) Urine Protein Negative (Negative) Urine Glucose (UA) Negative (Negative) Urine Ketones Negative (Negative) Urine Blood Negative (Negative) Urine Nitrite Negative (Negative) Urine Bilirubin Negative (Negative) Urine Urobilinogen Negative (Negative) Ur Leukocyte Esterase Negative (Negative) Urine Comment Urine Opiates Screen Neg (Neg) Ur Methadone, Qual Neg (Neg) Urine Fentanyl Screen Neg (Neg) Urine Barbiturates Neg (Neg) Ur Phencyclidine (PCP) Neg (Neg) U Amphetamin/Meth Scrn Neg (Neg) MDMA (Ecstasy) Screen Neg (Neg) U Benzodiazepines Scrn Neg (Neg) Ur Cocaine Metabolite Neg (Neg) U Marijuana (THC) Screen Neg (Neg) Ethyl Alcohol mg/dL 446.5 H (<10.0) mg/dl Administered Medications Potassium Chloride 20 meq/ (Lactated Ringer's) 1,010 mls @ 100 mls/hr IV .Q10H6M ONE Stop: 10/26/24 10:15 Last Admin: 10/26/24 00:38 Dose: 100 mls/hr Documented By: MARK Discontinued Medications Folic Acid (Folic Acid 1 Mg Tab) 1 mg PO NOW ONE Stop: 10/25/24 19:46 Last Admin: 10/25/24 20:31 Dose: 1 mg Documented By: MAYA Sodium Chloride (Nss) 1,000 mls @ 999 mls/hr IV .Q1H1M ALVARO Stop: 10/25/24 20:47 Last Infusion: 10/25/24 21:47 Dose: Infused Documented By: Admin: 10/25/24 20:30 Dose: 999 mls/hr Documented By: MAYA Thiamine HCl 500 mg/ Sodium (Chloride) 55 mls @ 210 mls/hr IV NOW STA Stop: 10/25/24 20:00 Last Infusion: 10/25/24 21:47 Dose: Infused Documented By: Admin: 10/25/24 20:54 Dose: 210 mls/hr Documented By: MAYA Sodium Chloride (Nss) 1,000 mls @ 999 mls/hr IV .Q1H1M ONE Stop: 10/25/24 21:54 Last Infusion: 10/25/24 22:20 Dose: Infused Documented By: [facility] Admin: 10/25/24 21:00 Dose: 999 mls/hr Documented By: MAYA Ioversol (Optiray 320 125ml) 115 ml IV ONCE ONE Stop: 10/25/24 22:01 Last Admin: 10/25/24 22:00 Dose: 115 ml Documented By: CINDI Lorazepam (Lorazepam 1 Mg Tab) 1 mg SL NOW STA Stop: 10/25/24 21:10 Last Admin: 10/25/24 21:24 Dose: 1 mg Documented By: MAYA Lorazepam (Lorazepam 1 Mg Tab) 1 mg SL NOW STA Stop: 10/25/24 21:54 Last Admin: 10/25/24 22:12 Dose: 1 mg Documented By: MARK Multivitamins (Multivitamin Tab) 1 tab PO NOW ONE Stop: 10/25/24 19:46 Last Admin: 10/25/24 20:31 Dose: 1 tab Documented By: MAYA Phenobarbital Sodium (Phenobarbital Sodium 130 Mg/Ml Vial) 130 mg IM NOW STA Stop: 10/26/24 00:42 Last Admin: 10/26/24 01:06 Dose: Not Given Documented By: DILLON Potassium Chloride (Potassium Chloride Crtab 20 Meq Tabcr) 40 meq PO NOW STA Stop: 10/26/24 00:08 Last Admin: 10/26/24 00:13 Dose: 40 meq Documented By: DILLON Imaging Data Radiologist's Impression: Chest X-Ray 10/25/24 19:45 Exam(s): XR CXR 2 VIEWS EXAM: XR Chest, 2 Views CLINICAL HISTORY: Reason for exam: hypoxia. TECHNIQUE: Frontal and lateral views of the chest. COMPARISON: 04/23/2024 FINDINGS: Lungs: Low lung volumes appears unchanged. No consolidation. No overt edema. Pleural space: No pleural effusion. No pneumothorax. Heart: Unremarkable. No cardiomegaly. Bones/joints: Unremarkable. No fracture or malalignment. IMPRESSION: No acute cardiopulmonary abnormality. Electronically signed by: Terry Alford MD 10/25/24 22:[address] 10/25/24 19:45 Exam(s): CT HEAD Without Contrast EXAM: CT Head Without Intravenous Contrast CLINICAL HISTORY: eval for stroke. TECHNIQUE: Axial computed tomography images of the head/brain without intravenous contrast. CTDI is 37 mGy and DLP is 624 mGy-cm. Automated exposure control was utilized for the study. A dose lowering technique was utilized adhering to the principles of ALARA. COMPARISON: 12/31/2022. FINDINGS: Brain: Ventricles and sulci are normal in size and configuration for age. No acute stroke. No acute hemorrhage. No abnormal extra-axial fluid collection. Ventricles: No hydrocephalus. No midline shift. Bones/joints: Unremarkable. No acute fracture. Soft tissues: Unremarkable. Sinuses: Unremarkable as visualized. No acute sinusitis. IMPRESSION: No acute abnormality. Electronically signed by: Oswald Ybarra M.D. 10/25/24 23:21 PM Head CTA 10/25/24 19:45 Exam(s): CTA HEAD With Contrast IV Amt: 115 ml optiray 320 EXAM: CT Angiography Head With Intravenous Contrast CLINICAL HISTORY: AMS, dysarthria. TECHNIQUE: Axial computed tomographic angiography images of the head with intravenous contrast. CTDI is 37 mGy and DLP is 624 mGy-cm. Automated exposure control was utilized for the study. A dose lowering technique was utilized adhering to the principles of ALARA. 3D and MIP reconstructed images were created and reviewed. CONTRAST: Patient received 115 ml optiray 320 of IV contrast COMPARISON: CT Brain 10-25-2024. FINDINGS: Right internal carotid artery: No acute abnormality. Intracranial segment is patent with no significant stenosis. No aneurysm. Right anterior cerebral artery: Unremarkable. No occlusion or significant stenosis. No aneurysm. Right middle cerebral artery: Unremarkable. No occlusion or significant stenosis. No aneurysm. Right posterior cerebral artery: Unremarkable. No occlusion or significant stenosis. No aneurysm. Right vertebral artery: Unremarkable as visualized. Left internal carotid artery: No acute abnormality. Intracranial segment is patent with no significant stenosis. No aneurysm. Left anterior cerebral artery: Unremarkable. No occlusion or significant stenosis. No aneurysm. Left middle cerebral artery: Unremarkable. No occlusion or significant stenosis. No aneurysm. Left posterior cerebral artery: Unremarkable. No occlusion or significant stenosis. No aneurysm. Left vertebral artery: Unremarkable as visualized. Basilar artery: Unremarkable. No occlusion or significant stenosis. No aneurysm. IMPRESSION: No large vessel occlusion. Electronically signed by: Oswald Ybarra M.D. 10/25/24 23:29 PM Neck CTA 10/25/24 19:45 Exam(s): CTA NECK With Contrast IV Amt: 115 ml optiray 320 EXAM: CT Angiography Neck With Intravenous Contrast CLINICAL HISTORY: ams, dysarthria. TECHNIQUE: Routine carotid CT angiography protocol was performed with intravenous contrast. NASCET criteria using the distal ICAs for comparison were used for evaluation of stenoses. CTDI is 37 mGy and DLP is 624 mGy-cm. Automated exposure control was utilized for the study. A dose lowering technique was utilized adhering to the principles of ALARA. 3D and MIP reconstructed images were created and reviewed. CONTRAST: Patient received 115 ml optiray 320 of IV contrast COMPARISON: None. FINDINGS: VASCULATURE: Right common carotid artery: Unremarkable. No occlusion or significant stenosis. No dissection. Right internal carotid artery: Mild calcified plaque at the carotid bulb without a hemodynamically significant stenosis. No dissection. Right external carotid artery: Unremarkable. No occlusion. Right vertebral artery: Unremarkable. No occlusion or significant stenosis. No dissection. Left common carotid artery: Unremarkable. No occlusion or significant stenosis. No dissection. Left internal carotid artery: Mild calcified plaque at the carotid bulb without a hemodynamically significant stenosis. No dissection. Left external carotid artery: Unremarkable. No occlusion. Left vertebral artery: Unremarkable. No occlusion or significant stenosis. No dissection. NECK: Bones/joints: Mild degenerative changes of the spine. No acute fracture. Soft tissues: Unremarkable. Lung apices: Clear. CAROTID STENOSIS REFERENCE USING NASCET CRITERIA: % ICA stenosis = (1 - narrowest ICA diameter/diameter of distal cervical ICA) x 100. Mild - <50% stenosis. Moderate - 50-69% stenosis. Severe - 70-94% stenosis. Near occlusion - 95-99% stenosis. Occluded - 100% stenosis. IMPRESSION: Mild calcified plaque at the bilateral carotid bulbs without a hemodynamically significant stenosis. Electronically signed by: Oswald Ybarra M.D. 10/25/24 23:37 PM Discharge Plan Visit Data Chief Complaint: Detox Request Stated Complaint: [employer] ED Provider: Alvin Mathews Discharge Problem: Acute alcohol intoxication with alcoholism with delirium, Acute hypokalemia, Acute encephalopathy, Elevated lactic acid level, Acute hypoxic respiratory failure Patient Disposition: Admitted As Inpatient Condition: Serious Discharge Instructions Interventions: ED Discharge Assessment Last Done: 10/26/24 01:12
[2024-10-25] MEDS: LORazepam 1 MG TAB SL STA ×2 (21:24→22:12)
[2024-10-25] MEDS: OPTIRAY 320 125ml IV ONE (22:00)
--- NOTE | 2024-10-25 22:19 | XRay Report ---
Exam(s): XR CXR 2 VIEWS EXAM: XR Chest, 2 Views CLINICAL HISTORY: Reason for exam: hypoxia. TECHNIQUE: Frontal and lateral views of the chest. COMPARISON: 04/23/2024 FINDINGS: Lungs: Low lung volumes appears unchanged. No consolidation. No overt edema. Pleural space: No pleural effusion. No pneumothorax. Heart: Unremarkable. No cardiomegaly. Bones/joints: Unremarkable. No fracture or malalignment. IMPRESSION: No acute cardiopulmonary abnormality. Electronically signed by: Terry Alford MD 10/25/24 22:18 PM
--- NOTE | 2024-10-25 23:22 | CT Scan Report ---
Exam(s): CT HEAD Without Contrast EXAM: CT Head Without Intravenous Contrast CLINICAL HISTORY: eval for stroke. TECHNIQUE: Axial computed tomography images of the head/brain without intravenous contrast. CTDI is 37 mGy and DLP is 624 mGy-cm. Automated exposure control was utilized for the study. A dose lowering technique was utilized adhering to the principles of ALARA. COMPARISON: 12/31/2022. FINDINGS: Brain: Ventricles and sulci are normal in size and configuration for age. No acute stroke. No acute hemorrhage. No abnormal extra-axial fluid collection. Ventricles: No hydrocephalus. No midline shift. Bones/joints: Unremarkable. No acute fracture. Soft tissues: Unremarkable. Sinuses: Unremarkable as visualized. No acute sinusitis. IMPRESSION: No acute abnormality. Electronically signed by: Oswald Ybarra M.D. 10/25/24 23:21 PM
--- NOTE | 2024-10-25 23:30 | CT Scan Report ---
Exam(s): CTA HEAD With Contrast IV Amt: 115 ml optiray 320 EXAM: CT Angiography Head With Intravenous Contrast CLINICAL HISTORY: AMS, dysarthria. TECHNIQUE: Axial computed tomographic angiography images of the head with intravenous contrast. CTDI is 37 mGy and DLP is 624 mGy-cm. Automated exposure control was utilized for the study. A dose lowering technique was utilized adhering to the principles of ALARA. 3D and MIP reconstructed images were created and reviewed. CONTRAST: Patient received 115 ml optiray 320 of IV contrast COMPARISON: CT Brain 10-25-2024. FINDINGS: Right internal carotid artery: No acute abnormality. Intracranial segment is patent with no significant stenosis. No aneurysm. Right anterior cerebral artery: Unremarkable. No occlusion or significant stenosis. No aneurysm. Right middle cerebral artery: Unremarkable. No occlusion or significant stenosis. No aneurysm. Right posterior cerebral artery: Unremarkable. No occlusion or significant stenosis. No aneurysm. Right vertebral artery: Unremarkable as visualized. Left internal carotid artery: No acute abnormality. Intracranial segment is patent with no significant stenosis. No aneurysm. Left anterior cerebral artery: Unremarkable. No occlusion or significant stenosis. No aneurysm. Left middle cerebral artery: Unremarkable. No occlusion or significant stenosis. No aneurysm. Left posterior cerebral artery: Unremarkable. No occlusion or significant stenosis. No aneurysm. Left vertebral artery: Unremarkable as visualized. Basilar artery: Unremarkable. No occlusion or significant stenosis. No aneurysm. IMPRESSION: No large vessel occlusion. Electronically signed by: Oswald Ybarra M.D. 10/25/24 23:29 PM
--- NOTE | 2024-10-25 23:38 | CT Scan Report ---
Exam(s): CTA NECK With Contrast IV Amt: 115 ml optiray 320 EXAM: CT Angiography Neck With Intravenous Contrast CLINICAL HISTORY: ams, dysarthria. TECHNIQUE: Routine carotid CT angiography protocol was performed with intravenous contrast. NASCET criteria using the distal ICAs for comparison were used for evaluation of stenoses. CTDI is 37 mGy and DLP is 624 mGy-cm. Automated exposure control was utilized for the study. A dose lowering technique was utilized adhering to the principles of ALARA. 3D and MIP reconstructed images were created and reviewed. CONTRAST: Patient received 115 ml optiray 320 of IV contrast COMPARISON: None. FINDINGS: VASCULATURE: Right common carotid artery: Unremarkable. No occlusion or significant stenosis. No dissection. Right internal carotid artery: Mild calcified plaque at the carotid bulb without a hemodynamically significant stenosis. No dissection. Right external carotid artery: Unremarkable. No occlusion. Right vertebral artery: Unremarkable. No occlusion or significant stenosis. No dissection. Left common carotid artery: Unremarkable. No occlusion or significant stenosis. No dissection. Left internal carotid artery: Mild calcified plaque at the carotid bulb without a hemodynamically significant stenosis. No dissection. Left external carotid artery: Unremarkable. No occlusion. Left vertebral artery: Unremarkable. No occlusion or significant stenosis. No dissection. NECK: Bones/joints: Mild degenerative changes of the spine. No acute fracture. Soft tissues: Unremarkable. Lung apices: Clear. CAROTID STENOSIS REFERENCE USING NASCET CRITERIA: % ICA stenosis = (1 - narrowest ICA diameter/diameter of distal cervical ICA) x 100. Mild - <50% stenosis. Moderate - 50-69% stenosis. Severe - 70-94% stenosis. Near occlusion - 95-99% stenosis. Occluded - 100% stenosis. IMPRESSION: Mild calcified plaque at the bilateral carotid bulbs without a hemodynamically significant stenosis. Electronically signed by: Oswald Ybarra M.D. 10/25/24 23:37 PM
[2024-10-26] MEDS: POTASSIUM CHLORIDE CRTAB 20 MEQ TABCR PO STA (00:13)
[2024-10-26 00:25] LABS: Appearance Urine Clear (Clear); Glucose Urine UA Negative (Negative)
[2024-10-26 00:38] LABS: INR 1.0 (0.9-1.1); Prothrombin Time 10.9 Seconds (9.0-12.0)
[2024-10-26] MEDS: POTASSIUM CHLORIDE 20 MEQ in LACTATED RINGER'S 1,000 ML IV ONE (00:38)
[2024-10-26] MEDS ORDERED: PHENobarbital PO Alcohol Withdrawal PO STA (00:41)
[2024-10-26 00:42] LABS: Magnesium 2.0 mg/dl (1.7-2.4)
[2024-10-26] MEDS ORDERED: ACETAMINOPHEN 500 MG TAB PO PRN (00:48)
[2024-10-26 00:53] LABS: Amphetamines+Metham, Urine Neg (Neg); MDMA (Ecstacy), Urine Neg (Neg); Marijuana, Urine Neg (Neg)
--- NOTE | 2024-10-26 02:10 | History & Physical Report ---
Date of Service October 26, 2024 Assessment & Plan (1) Alcohol withdrawal: Plan: Assessment and plan below following discussion of case with ED provider and reviewing patient history/pertinent normal/abnormal diagnostic test results. Alcohol withdrawal Lactic acidosis hypertension, slightly elevated Alcoholic hepatitis, likely low Maddrey's DF score with normal coags Hypokalemia mood disorder, stable Hyperglycemia rule out DM Admit to PCU to facilitate phenobarbital protocol ABELARDO S, DT precautions Monitor lactic acid response to IVF Replace potassium Check hemoglobin A1c DVT prophylaxis. Lovenox subcu Full code Patient requesting updates providers. Ms. Kylah Connelly, contact #[phone]. Text document was generated using [employer] voice recognition software. It may contain grammatical or spelling errors. Kindly contact undersigned for clarification of any documentation item in question. Admission and Anticipated Discharge Date Admission Date: October 26, 2024 History of Present Illness Chief Complaint: Detox Primary Care Provider: Vida Hernandez DO History obtained from patient and records. Medical history significant for hypertension, PVCs, GERD, mood disorder, alcohol abuse. Last confinement December 2022 secondary to alcoholic intoxication. Patient trying to cut down on drinking the last few days. Patient acting strange at home as per family. Some trouble speaking. Nausea without emesis symptoms. Patient brought to ER for evaluation. not comfortable taking patient home. Multiple doses of Ativan administered at the ER. Patient denies headache, chest pain, SOB, abdominal pain. No prior history of alcohol withdrawal seizures. Medical History as above Surgical History : None Family History : Heart disease Personal/Social history : Non-smoker, alcohol abuse, [employer] employee Allergies Allergy/AdvReac Type Severity Reaction Status Date / Time No Known Allergies Allergy Mild Verified 04/23/24 10:36 Home Medications Medication Instructions Recorded Confirmed Type amlodipine 10 mg tablet 10 mg PO QAM 12/31/22 10/25/24 History atenolol 25 mg tablet 25 mg PO QAM 12/31/22 10/25/24 History disulfiram 250 mg tablet 250 mg PO QAM 10/25/24 10/25/24 History escitalopram oxalate 10 mg tablet 10 mg PO DAILY 10/25/24 10/25/24 History folic acid 1 mg tablet 1 mg PO DAILY 10/25/24 10/25/24 History hydroxyzine HCl 25 mg tablet 25 mg PO Q6 PRN Anxiety 10/25/24 10/25/24 History Past Med/Surg History Problem List (Updated 10/26/24 @ 03:09 by Alvin Mathews DO) Acute hypoxic respiratory failure (Acute) Elevated lactic acid level (Acute) Acute encephalopathy (Acute) Acute hypokalemia (Acute) Acute alcohol intoxication with alcoholism with delirium (Acute) Acute alteration in mental status (Acute) Alcohol intoxication (Acute) Hypertension Medical History Hypomagnesemia Alcohol abuse Transient vision disturbance of right eye Social History Smoking Status: Never smoker Tobacco Type: Cigarettes Hx Alcohol Use: Yes Alcohol type: beer and hard liquor Hx Substance Use: No Preferred Language: Filipino Communication Ability: Effective [employer] Required: No Beliefs That Will Affect Care: None marital status: Current Living Situation: Spouse and Family current occupational status: employed Feels Safe at Home: Yes Assistive Devices: None Review of Systems Review of Systems: As per HPI, all other systems reviewed and negative Physical Exam Physical Exam: GENERAL: Comfortable, obese, pleasant, watching TV, occasional stuttering (chronic as per patient), no respiratory distress SKIN: Normal color, warm HEENT: [place] palpebral conjunctivae, no ptosis, dry buccal mucosa NECK : Supple, no tenderness CHEST : CTA, no tenderness HEART : RRR, no obvious murmurs ABDOMEN: Some distention, nontender EXTREMITIES : No LE swelling/tenderness, palpable pulses, no other conspicuous deformities noted NEUROLOGIC : Coherent, no facial asymmetry, occasional stuttering, no other gross focality Results & Data Results & Data Vital Signs (Past 12 Hours) Vital Signs Temp Pulse Pulse Resp BP BP Pulse Ox 10/26/24 01:51 36.5 C 91 H 16 140/98 95 10/26/24 00:00 82 20 150/95 H 94 10/25/24 23:30 88 16 146/88 H 95 10/25/24 23:00 89 24 143/95 H 92 10/25/24 22:30 84 20 140/92 94 10/25/24 21:30 76 22 134/86 96 10/25/24 21:27 95 10/25/24 21:23 83 20 137/91 93 10/25/24 20:56 37.1 C 77 19 130/89 92 10/25/24 20:10 87 L 10/25/24 20:06 74 16 120/85 92 10/25/24 19:33 74 10/25/24 19:24 36.5 C 81 18 125/78 95 O2 Del Method O2 Flow Rate 10/26/24 01:51 Nasal Cannula 2 10/26/24 00:00 10/25/24 23:30 10/25/24 23:00 10/25/24 22:30 Nasal Cannula 2 10/25/24 21:30 Nasal Cannula 2 10/25/24 21:27 Room Air 10/25/24 21:23 Nasal Cannula 2 10/25/24 20:56 Nasal Cannula 2 10/25/24 20:10 Nasal Cannula 0 10/25/24 20:06 Room Air 10/25/24 19:33 10/25/24 19:24 Room Air Laboratory Results Laboratory Results WBC 7.69 K/ul (4.8-10.8) 10/25/24 19:58 RBC 4.71 M/uL (4.70-6.10) 10/25/24 19:58 Hgb 15.6 g/dl (14.0-18.0) 10/25/24 19:58 Hct 43.6 % (42.0-52.0) 10/25/24 19:58 MCV 92.6 fL (80.0-100.0) 10/25/24 19:58 MCH 33.1 pg (25.0-34.0) 10/25/24 19:58 MCHC 35.8 g/dL (32.0-36.0) 10/25/24 19:58 RDW Std Deviation 49.0 fL (36.4-46.3) H 10/25/24 19:58 RDW Coeff of Abel 14.3 % (11.5-14.5) 10/25/24 19:58 Plt Count 317 K/uL (130-400) 10/25/24 19:58 MPV 8.6 fL (9.4-12.4) L 10/25/24 19:58 Immature Gran % (Auto) 0.3 % 10/25/24 19:58 Neut % (Auto) 56.3 % 10/25/24 19:58 Lymph % (Auto) 33.7 % 10/25/24 19:58 [place] % (Auto) 7.7 % 10/25/24 19:58 Eos % (Auto) 0.3 % 10/25/24 19:58 Baso % (Auto) 1.7 % 10/25/24 19:58 Neut # (Auto) 4.34 K/uL (1.40-6.50) 10/25/24 19:58 Lymph # (Auto) 2.59 K/uL (1.20-3.40) 10/25/24 19:58 Hanson # (Auto) 0.59 K/uL (0.11-0.59) 10/25/24 19:58 Eos # (Auto) 0.02 K/uL (0.00-0.50) 10/25/24 19:58 Baso # (Auto) 0.13 K/uL (0.00-0.20) 10/25/24 19:58 Immature Gran # (Auto) 0.02 K/uL (0.01-0.20) 10/25/24 19:58 PT 10.9 Seconds (9.0-12.0) 10/25/24 19:58 INR 1.0 (0.9-1.1) 10/25/24 19:58 VBG pH 7.40 (7.36-7.41) 10/25/24 19:58 VBG pCO2 47 mmHg (38-50) 10/25/24 19:58 VBG pO2 45 mmHg 10/25/24 19:58 VBG HCO3 29 mmol/L 10/25/24 19:58 VBG O2 Saturation 71.2 % 10/25/24 19:58 VBG Base Excess 3.5 mEq/L 10/25/24 19:58 Sodium 139 mmol/L (136-145) 10/25/24 19:58 Potassium 3.3 mmol/L (3.5-5.1) L 10/25/24 19:58 Chloride 96 mmol/L (98-107) L 10/25/24 19:58 Carbon Dioxide 27 mmol/L (21-32) 10/25/24 19:58 Anion Gap 16 (3-11) H 10/25/24 19:58 BUN 9 mg/dl (6-23) 10/25/24 19:58 Creatinine 0.99 mg/dl (0.6-1.4) 10/25/24 19:58 Est Cr Clr Drug Dosing Not Reportable 10/25/24 19:58 eGFR 90.52 10/25/24 19:58 BUN/Creatinine Ratio 9.1 (10-20) L 10/25/24 19:58 Glucose 151 mg/dl (70-99(Fasting)) H 10/25/24 19:58 POC Glucose 99 mg/dl (70-99) 10/25/24 21:25 Lactate 3.9 mmol/L (0.4-2.0) H* 10/25/24 19:58 Calcium 8.9 mg/dl (8.6-10.3) 10/25/24 19:58 Magnesium 2.0 mg/dl (1.7-2.4) 10/25/24 19:58 Total Bilirubin 0.7 mg/dl (0.2-1.0) 10/25/24 19:58 AST 55 U/L (13-39) H 10/25/24 19:58 ALT 55 U/L (7-52) H 10/25/24 19:58 Alkaline Phosphatase 94 U/L (34-104) 10/25/24 19:58 Troponin I High Sens 9.4 pg/ml (0-20) 10/25/24 19:58 Total Protein 7.6 gm/dl (6.0-8.3) 10/25/24 19:58 Albumin 4.2 gm/dl (3.4-5.0) 10/25/24 19:58 Globulin 3.4 gm/dl (2.5-4.0) 10/25/24 19:58 Albumin/Globulin Ratio 1.2 (0.9-2) 10/25/24 19:58 Lipase 24 U/L (11-82) 10/25/24 19:58 Urine Color Yellow 10/26/24 00:15 Urine Appearance Clear (Clear) 10/26/24 00:15 Urine pH 6.5 (4.5-7.5) 10/26/24 00:15 Ur Specific [place] 1.004 (1.000-1.030) 10/26/24 00:15 Urine Protein Negative (Negative) 10/26/24 00:15 Urine Glucose (UA) Negative (Negative) 10/26/24 00:15 Urine Ketones Negative (Negative) 10/26/24 00:15 Urine Blood Negative (Negative) 10/26/24 00:15 Urine Nitrite Negative (Negative) 10/26/24 00:15 Urine Bilirubin Negative (Negative) 10/26/24 00:15 Urine Urobilinogen Negative (Negative) 10/26/24 00:15 Ur Leukocyte Esterase Negative (Negative) 10/26/24 00:15 Urine Comment 10/26/24 00:15 Urine Opiates Screen Neg (Neg) 10/26/24 00:15 Ur Methadone, Qual Neg (Neg) 10/26/24 00:15 Urine Fentanyl Screen Neg (Neg) 10/26/24 00:15 Urine Barbiturates Neg (Neg) 10/26/24 00:15 Ur Phencyclidine (PCP) Neg (Neg) 10/26/24 00:15 U Amphetamin/Meth Scrn Neg (Neg) 10/26/24 00:15 MDMA (Ecstasy) Screen Neg (Neg) 10/26/24 00:15 U Benzodiazepines Scrn Neg (Neg) 10/26/24 00:15 Ur Cocaine Metabolite Neg (Neg) 10/26/24 00:15 U Marijuana (THC) Screen Neg (Neg) 10/26/24 00:15 Ethyl Alcohol mg/dL 446.5 mg/dl (<10.0) H 10/25/24 19:58 Impressions Chest X-Ray 10/25/24 19:45 Exam(s): XR CXR 2 VIEWS EXAM: XR Chest, 2 Views CLINICAL HISTORY: Reason for exam: hypoxia. TECHNIQUE: Frontal and lateral views of the chest. COMPARISON: 04/23/2024 FINDINGS: Lungs: Low lung volumes appears unchanged. No consolidation. No overt edema. Pleural space: No pleural effusion. No pneumothorax. Heart: Unremarkable. No cardiomegaly. Bones/joints: Unremarkable. No fracture or malalignment. IMPRESSION: No acute cardiopulmonary abnormality. Electronically signed by: Terry Alford MD 10/25/24 22:[address] 10/25/24 19:45 Exam(s): CT HEAD Without Contrast EXAM: CT Head Without Intravenous Contrast CLINICAL HISTORY: eval for stroke. TECHNIQUE: Axial computed tomography images of the head/brain without intravenous contrast. CTDI is 37 mGy and DLP is 624 mGy-cm. Automated exposure control was utilized for the study. A dose lowering technique was utilized adhering to the principles of ALARA. COMPARISON: 12/31/2022. FINDINGS: Brain: Ventricles and sulci are normal in size and configuration for age. No acute stroke. No acute hemorrhage. No abnormal extra-axial fluid collection. Ventricles: No hydrocephalus. No midline shift. Bones/joints: Unremarkable. No acute fracture. Soft tissues: Unremarkable. Sinuses: Unremarkable as visualized. No acute sinusitis. IMPRESSION: No acute abnormality. Electronically signed by: Oswald Ybarra M.D. 10/25/24 23:21 PM Head CTA 10/25/24 19:45 Exam(s): CTA HEAD With Contrast IV Amt: 115 ml optiray 320 EXAM: CT Angiography Head With Intravenous Contrast CLINICAL HISTORY: AMS, dysarthria. TECHNIQUE: Axial computed tomographic angiography images of the head with intravenous contrast. CTDI is 37 mGy and DLP is 624 mGy-cm. Automated exposure control was utilized for the study. A dose lowering technique was utilized adhering to the principles of ALARA. 3D and MIP reconstructed images were created and reviewed. CONTRAST: Patient received 115 ml optiray 320 of IV contrast COMPARISON: CT Brain 10-25-2024. FINDINGS: Right internal carotid artery: No acute abnormality. Intracranial segment is patent with no significant stenosis. No aneurysm. Right anterior cerebral artery: Unremarkable. No occlusion or significant stenosis. No aneurysm. Right middle cerebral artery: Unremarkable. No occlusion or significant stenosis. No aneurysm. Right posterior cerebral artery: Unremarkable. No occlusion or significant stenosis. No aneurysm. Right vertebral artery: Unremarkable as visualized. Left internal carotid artery: No acute abnormality. Intracranial segment is patent with no significant stenosis. No aneurysm. Left anterior cerebral artery: Unremarkable. No occlusion or significant stenosis. No aneurysm. Left middle cerebral artery: Unremarkable. No occlusion or significant stenosis. No aneurysm. Left posterior cerebral artery: Unremarkable. No occlusion or significant stenosis. No aneurysm. Left vertebral artery: Unremarkable as visualized. Basilar artery: Unremarkable. No occlusion or significant stenosis. No aneurysm. IMPRESSION: No large vessel occlusion. Electronically signed by: Oswald Ybarra M.D. 10/25/24 23:29 PM Neck CTA 10/25/24 19:45 Exam(s): CTA NECK With Contrast IV Amt: 115 ml optiray 320 EXAM: CT Angiography Neck With Intravenous Contrast CLINICAL HISTORY: ams, dysarthria. TECHNIQUE: Routine carotid CT angiography protocol was performed with intravenous contrast. NASCET criteria using the distal ICAs for comparison were used for evaluation of stenoses. CTDI is 37 mGy and DLP is 624 mGy-cm. Automated exposure control was utilized for the study. A dose lowering technique was utilized adhering to the principles of ALARA. 3D and MIP reconstructed images were created and reviewed. CONTRAST: Patient received 115 ml optiray 320 of IV contrast COMPARISON: None. FINDINGS: VASCULATURE: Right common carotid artery: Unremarkable. No occlusion or significant stenosis. No dissection. Right internal carotid artery: Mild calcified plaque at the carotid bulb without a hemodynamically significant stenosis. No dissection. Right external carotid artery: Unremarkable. No occlusion. Right vertebral artery: Unremarkable. No occlusion or significant stenosis. No dissection. Left common carotid artery: Unremarkable. No occlusion or significant stenosis. No dissection. Left internal carotid artery: Mild calcified plaque at the carotid bulb without a hemodynamically significant stenosis. No dissection. Left external carotid artery: Unremarkable. No occlusion. Left vertebral artery: Unremarkable. No occlusion or significant stenosis. No dissection. NECK: Bones/joints: Mild degenerative changes of the spine. No acute fracture. Soft tissues: Unremarkable. Lung apices: Clear. CAROTID STENOSIS REFERENCE USING NASCET CRITERIA: % ICA stenosis = (1 - narrowest ICA diameter/diameter of distal cervical ICA) x 100. Mild - <50% stenosis. Moderate - 50-69% stenosis. Severe - 70-94% stenosis. Near occlusion - 95-99% stenosis. Occluded - 100% stenosis. IMPRESSION: Mild calcified plaque at the bilateral carotid bulbs without a hemodynamically significant stenosis. Electronically signed by: Oswald Ybarra M.D. 10/25/24 23:37 PM Diagnostic Findings EKG as per my interpretation : Code Status & VTE Plan VTE Prophylaxis Plan VTE Prophylaxis will be ordered: Yes
[2024-10-26 03:40] LABS: Base Excess VBG 2.9 mEq/L; HCO3 VBG 28 mmol/L; Oxygen Saturation VBG 95.0 %; PCO2 VBG 43 mmHg (38-50); PO2 VBG 72 mmHg; pH VBG 7.42 (7.36-7.41)
[2024-10-26] MEDS: PROMETHAZINE 12.5 MG/50.5 ML BAG IV PRN (03:42)
[2024-10-26 03:45] LABS: Hematocrit (blood only) 41.6 % (42.0-52.0); Hemoglobin 14.2 g/dl (14.0-18.0); Immature Granulocytes # (auto) 0.02 K/uL (0.01-0.20); Immature Granulocytes % (auto) 0.3 %; Mean Corpuscular Hemoglobin 31.6 pg (25.0-34.0); Mean Corpuscular Volume 92.4 fL (80.0-100.0); Platelet Count 260 K/uL (130-400); RDW Standard Deviation 50.6 fL (36.4-46.3); Red Blood Count 4.50 M/uL (4.70-6.10); White Blood Count 6.03 K/ul (4.8-10.8)
[2024-10-26 04:02] LABS: Alanine Aminotransferase 49.0 U/L (7-52); Albumin Globulin Ratio 1.2 (0.9-2); Alkaline Phosphatase 86.0 U/L (34-104); Anion Gap 13.0 (3-11); Bilirubin,Total 0.7 mg/dl (0.2-1.0); Blood Urea Nitrogen 6.0 mg/dl (6-23); Calcium 8.5 mg/dl (8.6-10.3); Carbon Dioxide 27.0 mmol/L (21-32); Chloride 103.0 mmol/L (98-107); Creatinine Clr Calc Pharmacy 140.7 ml/min; Globulin 3.1 gm/dl (2.5-4.0); Glucose 104.0 mg/dl (70-99(Fasting)); Potassium 3.9 mmol/L (3.5-5.1); Sodium 143.0 mmol/L (136-145); Total Protein 6.9 gm/dl (6.0-8.3)
[2024-10-26] MEDS ORDERED: LACTATED RINGER'S 250 ML IV SCH (05:00)
[2024-10-26] MEDS: LACTATED RINGER'S 250 ML IV SCH (05:41)
[2024-10-26] MEDS: SODIUM CHLORIDE 0.9% 1,000 ML IV SCH (08:00)
[2024-10-26] MEDS ORDERED: FOLIC ACID 1 MG TAB PO SCH (09:00)
[2024-10-26 09:20] LABS: Hemoglobin A1C 5.3 % (4.5-5.6)
[2024-10-26] MEDS: PROMETHAZINE 25 MG/51 ML BAG IV STA (09:31)
[2024-10-26] MEDS: ESCITALOPRAM OXALATE 10 MG TAB PO SCH (10:16)
[2024-10-26] MEDS: ATENOLOL 25 MG TABLET PO SCH (10:16)
[2024-10-26] MEDS: THIAMINE HCL 100 MG TAB PO SCH (10:16)
[2024-10-26] MEDS: MULTIVITAMIN TAB PO SCH (10:16)
[2024-10-26] MEDS: FOLIC ACID 1 MG TAB PO SCH (10:16)
[2024-10-26] MEDS: ENOXAPARIN INJ 40 MG/0.4 ML SYR SQ SCH (10:17)
[2024-10-26] MEDS ORDERED: Ativan IV Alcohol Withdrawal--Active Protocol IV PRN (13:55)
[2024-10-26] MEDS ORDERED: chlordiazePOXIDE ALCOHOL WITHDRAWL 25MG PO STA (13:55)
--- NOTE | 2024-10-26 14:41 | Hospitalist Progress Note ---
Date of Service October 26, 2024 Assessment & Plan (1) Alcohol intoxication: Plan: (1) Alcohol withdrawal: Plan: Assessment and plan below following discussion of case with ED provider and reviewing patient history/pertinent normal/abnormal diagnostic test results. Alcohol withdrawal Lactic acidosis hypertension, slightly elevated Alcoholic hepatitis, likely low Maddrey's DF score with normal coags Hypokalemia mood disorder, stable Hyperglycemia rule out DM 10/26 Seen at his room at the fourth floor Alcohol drawl scale score 7 Change protocol to Librium protocol with Ativan IV as needed Continue IV fluids Discussed patient regarding alcohol rehab, he is declining at this time, will continue discussion Discussed with patient regarding his mood, reports increasing depression and anxiety lately largely secondary to stressors at work Will consult psychiatry service BP elevated likely secondary to alcohol withdrawal As needed hydralazine will be ordered Monitor LFTs Potassium 3.9 Lactic acid trending down Continue IV fluids DVT prophylaxis. Lovenox subcu Full code plan of care discussed with patient and his Kylah in detail and at length all questions answered they are understanding, agreeable, comfortable with the plan of care Admission and Anticipated Discharge Date Admission Date: October 26, 2024 Subjective seen resting in bed, comfortable, not in distress Patient's at the bedside visiting Patient states he is feeling anxious, has occasional nausea Denies shortness of breath, chest pain, palpitations, dizziness No abdominal pain States mood has been down lately Has multiple stressors secondary to current job No other new symptoms Review of Systems Review of Systems: all noted and negative except for above Physical Exam Physical Exam: General- oriented x 3, not in distress, speaks in sentences with no effort or accessory muscle use Eyes- anicteric Neck- no JVD Lungs- clear breath sounds bilaterally, no rales/wheezes Heart- normal rate, regular rhythm; no murmurs Abdomen- normal bowel sounds, nondistended, soft, nontender Extremities- no pretibial edema, no calf tenderness no tremors Neuro- alert, oriented x 3; no gross focal neurologic deficits Skin- warm & dry Results & Data Results & Data Vital Signs (Past 12 Hours) Vital Signs Temp Pulse Pulse Resp BP BP Pulse Ox 10/26/24 13:41 37.1 C 96 H 20 155/95 H 96 10/26/24 13:00 102 H 18 155/100 H 93 10/26/24 12:27 108 H 14 95 10/26/24 12:00 149/85 H 10/26/24 11:57 98 H 19 94 10/26/24 11:36 113 H 16 96 10/26/24 11:36 131/109 H 10/26/24 11:34 36.9 C 107 H 13 131/109 H 96 10/26/24 07:56 36.5 C 102 H 18 166/115 H 94 10/26/24 07:16 96 H 10/26/24 04:30 91 H 17 154/103 H 92 10/26/24 04:30 36.6 C 10/26/24 03:00 85 20 134/98 96 O2 Del Method O2 Flow Rate 10/26/24 13:41 Room Air 10/26/24 13:00 Room Air 10/26/24 12:27 10/26/24 12:00 10/26/24 11:57 10/26/24 11:36 10/26/24 11:36 10/26/24 11:34 Room Air 10/26/24 07:56 Nasal Cannula 2 10/26/24 07:16 10/26/24 04:30 Nasal Cannula 2 10/26/24 04:30 10/26/24 03:00 Nasal Cannula 2 all noted and reviewed including below (1) Alcohol intoxication Complication of substance-induced condition: with unspecified complication Qualified Code(s): F10.929 - Alcohol use, unspecified with intoxication, unspe cified
[2024-10-27 08:57] LABS: Hematocrit (blood only) 46.4 % (42.0-52.0); Hemoglobin 15.9 g/dl (14.0-18.0); Immature Granulocytes # (auto) 0.02 K/uL (0.01-0.20); Immature Granulocytes % (auto) 0.4 %; Mean Corpuscular Hemoglobin 31.6 pg (25.0-34.0); Mean Corpuscular Volume 92.2 fL (80.0-100.0); Platelet Count 200 K/uL (130-400); RDW Standard Deviation 49.4 fL (36.4-46.3); Red Blood Count 5.03 M/uL (4.70-6.10); White Blood Count 5.47 K/ul (4.8-10.8)
[2024-10-27 09:14] LABS: Alanine Aminotransferase 45.0 U/L (7-52); Alkaline Phosphatase 94.0 U/L (34-104); Anion Gap 10.0 (3-11); Bilirubin,Total 2.1 mg/dl (0.2-1.0); Blood Urea Nitrogen 11.0 mg/dl (6-23); Calcium 9.8 mg/dl (8.6-10.3); Carbon Dioxide 24.0 mmol/L (21-32); Chloride 102.0 mmol/L (98-107); Creatinine Clr Calc Pharmacy 125.0 ml/min; Glucose 96.0 mg/dl (70-99(Fasting)); Magnesium 1.6 mg/dl (1.7-2.4); Potassium 3.8 mmol/L (3.5-5.1); Sodium 136.0 mmol/L (136-145); Total Protein 7.6 gm/dl (6.0-8.3)
--- NOTE | 2024-10-27 09:51 | Electrocardiogram Report ---
Test Reason : Blood Pressure : */* mmHG Vent. Rate : 108 BPM Atrial Rate : 108 BPM P-R Int : 124 ms QRS Dur : 78 ms QT Int : 350 ms P-R-T Axes : 64 54 52 degrees QTcB Int : 469 ms Sinus tachycardia Septal infarct (cited on or before 23-Apr-2024) Abnormal ECG When compared with ECG of 23-Apr-2024 08:28, No significant change was found Confirmed by Esteban Lyons ([id number]) on 10/27/2024 9:51:13 AM Referred By: REFERRED SELF Confirmed By: Esteban Lyons
--- NOTE | 2024-10-27 11:58 | Hospitalist Progress Note ---
Date of Service October 27, 2024 Assessment & Plan (1) Alcohol intoxication: Plan: (1) Alcohol withdrawal: Plan: Assessment and plan below following discussion of case with ED provider and reviewing patient history/pertinent normal/abnormal diagnostic test results. Alcohol withdrawal Lactic acidosis hypertension, slightly elevated Alcoholic hepatitis, likely low Maddrey's DF score with normal coags Hypokalemia mood disorder, stable Hyperglycemia rule out DM 10/26 Seen at his room at the fourth floor Alcohol drawl scale score 7 Change protocol to Librium protocol with Ativan IV as needed Continue IV fluids Discussed patient regarding alcohol rehab, he is declining at this time, will continue discussion Discussed with patient regarding his mood, reports increasing depression and anxiety lately largely secondary to stressors at work Will consult psychiatry service BP elevated likely secondary to alcohol withdrawal As needed hydralazine will be ordered Monitor LFTs Potassium 3.9 Lactic acid trending down Continue IV fluids 10/27 ABELARDO's score seems to be improving Continue Librium protocol with IV Ativan as needed Continue to monitor closely Psychiatry service consulted Patient still prefers outpatient alcohol cessation programs BP elevated likely secondary to alcohol drawl As needed hydralazine ordered AST ALT stable Bilirubin increased, positive indirect hyperbilirubinemia Check liver ultrasound lactic acid normalized Patient voiced preference for discharge today Explained he is still under alcohol drawl protocol to avoid DTs He is agreeable to stay in the hospital for further treatment DVT prophylaxis. Lovenox subcu Full code plan of care discussed with patient in detail and at length all questions answered they are understanding, agreeable, comfortable with the plan of care Admission and Anticipated Discharge Date Admission Date: October 26, 2024 Subjective seen resting in bed, comfortable, not in distress Awake and alert, oriented x 3 Pleasant gentleman States he feels better today overall No tremors, anxiety, confusion, sweating, hallucinations Denies chest pain, shortness of breath No other new symptoms Review of Systems Review of Systems: all noted and negative except for above Physical Exam Physical Exam: General- oriented x 3, not in distress, speaks in sentences with no effort or accessory muscle use Eyes- anicteric Neck- no JVD Lungs- clear breath sounds bilaterally, no rales/wheezes Heart- normal rate, regular rhythm; no murmurs Abdomen- normal bowel sounds, nondistended, soft, nontender Extremities- no pretibial edema, no calf tenderness no tremors Neuro- alert, oriented x 3; no gross focal neurologic deficits Skin- warm & dry Psych-normal mood and affect, denies suicidal ideations Results & Data Results & Data Vital Signs (Past 12 Hours) Vital Signs Temp Pulse Pulse Resp BP Pulse Ox O2 Del Method 10/27/24 10:59 36.3 C L 105 H 18 182/84 H 95 Room Air 10/27/24 07:15 36.6 C 95 H 18 153/107 H 96 Room Air 10/27/24 05:43 77 10/27/24 02:05 36.7 C 93 H 15 161/97 H 95 Room Air 10/27/24 00:00 93 H all noted and reviewed including below (1) Alcohol intoxication Complication of substance-induced condition: with unspecified complication Qualified Code(s): F10.929 - Alcohol use, unspecified with intoxication, unspecified
[2024-10-27] MEDS: MAGNESIUM SULFATE / D5W 1 GM/100 ML BAG IV ONE (16:39)
[2024-10-28 06:01] LABS: Hematocrit (blood only) 43.1 % (42.0-52.0); Hemoglobin 15.0 g/dl (14.0-18.0); Immature Granulocytes # (auto) 0.02 K/uL (0.01-0.20); Immature Granulocytes % (auto) 0.3 %; Mean Corpuscular Hemoglobin 31.6 pg (25.0-34.0); Mean Corpuscular Volume 90.9 fL (80.0-100.0); Platelet Count 188 K/uL (130-400); RDW Standard Deviation 48.5 fL (36.4-46.3); Red Blood Count 4.74 M/uL (4.70-6.10); White Blood Count 6.36 K/ul (4.8-10.8)
[2024-10-28 06:18] LABS: Alanine Aminotransferase 43.0 U/L (7-52); Alkaline Phosphatase 86.0 U/L (34-104); Anion Gap 10.0 (3-11); Bilirubin,Total 1.7 mg/dl (0.2-1.0); Blood Urea Nitrogen 17.0 mg/dl (6-23); Calcium 9.3 mg/dl (8.6-10.3); Carbon Dioxide 23.0 mmol/L (21-32); Chloride 103.0 mmol/L (98-107); Creatinine Clr Calc Pharmacy 111.0 ml/min; Glucose 88.0 mg/dl (70-99(Fasting)); Magnesium 1.9 mg/dl (1.7-2.4); Potassium 3.6 mmol/L (3.5-5.1); Sodium 136.0 mmol/L (136-145); Total Protein 7.0 gm/dl (6.0-8.3)
[2024-10-28 08:12] VITALS: O2SAT 95
--- NOTE | 2024-10-28 09:50 | Psychiatric Consultation ---
Date of Consultation October 28, 2024 Impression / Recommendations Impression 52 y/o M h/o alcohol dependence, alcoholic hepatitis, HTN, PVCs, GERD who presents with AMS in the context of alcohol intoxication (BAL 446.5). Psychiatry consulted for evaluation of depression. Concerned for generalized anxiety disorder and possible depression. Reports drivers for alcohol use to be isolation and anxious ruminations. He minimizes impact of alcohol on interview, however appears to be in the contemplative stage for sobriety. Does not want inpatient rehab and would like to continue outpatient psych f/u and community programs. We discussed relapse prevention strategies. No safety concerns presented. Overall, I spent a total of 80 minutes with this case including review of chart records, nursing report, review of lab work, direct evaluation of the patient at bedside, counseling the patient, discussion of the patient with the hospitalist provider, discussion with the psychiatric liaison during clinical rounds, and documentation in the electronic health record. (1) Generalized anxiety disorder: (2) Depression: (3) Alcohol use disorder: Plan 10/28/24: Increase Escitalopram to 20mg daily Hydroxyzine 50mg HS Psych History Identifying Data 52 y/o M h/o alcohol dependence, alcoholic hepatitis, HTN, PVCs, GERD who presents with AMS in the context of alcohol intoxication (BAL 446.5). Psychiatry consulted for evaluation of depression. Chief Complaint Alcohol dependence History of Present Illness The patient reports 10+ years of alcohol problem. Initially drank for social reasons now drinking to cope with isolation (works from home), and to cope with racing thoughts about work responsibilites. Family concern for depression. Drinks 2-3 pints of malt liquor daily. Denies prescription drug or street drug use. Recent sobriety of 3 weeks in the summer and reports doing well. Longest sobriety of 1-2 years between 2017 and 2019 and says he was traveling more then. Denies SI or h/o past SI, or suicide attempts. Reports anxious ruminations at night impacting sleep onset. Trouble staying asleep. Has been taking Hydroxyzine 25mg plus Benadryl for sleep. Poor concentration. Fair energy. Enjoys his hobbies: biking, hiking and brings him krissy. Family h/o alcohol dependence in father and both father and paternal grandfather in 50s with [facility]. Denies any dysfunction at work caused by alcohol dependence, reports losing connection with family and missing some events due to recovering from effects of alcohol. Last relapse involved him having significant work stress and went to [facility] to get 1-2 drinks, and then this escalated into more drinking. Feels disappointment for drinking too much. No past rehab. Previously was going to on Saturdays. Has a plan to goto a addiction psychiatrist next week and do a virtual rehab program. Cites reason as being unable to do inperson program is work deadlines. 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 Allergies Allergy/AdvReac Type Severity Reaction Status Date / Time No Known Allergies Allergy Mild Verified 04/23/24 10:36 Home Medications Medication Instructions Recorded Confirmed Type amlodipine 10 mg tablet 10 mg PO QAM 12/31/22 10/25/24 History atenolol 25 mg tablet 25 mg PO QAM 12/31/22 10/25/24 History disulfiram 250 mg tablet 250 mg PO QAM 10/25/24 10/25/24 History escitalopram oxalate 10 mg tablet 10 mg PO DAILY 10/25/24 10/25/24 History folic acid 1 mg tablet 1 mg PO DAILY 10/25/24 10/25/24 History hydroxyzine HCl 25 mg tablet 25 mg PO Q6 PRN Anxiety 10/25/24 10/25/24 History Patient History Medical History Hypomagnesemia Alcohol abuse Transient vision disturbance of right eye Social History Smoking Status: Never smoker Tobacco Type: Cigarettes Hx Alcohol Use: Yes Alcohol type: beer and hard liquor Hx Substance Use: No Preferred Language: Ukrainian Communication Ability: Effective Aws Architect Required: No Beliefs That Will Affect Care: None marital status: Current Living Situation: Spouse and Family current occupational status: employed Feels Safe at Home: Yes Assistive Devices: None Physical Exam Mental Examination: Appearance: Well Groomed (flushed face) Eye Contact: Maintains Eye Contact Motor Behavior: Unremarkable Speech: Normal Mood: Anxious Affect: Congruent Thought Process: Intact and Linear Thought Content: Intact Hallucinations: None Insight: Poor (to limited) Judgement: Fair Vital Signs (Past 24 Hours): Last Vital Signs Temp 36.9 C 10/28/24 08:12 Pulse 80 10/28/24 08:12 Resp 18 10/28/24 08:12 BP 147/89 H 10/28/24 08:12 Pulse Ox 95 10/28/24 08:12 O2 Del Method Room Air 10/28/24 08:12 O2 Flow Rate 2 10/26/24 07:56 Results & Data (PSY) Medications Administered Amlodipine Besylate (Amlodipine Besylate 5 Mg Tab) 10 mg PO QAM [facility] Stop: 11/25/24 08:59 Last Admin: 10/27/24 09:55 Dose: 10 mg Documented By: Admin: 10/26/24 10:15 Dose: 10 mg [place]ed [place]: [facility]tenolol (Atenolol 25 Mg Tablet) 25 mg PO QAM [facility] Stop: 11/25/24 08:59 Last Admin: 10/28/24 08:14 Dose: 25 mg Documented By: Admin: 10/27/24 08:39 Dose: 25 mg Documented By: Admin: 10/26/24 10:16 Dose: 25 mg Documented By: [facility] Enoxaparin Sodium (Enoxaparin Inj 40 Mg/0.4 Ml Syr) 40 mg SQ QAM [facility] Stop: 11/25/24 08:59 Last Admin: 10/28/24 08:14 Dose: 40 mg Documented By: Admin: 10/27/24 09:55 Dose: 40 mg Documented By: Admin: 10/26/24 10:17 Dose: 40 mg Documented By: [facility] Escitalopram Oxalate (Escitalopram Oxalate 10 Mg Tab) 10 mg PO DAILY [facility] Stop: 11/25/24 08:59 Last Admin: 10/28/24 08:15 Dose: 10 mg Documented By: Admin: 10/27/24 08:39 Dose: 10 mg Documented By: Admin: 10/26/24 10:16 Dose: 10 mg Documented By: [facility] Folic Acid (Folic Acid 1 Mg Tab) 1 mg PO DAILY [facility] Stop: 11/25/24 08:59 Last Admin: 10/28/24 08:15 Dose: 1 mg Documented By: Admin: 10/27/24 08:39 Dose: 1 mg Documented By: Admin: 10/26/24 10:16 Dose: 1 mg Documented By: [facility] Promethazine HCl (Phenergan) 12.5 mg in 50.5 mls @ 202 mls/hr IV Q6H PRN PRN Reason: Nausea And Vomiting Stop: 11/25/24 00:47 Last Infusion: 10/26/24 12:07 Dose: Infused Documented By: Admin: 10/26/24 11:43 Dose: 202 mls/hr Documented By: Infusion: 10/26/24 04:35 Dose: Infused Documented By: Admin: 10/26/24 03:42 Dose: 202 mls/hr Documented By: MARCELLE Lorazepam (Lorazepam 2 Mg/1 Ml Vial) 1 mg IV UD PRN; Protocol PRN Reason: EtOH Withdrawal AWSS Score 6,7 Stop: 11/25/24 13:54 Last Admin: 10/26/24 19:38 Dose: 1 mg Documented By: Admin: 10/26/24 14:16 Dose: 1 mg Documented By: LETY Lorazepam (Lorazepam 2 Mg/1 Ml Vial) 0.5 mg IV Q4H PRN PRN Reason: Anxiety Stop: 11/26/24 07:52 Last Admin: 10/27/24 21:28 Dose: 0.5 mg Documented By: Admin: 10/27/24 16:44 Dose: 0.5 mg Documented By: LUIS Multivitamins (Multivitamin Tab) 1 tab PO QAM [facility] Stop: 11/25/24 08:59 Last Admin: 10/28/24 08:14 Dose: 1 tab Documented By: Admin: 10/27/24 08:39 Dose: 1 tab Documented By: Admin: 10/26/24 10:16 Dose: 1 tab Documented By: LYDIA Thiamine HCl (Thiamine Hcl 100 Mg Tab) 100 mg PO QAM [facility] Stop: 11/25/24 08:59 Last Admin: 10/28/24 08:15 Dose: 100 mg Documented By: Admin: 10/27/24 08:39 Dose: 100 mg Documented By: Admin: 10/26/24 10:16 Dose: 100 mg Documented By: LYDIA [place] [address] IN/OBS CONSULT LVL 5,80M Patient Type New History Detailed Exam Detailed Medical Decision Making High Complexity Diagnoses Generalized anxiety disorder F41.1 Depression F32.A Alcohol use disorder F10.90
[2024-10-28 15:47] VITALS: BP 123/64; PULSE 91; RESP 20; TEMP 98.2
--- NOTE | 2024-10-28 16:39 | Discharge Summary ---
Discharge Summary Date of Service October 28, 2024 delayed entry date of service noted above Principal Dx & Hospital Course #1 = Principal Diagnosis (1) Alcohol intoxication: (1) Alcohol withdrawal: Plan: Assessment and plan below following discussion of case with ED provider and reviewing patient history/pertinent normal/abnormal diagnostic test results. Alcohol withdrawal Lactic acidosis hypertension, slightly elevated Alcoholic hepatitis, likely low Maddrey's DF score with normal coags Hypokalemia mood disorder, stable Hyperglycemia rule out DM 10/26 Seen at his room at the fourth floor Alcohol drawl scale score 7 Change protocol to Librium protocol with Ativan IV as needed Continue IV fluids Discussed patient regarding alcohol rehab, he is declining at this time, will continue discussion Discussed with patient regarding his mood, reports increasing depression and anxiety lately largely secondary to stressors at work Will consult psychiatry service BP elevated likely secondary to alcohol withdrawal As needed hydralazine will be ordered Monitor LFTs Potassium 3.9 Lactic acid trending down Continue IV fluids 10/27 ABELARDO's score seems to be improving Continue Librium protocol with IV Ativan as needed Continue to monitor closely Psychiatry service consulted Patient still prefers outpatient alcohol cessation programs BP elevated likely secondary to alcohol drawl As needed hydralazine ordered AST ALT stable Bilirubin increased, positive indirect hyperbilirubinemia Check liver ultrasound lactic acid normalized Patient voiced preference for discharge today Explained he is still under alcohol drawl protocol to avoid DTs He is agreeable to stay in the hospital for further treatment 10/28 patient clinically improved AWSS score remaind very low no tremors, anxiety, sweating Pysch Liaison notes reviewed discussed with patient's in detail and at length she is very concerned re: patient's pattern of alcoholism reassured her that I will request Psychiatrist to evaluate patient and have rn case management speak with her regarding outpatient alcohol cessation programs as patient still adamantly declining inpatient alcohol rehab program evaluated by Psychiatry: increase Lexapro to 20mg daily, add Hydralazine 50mg at HS, outpatient close ff up with Psychiatry and outpatient alcohol cessation program patient requesting discharge still adamantly declining inpatient alcohol rehab despite extensive encouragement from myself and his they are planning to explore a new outpatient/online alcohol cessation program which whill require more accountability for patient rn case management discussed outpatient resources discharge on Librium protocol advised to not take with alcohol Bilirubin trending down ff up LFTs as outpatient Bilateral Carotid Bulb Plaque CT angio head and neck: Mild calcified plaque at the bilateral carotid bulbs without a hemodynamically significant stenosis. -- Further work up, management, and ff up as outpatient please re-evaluated and advise patient further re: driving plan of care discussed with patient and his Kylah in detail and at length all questions answered they are understanding, agreeable, comfortable with the plan of care Notes For Next Care Provider Bilateral Carotid Bulb Plaque CT angio head and neck: Mild calcified plaque at the bilateral carotid bulbs without a hemodynamically significant stenosis. -- Further work up, management, and ff up as outpatient Medication Changes From Visit Librium taper increase Lexapro to 20mg daily start Hydralazine 50mg HS Admission HPI Per Admitting Provider History obtained from patient and records. Medical history significant for hypertension, PVCs, GERD, mood disorder, alcohol abuse. Last confinement December 2022 secondary to alcoholic intoxication. Patient trying to cut down on drinking the last few days. Patient acting strange at home as per family. Some trouble speaking. Nausea without emesis symptoms. Patient brought to ER for evaluation. not comfortable taking patient home. Multiple doses of Ativan administered at the ER. Patient denies headache, chest pain, SOB, abdominal pain. No prior history of alcohol withdrawal seizures. Medical History as above Surgical History : None Family History : Heart disease Personal/Social history : Non-smoker, alcohol abuse, [employer] employee Admission Exam Per Admitting Provider GENERAL: Comfortable, obese, pleasant, watching TV, occasional stuttering (chronic as per patient), no respiratory distress SKIN: Normal color, warm HEENT: [place] palpebral conjunctivae, no ptosis, dry buccal mucosa NECK : Supple, no tenderness CHEST : CTA, no tenderness HEART : RRR, no obvious murmurs ABDOMEN: Some distention, nontender EXTREMITIES : No LE swelling/tenderness, palpable pulses, no other conspicuous deformities noted NEUROLOGIC : Coherent, no facial asymmetry, occasional stuttering, no other gross focality Discharge Exam General- oriented x 3, not in distress, speaks in sentences with no effort or accessory muscle use Eyes- anicteric Neck- no JVD Lungs- clear breath sounds bilaterally, no rales/wheezes Heart- normal rate, regular rhythm; no murmurs Abdomen- normal bowel sounds, nondistended, soft, nontender Extremities- no pretibial edema, no calf tenderness no tremors Neuro- alert, oriented x 3; no gross focal neurologic deficits Skin- warm & dry Updated Medication List Medication Instructions Recorded Confirmed Type amlodipine 10 mg tablet 10 mg PO QAM 12/31/22 10/25/24 History atenolol 25 mg tablet 25 mg PO QAM 12/31/22 10/25/24 History disulfiram 250 mg tablet 250 mg PO QAM 10/25/24 10/25/24 History folic acid 1 mg tablet 1 mg PO DAILY 10/25/24 10/25/24 History chlordiazepoxide HCl 10 mg capsule 10 mg PO Q8H #3 caps 10/28/24 Rx chlordiazepoxide HCl 5 mg capsule 5 mg PO Q12H #2 caps 10/28/24 Rx escitalopram oxalate 10 mg tablet 20 mg (2 x 10 mg) PO DAILY #0 tabs 10/28/24 10/25/24 Rx hydroxyzine HCl 25 mg tablet 50 mg (2 x 25 mg) PO HS Anxiety #0 10/28/24 10/25/24 Rx tabs multivitamin with folic acid 400 1 tab PO QAM 30 days #30 tabs 10/28/24 Rx mcg tablet (Daily-Duncan (with folic acid)) thiamine HCl (vitamin B1) 100 mg 100 mg PO QAM 30 days #30 tabs 10/28/24 Rx tablet Hospital Stay Data Consultations 10/26/24 00:05 ED Decision to Admit Stat 10/28/24 10:05 Consult Psychiatry Routine Diagnostic Imagining Performed Laboratory Results WBC 6.36 K/ul (4.8-10.8) 10/28/24 05:19 RBC 4.74 M/uL (4.70-6.10) 10/28/24 05:19 Hgb 15.0 g/dl (14.0-18.0) 10/28/24 05:19 Hct 43.1 % (42.0-52.0) 10/28/24 05:19 MCV 90.9 fL (80.0-100.0) 10/28/24 05:19 MCH 31.6 pg (25.0-34.0) 10/28/24 05:19 MCHC 34.8 g/dL (32.0-36.0) 10/28/24 05:19 RDW Std Deviation 48.5 fL (36.4-46.3) H 10/28/24 05:19 RDW Coeff of Abel 14.6 % (11.5-14.5) H 10/28/24 05:19 Plt Count 188 K/uL (130-400) 10/28/24 05:19 MPV 9.9 fL (9.4-12.4) 10/28/24 05:19 Immature Gran % (Auto) 0.3 % 10/28/24 05:19 Neut % (Auto) 62.9 % 10/28/24 05:19 Lymph % (Auto) 24.4 % 10/28/24 05:19 [place] % (Auto) 7.9 % 10/28/24 05:19 Eos % (Auto) 3.6 % 10/28/24 05:19 Baso % (Auto) 0.9 % 10/28/24 05:19 Neut # (Auto) 4.00 K/uL (1.40-6.50) 10/28/24 05:19 Lymph # (Auto) 1.55 K/uL (1.20-3.40) 10/28/24 05:19 [place] # (Auto) 0.50 K/uL (0.11-0.59) 10/28/24 05:19 Eos # (Auto) 0.23 K/uL (0.00-0.50) 10/28/24 05:19 Baso # (Auto) 0.06 K/uL (0.00-0.20) 10/28/24 05:19 Immature Gran # (Auto) 0.02 K/uL (0.01-0.20) 10/28/24 05:19 PT 10.9 Seconds (9.0-12.0) 10/25/24 19:58 INR 1.0 (0.9-1.1) 10/25/24 19:58 VBG pH 7.42 (7.36-7.41) H 10/26/24 03:19 VBG pCO2 43 mmHg (38-50) 10/26/24 03:19 VBG pO2 72 mmHg 10/26/24 03:19 VBG HCO3 28 mmol/L 10/26/24 03:19 VBG O2 Saturation 95.0 % 10/26/24 03:19 VBG Base Excess 2.9 mEq/L 10/26/24 03:19 Sodium 136 mmol/L (136-145) 10/28/24 05:19 Potassium 3.6 mmol/L (3.5-5.1) 10/28/24 05:19 Chloride 103 mmol/L (98-107) 10/28/24 05:19 Carbon Dioxide 23 mmol/L (21-32) 10/28/24 05:19 Anion Gap 10 (3-11) 10/28/24 05:19 BUN 17 mg/dl (6-23) 10/28/24 05:19 Creatinine 0.93 mg/dl (0.6-1.4) 10/28/24 05:19 Est Cr Clr Drug Dosing 111.0 ml/min 10/28/24 05:19 eGFR 97.58 10/28/24 05:19 BUN/Creatinine Ratio 18.3 (10-20) 10/28/24 05:19 Glucose 88 mg/dl (70-99(Fasting)) 10/28/24 05:19 POC Glucose 99 mg/dl (70-99) 10/25/24 21:25 Estimat Average Glucose 105 mg/dl 10/26/24 03:19 Hemoglobin A1c 5.3 % (4.5-5.6) 10/26/24 03:19 Lactate 1.2 mmol/L (0.4-2.0) 10/27/24 08:25 Calcium 9.3 mg/dl (8.6-10.3) 10/28/24 05:19 Phosphorus 4.5 mg/dl (2.5-4.9) 10/28/24 05:19 Magnesium 1.9 mg/dl (1.7-2.4) 10/28/24 05:19 Total Bilirubin 1.7 mg/dl (0.2-1.0) H 10/28/24 05:19 Direct Bilirubin 0.3 mg/dl (0-0.2) H 10/28/24 05:19 AST 48 U/L (13-39) H 10/28/24 05:19 ALT 43 U/L (7-52) 10/28/24 05:19 Alkaline Phosphatase 86 U/L (34-104) 10/28/24 05:19 Troponin I High Sens 9.4 pg/ml (0-20) 10/25/24 19:58 Total Protein 7.0 gm/dl (6.0-8.3) 10/28/24 05:19 Albumin 4.0 gm/dl (3.4-5.0) 10/28/24 05:19 Globulin 3.1 gm/dl (2.5-4.0) 10/26/24 03:19 Albumin/Globulin Ratio 1.2 (0.9-2) 10/26/24 03:19 Lipase 24 U/L (11-82) 10/25/24 19:58 Urine Color Yellow 10/26/24 00:15 Urine Appearance Clear (Clear) 10/26/24 00:15 Urine pH 6.5 (4.5-7.5) 10/26/24 00:15 Ur Specific [place] 1.004 (1.000-1.030) 10/26/24 00:15 Urine Protein Negative (Negative) 10/26/24 00:15 Urine Glucose (UA) Negative (Negative) 10/26/24 00:15 Urine Ketones Negative (Negative) 10/26/24 00:15 Urine Blood Negative (Negative) 10/26/24 00:15 Urine Nitrite Negative (Negative) 10/26/24 00:15 Urine Bilirubin Negative (Negative) 10/26/24 00:15 Urine Urobilinogen Negative (Negative) 10/26/24 00:15 Ur Leukocyte Esterase Negative (Negative) 10/26/24 00:15 Urine Comment 10/26/24 00:15 Urine Opiates Screen Neg (Neg) 10/26/24 00:15 Ur Methadone, Qual Neg (Neg) 10/26/24 00:15 Urine Fentanyl Screen Neg (Neg) 10/26/24 00:15 Urine Barbiturates Neg (Neg) 10/26/24 00:15 Ur Phencyclidine (PCP) Neg (Neg) 10/26/24 00:15 U Amphetamin/Meth Scrn Neg (Neg) 10/26/24 00:15 MDMA (Ecstasy) Screen Neg (Neg) 10/26/24 00:15 U Benzodiazepines Scrn Neg (Neg) 10/26/24 00:15 Ur Cocaine Metabolite Neg (Neg) 10/26/24 00:15 U Marijuana (THC) Screen Neg (Neg) 10/26/24 00:15 Ethyl Alcohol mg/dL 446.5 mg/dl (<10.0) H 10/25/24 19:58 Impressions Chest X-Ray 10/25/24 19:45 Exam(s): XR CXR 2 VIEWS EXAM: XR Chest, 2 Views CLINICAL HISTORY: Reason for exam: hypoxia. TECHNIQUE: Frontal and lateral views of the chest. COMPARISON: 04/23/2024 FINDINGS: Lungs: Low lung volumes appears unchanged. No consolidation. No overt edema. Pleural space: No pleural effusion. No pneumothorax. Heart: Unremarkable. No cardiomegaly. Bones/joints: Unremarkable. No fracture or malalignment. IMPRESSION: No acute cardiopulmonary abnormality. Electronically signed by: Terry Alford MD 10/25/24 22:[address] 10/25/24 19:45 Exam(s): CT HEAD Without Contrast EXAM: CT Head Without Intravenous Contrast CLINICAL HISTORY: eval for stroke. TECHNIQUE: Axial computed tomography images of the head/brain without intravenous contrast. CTDI is 37 mGy and DLP is 624 mGy-cm. Automated exposure control was utilized for the study. A dose lowering technique was utilized adhering to the principles of ALARA. COMPARISON: 12/31/2022. FINDINGS: Brain: Ventricles and sulci are normal in size and configuration for age. No acute stroke. No acute hemorrhage. No abnormal extra-axial fluid collection. Ventricles: No hydrocephalus. No midline shift. Bones/joints: Unremarkable. No acute fracture. Soft tissues: Unremarkable. Sinuses: Unremarkable as visualized. No acute sinusitis. IMPRESSION: No acute abnormality. Electronically signed by: Oswald Ybarra M.D. 10/25/24 23:21 PM Head CTA 10/25/24 19:45 Exam(s): CTA HEAD With Contrast IV Amt: 115 ml optiray 320 EXAM: CT Angiography Head With Intravenous Contrast CLINICAL HISTORY: AMS, dysarthria. TECHNIQUE: Axial computed tomographic angiography images of the head with intravenous contrast. CTDI is 37 mGy and DLP is 624 mGy-cm. Automated exposure control was utilized for the study. A dose lowering technique was utilized adhering to the principles of ALARA. 3D and MIP reconstructed images were created and reviewed. CONTRAST: Patient received 115 ml optiray 320 of IV contrast COMPARISON: CT Brain 10-25-2024. FINDINGS: Right internal carotid artery: No acute abnormality. Intracranial segment is patent with no significant stenosis. No aneurysm. Right anterior cerebral artery: Unremarkable. No occlusion or significant stenosis. No aneurysm. Right middle cerebral artery: Unremarkable. No occlusion or significant stenosis. No aneurysm. Right posterior cerebral artery: Unremarkable. No occlusion or significant stenosis. No aneurysm. Right vertebral artery: Unremarkable as visualized. Left internal carotid artery: No acute abnormality. Intracranial segment is patent with no significant stenosis. No aneurysm. Left anterior cerebral artery: Unremarkable. No occlusion or significant stenosis. No aneurysm. Left middle cerebral artery: Unremarkable. No occlusion or significant stenosis. No aneurysm. Left posterior cerebral artery: Unremarkable. No occlusion or significant stenosis. No aneurysm. Left vertebral artery: Unremarkable as visualized. Basilar artery: Unremarkable. No occlusion or significant stenosis. No aneurysm. IMPRESSION: No large vessel occlusion. Electronically signed by: Oswald Ybarra M.D. 10/25/24 23:29 PM Neck CTA 10/25/24 19:45 Exam(s): CTA NECK With Contrast IV Amt: 115 ml optiray 320 EXAM: CT Angiography Neck With Intravenous Contrast CLINICAL HISTORY: ams, dysarthria. TECHNIQUE: Routine carotid CT angiography protocol was performed with intravenous contrast. NASCET criteria using the distal ICAs for comparison were used for evaluation of stenoses. CTDI is 37 mGy and DLP is 624 mGy-cm. Automated exposure control was utilized for the study. A dose lowering technique was utilized adhering to the principles of ALARA. 3D and MIP reconstructed images were created and reviewed. CONTRAST: Patient received 115 ml optiray 320 of IV contrast COMPARISON: None. FINDINGS: VASCULATURE: Right common carotid artery: Unremarkable. No occlusion or significant stenosis. No dissection. Right internal carotid artery: Mild calcified plaque at the carotid bulb without a hemodynamically significant stenosis. No dissection. Right external carotid artery: Unremarkable. No occlusion. Right vertebral artery: Unremarkable. No occlusion or significant stenosis. No dissection. Left common carotid artery: Unremarkable. No occlusion or significant stenosis. No dissection. Left internal carotid artery: Mild calcified plaque at the carotid bulb without a hemodynamically significant stenosis. No dissection. Left external carotid artery: Unremarkable. No occlusion. Left vertebral artery: Unremarkable. No occlusion or significant stenosis. No dissection. NECK: Bones/joints: Mild degenerative changes of the spine. No acute fracture. Soft tissues: Unremarkable. Lung apices: Clear. CAROTID STENOSIS REFERENCE USING NASCET CRITERIA: % ICA stenosis = (1 - narrowest ICA diameter/diameter of distal cervical ICA) x 100. Mild - <50% stenosis. Moderate - 50-69% stenosis. Severe - 70-94% stenosis. Near occlusion - 95-99% stenosis. Occluded - 100% stenosis. IMPRESSION: Mild calcified plaque at the bilateral carotid bulbs without a hemodynamically significant stenosis. Electronically signed by: Oswald Ybarra M.D. 10/25/24 23:37 PM 10/25/24 19:45 CT head/brain wo con Stat CTA head w con [CT angio head w con] Stat CTA neck with con [CT angio neck with con] Stat Pending Results Patient Have Any Pending Studies at Discharge: No Discharge Instructions Given to Patient (Per Discharging Provider) PLEASE REFER TO YOUR NEW MEDICATION LIST AND FOLLOW INSTRUCTIONS CAREFULLY. YOUR NEW MEDICATIONS INCLUDE: LIBRIUM- medication for alcohol withdrawal - 10mg/capsule for today thru tomorrow: 1 capsule 4pm, 1 capsule 11pm, then 1 capsule tomorrow at 8am - 5mg/capsule starting tomorrow 1 capsule at 1pm 1 capsule at 7pm, then STOP - NEVER use with alcohol Increase Lexapro to 20mg po daily. HYDROXYZINE- for anxiety - NEVER use with alcohol CONTINUE TO FOLLOW UP CLOSELY WITH PSYCHIATRY SERVICE, AND ALCOHOL CESSATION PROGRAM. PLEASE CALL YOUR PRIMARY CARE PHYSICIAN OR RETURN TO THE ER IF WITH WORSENING OF SYMPTOMS, INCLUDING shaking/tremors, anxiety, sweating, confusion, hallucinations, worsening depression and/or anxiety, etc FOLLOW UP WITH PRIMARY CARE PHYSICIAN OUTLINED ABOVE. Total Time Total Time Spent Total Time Spent (In Minutes): 60 minutes
== END 2024-10-28 16:27 | disposition home or self-care (01) | DRG 897 ==
LOC: ED 19:18 → INTOOBSV 10-26 00:16 → EDINP 10-26 00:16 → 4W 10-26 01:12

== ENCOUNTER 2024-12-02 21:27 | Inpatient (IN) ==
--- NOTE | 2024-12-02 21:51 | Emergency Department Note ---
Impression & Plan Hypoxia, Acute alcohol intoxication with alcoholism with delirium ED Provider Note NAME: CORDELL BRIGGS AGE: 54 SEX: M : 1970 ARRIVES VIA: Walk-In INFORMANT: Patient ED PROVIDER(S): Dae Glover DO CHIEF COMPLAINT: Alcohol intoxication HPI: Patient is a 54-year-old male with a past medical history of depression, anxiety, alcohol abuse who presents to the ER for alcohol intoxication. He was brought in by his who provides majority of history. She notes that he has been drinking since this morning. He drank a full bottle of vodka today. There was no trauma. She notes he was slurring his words and he could not stand or get up and consequently she brought him in. He denies all complaints. They would like him to go to rehab but notes that he never agrees to this. He notes he is not going to go. He denies any suicidal or homicidal ideations. ADDITIONAL HISTORY OBTAINED: Per HPI Chronic Medical/Social Conditions Affecting Care: Per HPI PAST MEDICAL HISTORY:See Below PAST SURGICAL HISTORY:See Below FAMILY HISTORY:See Below SOCIAL HISTORY:See Below HOME MEDICATIONS:See Below ALLERGIES:See Below VITALS:See Below PHYSICAL EXAMINATION: GENERAL: Sitting up in bed, alert, smell of alcohol breath, slurring his words, visibly intoxicated EYE EXAM: normal conjunctiva. PERRL and EOM's grossly intact. OROPHARYNX: no exudate, no erythema, lips, buccal mucosa, and tongue normal and mucous membranes are moist NECK: supple, no nuchal rigidity, no adenopathy, non-tender LUNGS: Clear to auscultation. Normal chest wall mechanics HEART: no murmurs, S1 normal and S2 normal ABDOMEN: abdomen soft, non-tender, normo-active bowel sounds, no masses, no rebound or guarding. UPPER EXTREMITIES: upper extremities are grossly normal. LOWER EXTREMITIES: No pitting edema. NEURO EXAM: Awake oriented to person and place slurring his words moving both upper and lower extremities MEDICAL DECISION MAKING: Patient is a 54-year-old male who presents ER for the above-stated complaint. IV was established and blood work is obtained. Labs showed no significant leukocytosis. No anemia. BMP with LFTs and bilirubin was unremarkable with exception of a slight elevation in his LFTs of 80-90. Do favor this secondary to his alcohol abuse. Lipase was normal. Alcohol was elevated at nearly 460. He was placed on 7 L via oxy mask as he was found to be hypoxic. He was protecting his airway. He was able to cough on command and stick out his tongue. Chest x-ray showed enlarged cardiac silhouette. Patient remained on nasal cannula. He was given thiamine and folate IV. Case was discussed with the hospitalist for further evaluation management treatment. When he wakes up tomorrow if it is during the day his brother will have to pick him up. His number is [phone] and his name is Vargas. Overnight his will be available to pick him up but she is leaving town in the morning. He is nonfocal on exam and nothing is consistent with CVA. No signs of trauma and reports patient has had no trauma and consequently we will defer any additional imaging. Consults/Care Managements Discussions: Per [facility] Triage Nursing notes reviewed. Limited review of prior medical records performed Vital Signs: reviewed and remarkable for no significant abnormalities Differential diagnosis: Infection, dehydration, metabolic abnormality, hypo/hyperglycemia, electrolyte disturbance, anemia, hypoxia, cardiac sources, intracerebral event, toxicologic, neurologic, as well as other pathologies. ER treatment provided: See below Diagnostics interpreted by me include EKG and cardiac monitoring as listed below: -Cardiac Monitoring: An order was placed for continuous cardiac monitoring. The monitor shows a rate of 85 with sinus rhythm. -ECG: none -Laboratory studies:Interpreted by me as stated above in MDM and shown below. Imaging studies: Xrays: As interpreted by me: Portable AP upright 1 view of the chest shows no focal trait CTs show: none Procedures:none Critical Care: I have personally spent 33 minutes of critical care time in the direct management of this patient. This includes bedside care, interpretation of diagnostic studies, and testing, discussion with consultants, patient, and family members, and other required patient management activities. This 33 minutes is in excess of all separately billable procedures. Past Med/Surg History Problem List (Updated 12/02/24 @ 23:17 by Dae Glover DO) Hypoxia (Acute) Hypertension (Acute) Acute alcohol intoxication (Acute) Depression Generalized anxiety disorder Alcohol use disorder Acute hypoxic respiratory failure (Acute) Elevated lactic acid level (Acute) Acute encephalopathy (Acute) Acute hypokalemia (Acute) Acute alcohol intoxication with alcoholism with delirium (Acute) Acute alteration in mental status (Acute) Alcohol intoxication (Acute) Hypertension Medical History Hypomagnesemia Alcohol abuse Transient vision disturbance of right eye Social History Smoking Status: Never smoker Tobacco Type: Cigarettes Hx Alcohol Use: Yes Alcohol type: beer and hard liquor Hx Substance Use: No Preferred Language: Tajik Communication Ability: Effective Store Gift Wrap Associate Required: No Beliefs That Will Affect Care: None marital status: Current Living Situation: Spouse and Family current occupational status: employed Feels Safe at Home: Yes Assistive Devices: None Allergies Allergies Allergy/AdvReac Type Severity Reaction Status Date / Time No Known Allergies Allergy Mild Verified 11/21/24 21:25 Home Meds Home Medications Medication Instructions Recorded Confirmed atenolol 25 mg tablet 25 mg PO QAM 12/02/24 12/02/24 disulfiram 250 mg tablet 250 mg PO QAM 12/02/24 12/02/24 folic acid 1 mg tablet 1 mg PO QAM 12/02/24 12/02/24 hydroxyzine HCl 50 mg tablet 50 mg PO HS 12/02/24 12/02/24 thiamine HCl (vitamin B1) 100 mg 100 mg PO QAM 12/02/24 12/02/24 tablet Results & Data (ED) Vital Signs Vital Signs - 24 hr 12/02/24 21:30 12/02/24 21:39 12/02/24 21:39 Temperature 36.8 C Temperature Source Temporal Artery Scan Pulse Rate 100 H Pulse Rate [Apical] Pulse Rhythm Regular Pulse Strength Normal Respiratory Rate 20 Respiratory Effort / Characteristics Non-Labored Spontaneous Respiratory Depth Normal Respiratory Pattern Regular Blood Pressure 138/91 Blood Pressure [Left Arm] Blood Pressure Mean 106 Blood Pressure Mean [Left Arm] Blood Pressure Position Sitting Pulse Oximetry 92 88 L Oxygen Delivery Method Room Air Oxymask Oxymask Oxygen Flow Rate 0 Sepsis Recent Fever Within 48 Hours No Sepsis New/Unexplained Change in Mental Status No Sepsis Action Taken by Nursing No Action Required Oxygen Flow Rate - Titration 7 Pulse Oximetry Post Tiitration 94 12/02/24 23:00 Temperature Temperature Source Pulse Rate Pulse Rate [Apical] 87 Pulse Rhythm Pulse Strength Respiratory Rate 16 Respiratory Effort / Characteristics Respiratory Depth Respiratory Pattern Blood Pressure Blood Pressure [Left Arm] 123/80 Blood Pressure Mean Blood Pressure Mean [Left Arm] 94 Blood Pressure Position Pulse Oximetry 94 Oxygen Delivery Method Oxymask Oxygen Flow Rate 7 Sepsis Recent Fever Within 48 Hours Sepsis New/Unexplained Change in Mental Status Sepsis Action Taken by Nursing Oxygen Flow Rate - Titration Pulse Oximetry Post Tiitration Laboratory Data 12/02/24 21:39 12/02/24 21:39 Lab Results 12/02/24 Range/Units 21:39 WBC 5.56 (4.8-10.8) K/ul RBC 4.25 L (4.70-6.10) M/uL Hgb 13.8 L (14.0-18.0) g/dl Hct 40.1 L (42.0-52.0) % MCV 94.4 (80.0-100.0) fL MCH 32.5 (25.0-34.0) pg MCHC 34.4 (32.0-36.0) g/dL RDW Std Deviation 53.5 H (36.4-46.3) fL RDW Coeff of Abel 15.5 H (11.5-14.5) % Plt Count 238 (130-400) K/uL MPV 8.6 L (9.4-12.4) fL Neutrophils % (Manual) 34 % Lymphocytes % (Manual) 31 % Monocytes % (Manual) 4 % Eosinophils % (Manual) 4 % Basophils % (Manual) 2 % Neutrophils # (Manual) 1.89 (1.40-6.50) K/uL Total Absolute Neuts 1.89 (1.4-6.5) K/uL Lymphocytes # (Manual) 1.72 (1.2-3.4) K/uL Total Abs Lymphocytes 3.11 (1.2-3.4) K/uL Monocytes # (Manual) 0.22 (0.11-0.59) K/uL Eosinophils # (Manual) 0.22 (0-0.50) K/uL Basophils # (Manual) 0.11 (0-0.2) K/uL Large Granular Lymphs 25 % # Lrg Granular Lymphs 1.39 K/uL Sodium 143 (136-145) mmol/L Potassium 3.5 (3.5-5.1) mmol/L Chloride 107 (98-107) mmol/L Carbon Dioxide 27 (21-32) mmol/L Anion Gap 9 (3-11) BUN 10 (6-23) mg/dl Creatinine 0.89 (0.6-1.4) mg/dl Est Cr Clr Drug Dosing 116.0 ml/min eGFR 101.84 BUN/Creatinine Ratio 11.2 (10-20) Glucose 118 H (70-99(Fasting)) mg/dl Calcium 8.4 L (8.6-10.3) mg/dl Magnesium 2.0 (1.7-2.4) mg/dl Total Bilirubin 0.5 (0.2-1.0) mg/dl AST 81 H (13-39) U/L ALT 99 H (7-52) U/L Alkaline Phosphatase 73 (34-104) U/L Total Protein 7.1 (6.0-8.3) gm/dl Albumin 4.0 (3.4-5.0) gm/dl Globulin 3.1 (2.5-4.0) gm/dl Albumin/Globulin Ratio 1.3 (0.9-2) Lipase 13 (11-82) U/L Ethyl Alcohol mg/dL 455.1 H (<10.0) mg/dl Imaging Data Radiologist's Impression: Chest X-Ray 12/02/24 21:51 Exam(s): XR CXR 1 VIEW EXAM: XR Chest, 1 View CLINICAL HISTORY: Reason for exam: hypoxia. TECHNIQUE: Frontal view of the chest. COMPARISON: Chest x-ray 10/25/2024 FINDINGS: Lungs: Bibasilar atelectasis. No consolidation or interstitial edema. Pleural space: No pleural effusion. No pneumothorax. Heart: Unremarkable. No cardiomegaly. Bones/joints: Chronic fracture deformities in the ribs on the left. IMPRESSION: Bibasilar atelectasis. No consolidation or interstitial edema. Electronically signed by: Terry Alford MD 12/02/24 22:36 PM Discharge Plan Visit Data Chief Complaint: Alcohol Intoxication Stated Complaint: ALCOHOL LEVEL ED Provider: Dae Glover Discharge Problem: Hypoxia, Acute alcohol intoxication with alcoholism with delirium Condition: Serious Forms Stand Alone Forms: My [facility] [place] [employer] Prescriptions Prescriptions: No Action atenolol 25 mg tablet 25 mg PO QAM thiamine HCl (vitamin B1) 100 mg tablet 100 mg PO QAM hydroxyzine HCl 50 mg tablet 50 mg PO HS disulfiram 250 mg tablet 250 mg PO QAM folic acid 1 mg tablet 1 mg PO QAM Referrals Referrals: Vida Hernandez DO [Primary Care Provider] -
[2024-12-02 21:52] LABS: Hematocrit (blood only) 40.1 % (42.0-52.0); Hemoglobin 13.8 g/dl (14.0-18.0); Mean Corpuscular Hemoglobin 32.5 pg (25.0-34.0); Mean Corpuscular Volume 94.4 fL (80.0-100.0); Platelet Count 238 K/uL (130-400); RDW Standard Deviation 53.5 fL (36.4-46.3); Red Blood Count 4.25 M/uL (4.70-6.10); White Blood Count 5.56 K/ul (4.8-10.8)
[2024-12-02 22:10] LABS: Alanine Aminotransferase 99.0 U/L (7-52); Albumin Globulin Ratio 1.3 (0.9-2); Albumin Level 4.0 gm/dl (3.4-5.0); Alkaline Phosphatase 73.0 U/L (34-104); Anion Gap 9.0 (3-11); Bilirubin,Total 0.5 mg/dl (0.2-1.0); Blood Urea Nitrogen 10.0 mg/dl (6-23); Calcium 8.4 mg/dl (8.6-10.3); Carbon Dioxide 27.0 mmol/L (21-32); Chloride 107.0 mmol/L (98-107); Creatinine Clr Calc Pharmacy 116.0 ml/min; Globulin 3.1 gm/dl (2.5-4.0); Glucose 118.0 mg/dl (70-99(Fasting)); Lipase 13.0 U/L (11-82); Potassium 3.5 mmol/L (3.5-5.1); Sodium 143.0 mmol/L (136-145); Total Protein 7.1 gm/dl (6.0-8.3)
--- NOTE | 2024-12-02 22:36 | XRay Report ---
Exam(s): XR CXR 1 VIEW EXAM: XR Chest, 1 View CLINICAL HISTORY: Reason for exam: hypoxia. TECHNIQUE: Frontal view of the chest. COMPARISON: Chest x-ray 10/25/2024 FINDINGS: Lungs: Bibasilar atelectasis. No consolidation or interstitial edema. Pleural space: No pleural effusion. No pneumothorax. Heart: Unremarkable. No cardiomegaly. Bones/joints: Chronic fracture deformities in the ribs on the left. IMPRESSION: Bibasilar atelectasis. No consolidation or interstitial edema. Electronically signed by: Terry Alford MD 12/02/24 22:36 PM
[2024-12-02 22:43] LABS: ALC (manual) 3.11 K/uL (1.2-3.4); ANC (manual) 1.89 K/uL (1.4-6.5); Large Granular Lymph # (manua 1.39 K/uL; Large Granular Lymph % (manual) 25 %
--- NOTE | 2024-12-02 22:54 | History & Physical Report ---
Date of Service December 02, 2024 Assessment & Plan (1) Acute hypoxemic respiratory failure: Plan: Assessment and plan below following discussion of case with ED provider and reviewing patient history/pertinent normal/abnormal diagnostic test results. Acute hypoxemic respiratory failure Atelectasis on chest x-ray Alcohol abuse hypertension, slightly elevated New onset anemia, no obvious source of bleed, FOBT done at ER was negative Alcoholic hepatitis, likely low Maddrey's DF score with normal coags mood disorder, stable as per patient Admit to med/tele Supplemental O2 Baseline VBG Incentive spirometry CT chest if with persistent hypoxemia ABELARDO S at risk protocol, DT precautions Anemia workup DVT prophylaxis. Lovenox subcu Full code Patient requesting updates providers. Ms. Montero UyenIsa, contact #[phone]. Text document was generated using [employer] voice recognition software. It may contain grammatical or spelling errors. Kindly contact undersigned for clarification of any documentation item in question. History of Present Illness Chief Complaint: I do not know as per patient Alcohol intoxication as per records Primary Care Provider: Vida Hernandez, History obtained from patient and records. Medical history significant for hypertension, PVCs, GERD, mood disorder, alcohol abuse. Recent confinement last month for alcohol withdrawal. Patient seen by psychiatry during confinements Patient Lexapro increasing dose, nightly hydroxyzine to regimen. Patient declined inpatient alcohol rehab program. Recent ER visit 2 weeks ago for hypertension and word finding difficulty in the setting of alcohol intake. CT imaging negative for stroke. Patient declined admission recommendation. Patient slurring his words and could not get up from alcohol intake today as per . Patient brought to ER for evaluation. Patient does not know why he was brought to the emergency room. Denies headache, chest pain, SOB, cough, abdominal pain, black/bloody stools, hematuria. Lowest O2 sats of 80s documented at the ER. Medical History as above Surgical History : None Family History : Heart disease Personal/Social history : Non-smoker, alcohol abuse, [employer] employee Allergies Allergy/AdvReac Type Severity Reaction Status Date / Time No Known Allergies Allergy Mild Verified 11/21/24 21:25 Home Medications Medication Instructions Recorded Confirmed Type atenolol 25 mg tablet 25 mg PO QAM 12/02/24 12/02/24 History disulfiram 250 mg tablet 250 mg PO QAM 12/02/24 12/02/24 History folic acid 1 mg tablet 1 mg PO QAM 12/02/24 12/02/24 History hydroxyzine HCl 50 mg tablet 50 mg PO HS 12/02/24 12/02/24 History thiamine HCl (vitamin B1) 100 mg 100 mg PO QAM 12/02/24 12/02/24 History tablet Past Med/Surg History Problem List (Updated 12/03/24 @ 03:30 by Jose Troncoso MD) Acute hypoxemic respiratory failure Hypoxia (Acute) Hypertension (Acute) Acute alcohol intoxication (Acute) Depression Generalized anxiety disorder Alcohol use disorder Acute hypoxic respiratory failure (Acute) Elevated lactic acid level (Acute) Acute encephalopathy (Acute) Acute hypokalemia (Acute) Acute alcohol intoxication with alcoholism with delirium (Acute) Acute alteration in mental status (Acute) Alcohol intoxication (Acute) Hypertension Medical History Hypomagnesemia Alcohol abuse Transient vision disturbance of right eye Social History Smoking Status: Never smoker Tobacco Type: Cigarettes Hx Alcohol Use: Yes Alcohol type: beer and hard liquor Hx Substance Use: No Preferred Language: Croatian Communication Ability: Effective Wool Shearing Supervisor Required: No Beliefs That Will Affect Care: None marital status: Current Living Situation: Spouse and Family current occupational status: employed Feels Safe at Home: Yes Assistive Devices: None Review of Systems Review of Systems: As per HPI, all other systems reviewed and negative Physical Exam Physical Exam: GENERAL: Comfortable, obese, pleasant, intoxicated, occasional stuttering (chronic as per patient), no respiratory distress SKIN: Normal color, warm HEENT: [place] palpebral conjunctivae, no ptosis, dry buccal mucosa NECK : Supple, no tenderness CHEST : CTA, no tenderness HEART : RRR, no obvious murmurs ABDOMEN: Some distention, nontender RECTAL : Intact sphincter, brown stool (FOBT negative) EXTREMITIES : No LE swelling/tenderness, palpable pulses, no other conspicuous deformities noted NEUROLOGIC : Coherent, no facial asymmetry, occasional stuttering, no other gross focality Results & Data Results & Data Vital Signs (Past 12 Hours) Vital Signs Temp Pulse Resp BP Pulse Ox O2 Del Method O2 Flow Rate 12/02/24 21:39 88 L Oxymask 0 12/02/24 21:39 Oxymask 12/02/24 21:30 36.8 C 100 H 20 138/91 92 Room Air Laboratory Results Laboratory Results WBC 5.56 K/ul (4.8-10.8) 12/02/24 21:39 RBC 4.25 M/uL (4.70-6.10) L 12/02/24 21:39 Hgb 13.8 g/dl (14.0-18.0) L 12/02/24 21:39 Hct 40.1 % (42.0-52.0) L 12/02/24 21:39 MCV 94.4 fL (80.0-100.0) 12/02/24 21: MCH 32.5 pg (25.0-34.0) 12/02/24 21: MCHC 34.4 g/dL (32.0-36.0) 12/02/24 21:39 RDW Std Deviation 53.5 fL (36.4-46.3) H 12/02/24 21:39 RDW Coeff of Abel 15.5 % (11.5-14.5) H 12/02/24 21:39 Plt Count 238 K/uL (130-400) 12/02/24 21:39 MPV 8.6 fL (9.4-12.4) L 12/02/24 21:39 Neutrophils % (Manual) 34 % 12/02/24 21:39 Lymphocytes % (Manual) 31 % 12/02/24 21:39 Monocytes % (Manual) 4 % 12/02/24 21:39 Eosinophils % (Manual) 4 % 12/02/24 21:39 Basophils % (Manual) 2 % 12/02/24 21:39 Neutrophils # (Manual) 1.89 K/uL (1.40-6.50) 12/02/24 21:39 Total Absolute Neuts 1.89 K/uL (1.4-6.5) 12/02/24 21:39 Lymphocytes # (Manual) 1.72 K/uL (1.2-3.4) 12/02/24 21:39 Total Abs Lymphocytes 3.11 K/uL (1.2-3.4) 12/02/24 21:39 Monocytes # (Manual) 0.22 K/uL (0.11-0.59) 12/02/24 21:39 Eosinophils # (Manual) 0.22 K/uL (0-0.50) 12/02/24 21:39 Basophils # (Manual) 0.11 K/uL (0-0.2) 12/02/24 21:39 Large Granular Lymphs 25 % 12/02/24 21:39 # Lrg Granular Lymphs 1.39 K/uL 12/02/24 21:39 Sodium 143 mmol/L (136-145) 12/02/24 21:39 Potassium 3.5 mmol/L (3.5-5.1) 12/02/24 21:39 Chloride 107 mmol/L (98-107) 12/02/24 21:39 Carbon Dioxide 27 mmol/L (21-32) 12/02/24 21:39 Anion Gap 9 (3-11) 12/02/24 21:39 BUN 10 mg/dl (6-23) 12/02/24 21:39 Creatinine 0.89 mg/dl (0.6-1.4) 12/02/24 21:39 Est Cr Clr Drug Dosing 116.0 ml/min 12/02/24 21:39 eGFR 101.84 12/02/24 21:39 BUN/Creatinine Ratio 11.2 (10-20) 12/02/24 21:39 Glucose 118 mg/dl (70-99(Fasting)) H 12/02/24 21:39 Calcium 8.4 mg/dl (8.6-10.3) L 12/02/24 21:39 Total Bilirubin 0.5 mg/dl (0.2-1.0) 12/02/24 21:39 AST 81 U/L (13-39) H 12/02/24 21:39 ALT 99 U/L (7-52) H 12/02/24 21:39 Alkaline Phosphatase 73 U/L (34-104) 12/02/24 21:39 Total Protein 7.1 gm/dl (6.0-8.3) 12/02/24 21:39 Albumin 4.0 gm/dl (3.4-5.0) 12/02/24 21:39 Globulin 3.1 gm/dl (2.5-4.0) 12/02/24 21:39 Albumin/Globulin Ratio 1.3 (0.9-2) 10/15/25 21:39 Lipase 13 U/L (11-82) 12/02/24 21:39 Ethyl Alcohol mg/dL 455.1 mg/dl (<10.0) H 12/02/24 21:39 Impressions Chest X-Ray 12/02/24 21:51 Exam(s): XR CXR 1 VIEW EXAM: XR Chest, 1 View CLINICAL HISTORY: Reason for exam: hypoxia. TECHNIQUE: Frontal view of the chest. COMPARISON: Chest x-ray 10/25/2024 FINDINGS: Lungs: Bibasilar atelectasis. No consolidation or interstitial edema. Pleural space: No pleural effusion. No pneumothorax. Heart: Unremarkable. No cardiomegaly. Bones/joints: Chronic fracture deformities in the ribs on the left. IMPRESSION: Bibasilar atelectasis. No consolidation or interstitial edema. Electronically signed by: Terry Alford MD 12/02/24 22:36 PM
[2024-12-02 23:10] LABS: Magnesium 2.0 mg/dl (1.7-2.4)
[2024-12-02] MEDS ORDERED: ACETAMINOPHEN 500 MG TAB PO PRN (23:12)
[2024-12-02 23:26] LABS: INR 1.0 (0.9-1.1); Prothrombin Time 10.9 Seconds (9.0-12.0)
[2024-12-02] MEDS: LACTATED RINGER'S 1,000 ML IV STA (23:53)
[2024-12-02] MEDS: FOLIC ACID 1 MG in SYRINGE 9.8 ML IV STA (23:53)
[2024-12-02] MEDS: THIAMINE HCL 100 MG in SYRINGE 9 ML IV STA (23:53)
[2024-12-03 00:48] LABS: Base Excess VBG 2.9 mEq/L; HCO3 VBG 30 mmol/L; Oxygen Saturation VBG 89.3 %; PCO2 VBG 54 mmHg (38-50); PO2 VBG 62 mmHg; pH VBG 7.35 (7.36-7.41)
[2024-12-03 00:53] LABS: Hematocrit (blood only) 40.0 % (42.0-52.0); Hemoglobin 13.6 g/dl (14.0-18.0); Reticulocytes # 0.130 10^6/uL (0.020-0.100)
[2024-12-03 01:08] LABS: Iron 140.0 mcg/dl (35-175); Transferrin 244.0 mg/dl (200-360)
[2024-12-03 01:29] LABS: Ferritin 215.0 ng/ml (8-388)
[2024-12-03 01:34] LABS: Folate (Folic Acid),Ser orPlas 11.03 ng/ml (>5.38)
[2024-12-03 01:35] LABS: Vitamin B12 178.0 pg/ml (180-914)
[2024-12-03] MEDS: OPTIRAY 320 125ml IV ONE (04:10)
[2024-12-03 04:23] LABS: Base Excess VBG 0.5 mEq/L; HCO3 VBG 27 mmol/L; Oxygen Saturation VBG 94.1 %; PCO2 VBG 50 mmHg (38-50); PO2 VBG 69 mmHg; pH VBG 7.34 (7.36-7.41)
[2024-12-03 04:31] LABS: Hematocrit (blood only) 38.7 % (42.0-52.0); Hemoglobin 13.6 g/dl (14.0-18.0); Mean Corpuscular Hemoglobin 33.5 pg (25.0-34.0); Mean Corpuscular Volume 95.3 fL (80.0-100.0); Platelet Count 229 K/uL (130-400); RDW Standard Deviation 53.1 fL (36.4-46.3); Red Blood Count 4.06 M/uL (4.70-6.10); White Blood Count 4.25 K/ul (4.8-10.8)
[2024-12-03 04:44] LABS: Alanine Aminotransferase 88.0 U/L (7-52); Albumin Globulin Ratio 1.3 (0.9-2); Albumin Level 3.7 gm/dl (3.4-5.0); Alkaline Phosphatase 69.0 U/L (34-104); Anion Gap 9.0 (3-11); Bilirubin,Total 0.5 mg/dl (0.2-1.0); Blood Urea Nitrogen 9.0 mg/dl (6-23); Calcium 7.9 mg/dl (8.6-10.3); Carbon Dioxide 27.0 mmol/L (21-32); Chloride 108.0 mmol/L (98-107); Creatinine Clr Calc Pharmacy 132.3 ml/min; Globulin 2.9 gm/dl (2.5-4.0); Glucose 93.0 mg/dl (70-99(Fasting)); Potassium 3.6 mmol/L (3.5-5.1); Sodium 144.0 mmol/L (136-145); Total Protein 6.6 gm/dl (6.0-8.3)
[2024-12-03 04:50] LABS: Immature Granulocytes # (auto) 0.01 K/uL (0.01-0.20); Immature Granulocytes % (auto) 0.2 %; Polychromasia 1+
--- NOTE | 2024-12-03 05:11 | CT Scan Report ---
EXAM: CT angio chest PE protocol CLINICAL HISTORY: low o2 TECHNIQUE: Contiguous axial images were obtained from the base of the neck through the upper abdomen following intravenous administration of iodinated contrast material. Angiographic images were processed, and 3D MIP images were acquired for interpretation. If IV contrast material had not been administered, the likelihood of detecting abnormalities relevant to the patient's condition would have been substantially decreased. Coronal and sagittal 3D MIPs were likewise performed and indicated to increase the sensitivity of detecting diffuse, clinically relevant pathology. The CT scan was performed according to ALARA (as low as reasonably achievable). COMPARISON: None. FINDINGS: Left diaphragmatic eventration causes passive subsegmental atelectasis of the left basal segments. Diffuse, smooth interlobular septal thickening is noted involving both lungs, suggestive of pulmonary congestion. Mild dilatation of the pulmonary trunk and bilateral main pulmonary arteries up to the subsegmental level with mild tortuosity suggests the possibility of pulmonary arterial hypertension. Few atelectatic bands are noted involving the bilateral lung bases. There is an adequate contrast bolus without evidence of pulmonary embolism. The central airways are patent. The remainder of the lungs is clear. No pleural effusion. The heart, aorta, and pulmonary arteries are of normal size and configuration. There are coronary artery and aortic atherosclerotic calcifications. No pericardial effusion is identified. The thyroid is unremarkable. No mediastinal, hilar, or axillary lymphadenopathy is noted. No suspicious lytic or sclerotic osseous lesions are identified. IMPRESSION: Left diaphragmatic eventration causes passive subsegmental atelectasis of the left basal segments. Diffuse, smooth interlobular septal thickening is noted involving both lungs, suggestive of pulmonary congestion. Mild dilatation of the pulmonary trunk and bilateral main pulmonary arteries up to the subsegmental level with mild tortuosity suggests the possibility of pulmonary arterial hypertension. Few atelectatic bands are noted involving the bilateral lung bases. No obvious pulmonary embolism. Electronically signed by Roddy Stinson 12-03-2024 05:10 AM
[2024-12-03] MEDS: PROMETHAZINE 6.25 MG/50.25 ML BAG IV PRN (08:07)
[2024-12-03] MEDS: POTASSIUM CHLORIDE CRTAB 20 MEQ TABCR PO STA (08:18)
[2024-12-03] MEDS: FUROSEMIDE INJ 20 MG/2 ML VIAL IV ONE (08:18)
[2024-12-03] MEDS: ENOXAPARIN INJ 40 MG/0.4 ML SYR SQ SCH (08:19)
[2024-12-03] MEDS: FOLIC ACID 1 MG TAB PO SCH (08:19)
[2024-12-03] MEDS: THIAMINE HCL 100 MG TAB PO SCH (08:19)
[2024-12-03] MEDS: ATENOLOL 25 MG TABLET PO SCH (08:19)
[2024-12-03] MEDS: MULTIVITAMIN TAB PO SCH (08:20)
[2024-12-03] MEDS: LORazepam Inj 1 MG in SYRINGE 0.5 ML IV PRN ×2 (08:32→11:57)
[2024-12-03] MEDS: LORazepam 1 MG/1 ML SYR ED Inj Use ONE ×2 (08:34→11:58)
[2024-12-03 09:04] LABS: Appearance Urine Clear (Clear); Glucose Urine UA Negative (Negative)
[2024-12-03] MEDS ORDERED: LORazepam Inj 3 MG in SYRINGE 1.5 ML IV PRN (11:08)
[2024-12-03] MEDS ORDERED: chlordiazePOXIDE ALCOHOL WITHDRAWL 25MG PO STA (11:08)
[2024-12-03] MEDS: GABAPENTIN 1200MG ALCOHOL WITHDRAWAL LOAD PO STA (11:59)
[2024-12-03 12:52] VITALS: RESP 18
--- NOTE | 2024-12-03 15:29 | Hospitalist Progress Note ---
Date of Service December 03, 2024 Assessment & Plan (1) Acute hypoxemic respiratory failure: Plan: Assessment and plan below following discussion of case with ED provider and reviewing patient history/pertinent normal/abnormal diagnostic test results. Acute hypoxemic respiratory failure Pulmonary Congestion Pulmonary Hypertension CT chest: Left diaphragmatic eventration causes passive subsegmental atelectasis of the left basal segments. Diffuse, smooth interlobular septal thickening is noted involving both lungs, suggestive of pulmonary congestion. Mild dilatation of the pulmonary trunk and bilateral main pulmonary arteries up to the subsegmental level with mild tortuosity suggests the possibility of pulmonary arterial hypertension. Few atelectatic bands are noted involving the bilateral lung bases. No obvious pulmonary embolism. Echo: EF normal, no note of Diastolic Dysfunction BNP 100s received Lasix 20mg IV early AM currently down to 2L NC Pulmonology Service consulted Alcohol abuse - AWSS score 8 per SENIOR MEDIA PLANNER - Alcohol Withdrawal Protocol ordered including Librium taper and PRN Ativan patient still declining to go to inpatient Alcohol Rehab hypertension - PRN Hydralazine continue usual Atenolol New onset anemia, no obvious source of bleed, FOBT done at ER was negative - Iron 140 Vit B 12: 178--> start Vit b12 supplement Folate 11.03 Alcoholic hepatitis, likely low Maddrey's DF score with normal coags - monitor LFTs mood disorder, stable as per patient DVT prophylaxis. Lovenox subcu Full code Admission and Anticipated Discharge Date Admission Date: December 02, 2024 Subjective seen resting in bed, on 2L NC, comfortable family visiting- patient ok for them to be present during my exam alert, oriented x 3, answering questions appropriately states he feels ok overall states breathing is better denies cough, fever/chills, shortness of breath at home denies tremors, anxiety, confusion no other symptoms Review of Systems Review of Systems: all noted and negative except for above Physical Exam Physical Exam: General- oriented x 3, not in distress, speaks in sentences with no effort or accessory muscle use Eyes- anicteric Neck- no JVD Lungs- clear breath sounds bilaterally, no rales/wheezes Heart- normal rate, regular rhythm; no murmurs Abdomen- normal bowel sounds, nondistended, soft, nontender Extremities- no pretibial edema, no calf tenderness no tremors Neuro- alert, oriented x 3; no gross focal neurologic deficits Skin- warm & dry Results & Data Results & Data Vital Signs (Past 12 Hours) Vital Signs Temp Pulse Pulse Pulse Resp BP BP 12/03/24 15:17 37.0 C 96 H 18 162/98 H 12/03/24 15:00 169/98 H 12/03/24 12:51 36.8 C 98 H 18 172/114 H 12/03/24 12:44 12/03/24 11:49 36.6 C 96 H 22 165/109 H 12/03/24 11:09 100 H 22 164/109 H 12/03/24 08:24 115 H 22 176/109 H 12/03/24 08:15 36.9 C 122 H 18 176/109 H 12/03/24 06:53 105 H 12/03/24 04:22 102 H 19 154/98 H 12/03/24 03:39 12/03/24 03:22 95 H 14 148/96 H Pulse Ox O2 Del Method O2 Flow Rate 12/03/24 15:17 94 Nasal Cannula 2 12/03/24 15:00 95 Room Air 2 12/03/24 12:51 97 Nasal Cannula 3 12/03/24 12:44 Nasal Cannula 3 12/03/24 11:49 95 Nasal Cannula 3 12/03/24 11:09 94 Nasal Cannula 3 12/03/24 08:24 92 Nasal Cannula 3 12/03/24 08:15 92 Nasal Cannula 3 12/03/24 06:53 12/03/24 04:22 95 Oxymask 7 12/03/24 03:39 89 L Oxymask 6 12/03/24 03:22 92 Oxymask 6 all noted and reviewed including below
[2024-12-03] MEDS: LORazepam Inj 0.5 MG in SYRINGE 0.25 ML IV PRN (16:09)
--- NOTE | 2024-12-03 16:53 | Pulmonary Consultation ---
Date of Consultation December 03, 2024 Assessment & Plan (1) Acute alcohol intoxication: Complication of substance-induced condition: uncomplicated Qualified Code(s): F10.920 - Alcohol use, unspecified with intoxication, uncomplicated Plan When I examined the patient he is on room air. He does not have any underlying pulmonary history. Echocardiogram does not show evidence of pulmonary hypert ension. There may be a little bit of pulmonary edema based on the CT imaging however he is asymptomatic. He is a lifetime non-smoker, does not cough or wheeze. Does not use inhalers. No further workup recommended for hypoxic respiratory failure as patient is on room air. Continue treatment for alcohol withdrawal. Recommend thiamine supplementation. Recommend addiction counseling. If patient develops worsening withdrawal could use phenobarbital. Thank you for this consult. I will sign off. History of Present Illness Reason for Consultation: Hypoxic respiratory failure, pulmonary hypertension Requesting Physician: Nicolas العراقي MD Attending Physician: Nicolas العراقي MD History of Present Illness Patient is a 54-year-old male who presented to the hospital for evaluation of alcohol intoxication. Per patient conversation and according to the chart the patient was brought into the emergency department by his on 12/02/2024. The patient states that his brought him into the ER because he was drinking and she wanted him evaluated. The patient has a known history of alcohol abuse. He is he says that he drinks heavily and has done so for the past 5 years. He has been hospitalized in the past for alcohol withdrawal. He denies any history of alcohol withdrawal seizures. He denied any shortness of breath, cough or acute respiratory symptoms. In the emergency department the patient was found to be hypoxic and hypertensive. CT imaging of the chest was obtained with CT angio which did not show evidence of PE, there was intralobular septal thickening and a dilated pulmonary artery suggestive of pulmonary hypertension. Atelectasis appreciated on the left with elevated left hemidiaphragm. Upon review of previous imaging the elevated left hemidiaphragm is a chronic finding for him. The patient was admitted to the hospital and alcohol withdrawal treatment was initiated. The patient was requiring oxygen. Pulmonary was consulted for hypoxic respiratory failure and pulmonary hypertension. The patient also had an echocardiogram performed which did not suggest any evidence of pulmonary hypertension. There was concentric LVH noted with normal EF. When examined the patient today he is resting comfortably on room air. He denies any shortness of breath. He denies cough. He is a lifetime non-smoker. Lungs are clear to auscultation without wheezing. He denies any known pulmonary disorders including asthma or COPD. Allergies Allergy/AdvReac Type Severity Reaction Status Date / Time No Known Allergies Allergy Mild Verified 11/21/24 21:25 Home Medications Medication Instructions Recorded Confirmed Type atenolol 25 mg tablet 25 mg PO QAM 12/02/24 12/02/24 History disulfiram 250 mg tablet 250 mg PO QAM 12/02/24 12/02/24 History folic acid 1 mg tablet 1 mg PO QAM 12/02/24 12/02/24 History hydroxyzine HCl 50 mg tablet 50 mg PO HS 12/02/24 12/02/24 History thiamine HCl (vitamin B1) 100 mg 100 mg PO QAM 12/02/24 12/02/24 History tablet Patient History Medical History Hypomagnesemia Alcohol abuse Transient vision disturbance of right eye Social History Smoking Status: Former smoker Tobacco Type: Cigarettes Second Hand Exposure: No; Do You Dip or Chew Tobacco: No; Hx Alcohol Use: Yes Alcohol type: beer Hx Substance Use: No Preferred Language: Pashto Communication Ability: Effective 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 Physical Exam Physical Exam: Physical examination: General: Well-appearing, well-nourished and not in acute distress. HEENT: Normocephalic, atraumatic. Extraocular movements intact. Sclera are nonicteric. No JVD appreciated. Skin: Warm and dry. No rashes appreciated. No jaundice appreciated. Cardiovascular: Heart is a regular rate and rhythm, no murmurs appreciated on my exam. No significant lower extremity edema. Lungs: Clear bilaterally, no wheezing appreciated. No crackles. Nontachypneic. Resting comfortably on room air. Musculoskeletal: Normal muscle mass and tone. No gross joint deformity abnormalities. No effusions appreciated. Neurologic: Awake and alert, oriented. CN II through XII are grossly intact. Speech is fluent. Nonfocal exam. Psychiatric: Appropriate cooperative during my exam. Results & Data Results & Data Vital Signs (Past 12 Hours) Vital Signs Temp Pulse Pulse Pulse Resp BP BP 12/03/24 15:17 37.0 C 96 H 18 162/98 H 12/03/24 15:00 169/98 H 12/03/24 12:51 36.8 C 98 H 18 172/114 H 12/03/24 12:44 12/03/24 12:43 94 H 12/03/24 11:49 36.6 C 96 H 22 165/109 H 12/03/24 11:09 100 H 22 164/109 H 12/03/24 08:24 115 H 22 176/109 H 12/03/24 08:15 36.9 C 122 H 18 176/109 H 12/03/24 06:53 105 H Pulse Ox O2 Del Method O2 Flow Rate 12/03/24 15:17 94 Nasal Cannula 2 12/03/24 15:00 95 Room Air 2 12/03/24 12:51 97 Nasal Cannula 3 12/03/24 12:44 Nasal Cannula 3 12/03/24 12:43 12/03/24 11:49 95 Nasal Cannula 3 12/03/24 11:09 94 Nasal Cannula 3 12/03/24 08:24 92 Nasal Cannula 3 12/03/24 08:15 92 Nasal Cannula 3 12/03/24 06:53 PG Care Time/CCT Total # of Minutes Spent Total Time Spent with Patient: Total time spent is greater than 50% in coordination of care (as documented) at patient's floor/unit and/or counseling patient: Coding Level of Care Code 84067 IN/OBS CONSULT LVL 3,45M Diagnoses Acute alcohol intoxication F10.920 Complication of substance-induced condition: uncomplicated
[2024-12-03] MEDS: LORazepam Inj 2 MG in SYRINGE 1 ML IV PRN (20:34)
[2024-12-04 07:02] LABS: Hematocrit (blood only) 45.4 % (42.0-52.0); Hemoglobin 15.8 g/dl (14.0-18.0); Immature Granulocytes # (auto) 0.02 K/uL (0.01-0.20); Immature Granulocytes % (auto) 0.4 %; Mean Corpuscular Hemoglobin 32.2 pg (25.0-34.0); Mean Corpuscular Volume 92.7 fL (80.0-100.0); Platelet Count 226 K/uL (130-400); RDW Standard Deviation 51.2 fL (36.4-46.3); Red Blood Count 4.90 M/uL (4.70-6.10); White Blood Count 5.13 K/ul (4.8-10.8)
[2024-12-04 07:21] VITALS: BP 164/107; TEMP 98.2; O2SAT 94
[2024-12-04 07:28] LABS: Alanine Aminotransferase 72.0 U/L (7-52); Albumin Level 3.9 gm/dl (3.4-5.0); Alkaline Phosphatase 84.0 U/L (34-104); Anion Gap 11.0 (3-11); Bilirubin,Total 1.3 mg/dl (0.2-1.0); Blood Urea Nitrogen 12.0 mg/dl (6-23); Calcium 9.2 mg/dl (8.6-10.3); Carbon Dioxide 26.0 mmol/L (21-32); Chloride 100.0 mmol/L (98-107); Creatinine Clr Calc Pharmacy 116.2 ml/min; Glucose 95.0 mg/dl (70-99(Fasting)); Potassium 3.7 mmol/L (3.5-5.1); Sodium 137.0 mmol/L (136-145); Total Protein 7.4 gm/dl (6.0-8.3)
[2024-12-04 07:37] VITALS: PULSE 91
[2024-12-04] MEDS: CYANOCOBALAMIN (B-12) 100 MCG TABLET PO SCH (07:45)
--- NOTE | 2024-12-04 08:33 | Discharge Summary ---
Discharge Summary Date of Service December 04, 2024 Principal Dx & Hospital Course #1 = Principal Diagnosis (1) Acute hypoxemic respiratory failure: Assessment and plan below following discussion of case with ED provider and reviewing patient history/pertinent normal/abnormal diagnostic test results. Acute hypoxemic respiratory failure Pulmonary Congestion Pulmonary Hypertension CT chest: Left diaphragmatic eventration causes passive subsegmental atelectasis of the left basal segments. Diffuse, smooth interlobular septal thickening is noted involving both lungs, suggestive of pulmonary congestion. Mild dilatation of the pulmonary trunk and bilateral main pulmonary arteries up to the subsegmental level with mild tortuosity suggests the possibility of pulmonary arterial hypertension. Few atelectatic bands are noted involving the bilateral lung bases. No obvious pulmonary embolism. Echo: EF normal, no note of Diastolic Dysfunction BNP 100s received Lasix 20mg IV early AM currently down to 2L [place] Pulmonology Service consulted He does not have any underlying pulmonary history. Echocardiogram does not show evidence of pulmonary hypertension. There may be a little bit of pulmonary edema based on the CT imaging however he is asymptomatic. He is a lifetime non-smoker, does not cough or wheeze. Does not use inhalers. No further workup recommended for hypoxic respiratory failure as patient is on room air. 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 - Alcohol Withdrawal Protocol ordered including Librium taper and PRN Ativan patient still declining to go to inpatient Alcohol Rehab 12/05 AWSS score 1-2 patient adamantly requesting discharge advised alcohol cessation and to follow with outpatient alcohol cessation program advised absolutely no driving and drinking alcohol patient verbalized understanding and agreement Coronary artery and aortic atherosclerotic calcifications - seen on CT chest - Further work up, management, and ff up as outpatient hypertension - PRN Hydralazine continue usual Atenolol New onset anemia, Vit b12 deficiency no obvious source of bleed, FOBT done at ER was negative - Iron 140 Vit B 12: 178--> start Vit b12 supplement Folate 11.03 -- Further work up, management, and ff up as outpatient Alcoholic hepatitis, likely low Maddrey's DF score with normal coags - monitor LFTs mood disorder, stable as per patient Notes For Next Care Provider Coronary artery and aortic atherosclerotic calcifications - seen on CT chest - Further work up, management, and ff up as outpatient Medication Changes From Visit Vit b12 daily Admission HPI Per Admitting Provider History obtained from patient and records. Medical history significant for hypertension, PVCs, GERD, mood disorder, alcohol abuse. Recent confinement last month for alcohol withdrawal. Patient seen by psychiatry during confinements Patient Lexapro increasing dose, nightly hydroxyzine to regimen. Patient declined inpatient alcohol rehab program. Recent ER visit 2 weeks ago for hypertension and word finding difficulty in the setting of alcohol intake. CT imaging negative for stroke. Patient declined admission recommendation. Patient slurring his words and could not get up from alcohol intake today as per . Patient brought to ER for evaluation. Patient does not know why he was brought to the emergency room. Denies headache, chest pain, SOB, cough, abdominal pain, black/bloody stools, hematuria. Lowest O2 sats of 80s documented at the ER. Medical History as above Surgical History : None Family History : Heart disease Personal/Social history : Non-smoker, alcohol abuse, [employer] employee Admission Exam Per Admitting Provider GENERAL: Comfortable, obese, pleasant, intoxicated, occasional stuttering (chronic as per patient), no respiratory distress SKIN: Normal color, warm HEENT: [place] palpebral conjunctivae, no ptosis, dry buccal mucosa NECK : Supple, no tenderness CHEST : CTA, no tenderness HEART : RRR, no obvious murmurs ABDOMEN: Some distention, nontender RECTAL : Intact sphincter, brown stool (FOBT negative) EXTREMITIES : No LE swelling/tenderness, palpable pulses, no other conspicuous deformities noted NEUROLOGIC : Coherent, no facial asymmetry, occasional stuttering, no other gross focality Discharge Exam General- oriented x 3, not in distress, speaks in sentences with no effort or accessory muscle use Eyes- anicteric Neck- no JVD Lungs- clear breath sounds bilaterally, no rales/wheezes Heart- normal rate, regular rhythm; no murmurs Abdomen- normal bowel sounds, nondistended, soft, nontender Extremities- no pretibial edema, no calf tenderness no tremors Neuro- alert, oriented x 3; no gross focal neurologic deficits Skin- warm & dry Updated Medication List Medication Instructions Recorded Confirmed Type atenolol 25 mg tablet 25 mg PO QAM 12/02/24 12/02/24 History disulfiram 250 mg tablet 250 mg PO QAM 12/02/24 12/02/24 History folic acid 1 mg tablet 1 mg PO QAM 12/02/24 12/02/24 History hydroxyzine HCl 50 mg tablet 50 mg PO HS 12/02/24 12/02/24 History thiamine HCl (vitamin B1) 100 mg 100 mg PO QAM 12/02/24 12/02/24 History tablet cyanocobalamin (vitamin B-12) 100 100 mcg PO QAM 30 days #30 tabs 12/04/24 Rx mcg tablet (Vitamin B-12) Hospital Stay Data Consultations 12/02/24 22:42 ED Decision to Admit Stat 12/03/24 11:41 Consult Pulmonology Routine Diagnostic Imagining Performed Laboratory Results WBC 5.13 K/ul (4.8-10.8) 12/04/24 06:46 RBC 4.90 M/uL (4.70-6.10) 12/04/24 06:46 Hgb 15.8 g/dl (14.0-18.0) 12/04/24 06:46 Hct 45.4 % (42.0-52.0) 12/04/24 06:46 MCV 92.7 fL (80.0-100.0) 12/04/24 06:46 MCH 32.2 pg (25.0-34.0) 12/04/24 06:46 MCHC 34.8 g/dL (32.0-36.0) 12/04/24 06:46 RDW Std Deviation 51.2 fL (36.4-46.3) H 12/04/24 06:46 RDW Coeff of Abel 14.9 % (11.5-14.5) H 12/04/24 06:46 Plt Count 226 K/uL (130-400) 12/04/24 06:46 MPV 9.0 fL (9.4-12.4) L 12/04/24 06:46 Immature Gran % (Auto) 0.4 % 12/04/24 06:46 Neut % (Auto) 55.7 % 12/04/24 06:46 Lymph % (Auto) 25.3 % 12/04/24 06:46 [place] % (Auto) 15.6 % 12/04/24 06:46 Eos % (Auto) 1.6 % 12/04/24 06:46 Baso % (Auto) 1.4 % 12/04/24 06:46 Reticulocyte % (Auto) 3.10 % (0.50-2.00) H 12/03/24 00:36 Neut # (Auto) 2.86 K/uL (1.40-6.50) 12/04/24 06:46 Lymph # (Auto) 1.30 K/uL (1.20-3.40) 12/04/24 06:46 [place] # (Auto) 0.80 K/uL (0.11-0.59) H 12/04/24 06:46 Eos # (Auto) 0.08 K/uL (0.00-0.50) 12/04/24 06:46 Baso # (Auto) 0.07 K/uL (0.00-0.20) 12/04/24 06:46 Reticulocyte # 0.130 10^6/uL (0.020-0.100) H 12/03/24 00:36 Immature Gran # (Auto) 0.02 K/uL (0.01-0.20) 12/04/24 06:46 Neutrophils % (Manual) 34 % 12/02/24 21:39 Lymphocytes % (Manual) 31 % 12/02/24 21:39 Monocytes % (Manual) 4 % 12/02/24 21:39 Eosinophils % (Manual) 4 % 12/02/24 21:39 Basophils % (Manual) 2 % 12/02/24 21:39 Neutrophils # (Manual) 1.89 K/uL (1.40-6.50) 12/02/24 21:39 Total Absolute Neuts 1.89 K/uL (1.4-6.5) 12/02/24 21:39 Lymphocytes # (Manual) 1.72 K/uL (1.2-3.4) 12/02/24 21:39 Total Abs Lymphocytes 3.11 K/uL (1.2-3.4) 12/02/24 21:39 Monocytes # (Manual) 0.22 K/uL (0.11-0.59) 12/02/24 21:39 Eosinophils # (Manual) 0.22 K/uL (0-0.50) 12/02/24 21:39 Basophils # (Manual) 0.11 K/uL (0-0.2) 12/02/24 21:39 Large Granular Lymphs 25 % 12/02/24 21:39 # Lrg Granular Lymphs 1.39 K/uL 12/02/24 21:39 Polychromasia 1+ 12/03/24 03:49 PT 10.9 Seconds (9.0-12.0) 12/02/24 21:39 INR 1.0 (0.9-1.1) 12/02/24 21:39 VBG pH 7.34 (7.36-7.41) L 12/03/24 03:49 VBG pCO2 50 mmHg (38-50) 12/03/24 03:49 VBG pO2 69 mmHg 12/03/24 03:49 VBG HCO3 27 mmol/L 12/03/24 03:49 VBG O2 Saturation 94.1 % 12/03/24 03:49 VBG Base Excess 0.5 mEq/L 12/03/24 03:49 Sodium 137 mmol/L (136-145) 12/04/24 06:46 Potassium 3.7 mmol/L (3.5-5.1) 12/04/24 06:46 Chloride 100 mmol/L (98-107) 12/04/24 06:46 Carbon Dioxide 26 mmol/L (21-32) 12/04/24 06:46 Anion Gap 11 (3-11) 12/04/24 06:46 BUN 12 mg/dl (6-23) 12/04/24 06:46 Creatinine 0.88 mg/dl (0.6-1.4) 12/04/24 06:46 Est Cr Clr Drug Dosing 116.2 ml/min 12/04/24 06:46 eGFR 102.18 12/04/24 06:46 BUN/Creatinine Ratio 13.6 (10-20) 12/04/24 06:46 Glucose 95 mg/dl (70-99(Fasting)) 12/04/24 06:46 Calcium 9.2 mg/dl (8.6-10.3) 12/04/24 06:46 Magnesium 2.0 mg/dl (1.7-2.4) 12/02/24 21:39 Iron 140 mcg/dl (35-175) 12/03/24 00:36 Transferrin 244 mg/dl (200-360) 12/03/24 00:36 Ferritin 215.0 ng/ml (8-388) 12/03/24 00:36 Total Bilirubin 1.3 mg/dl (0.2-1.0) H D 12/04/24 06:46 Direct Bilirubin 0.2 mg/dl (0-0.2) 12/04/24 06:46 AST 51 U/L (13-39) H 12/04/24 06:46 ALT 72 U/L (7-52) H 12/04/24 06:46 Alkaline Phosphatase 84 U/L (34-104) 12/04/24 06:46 B-Natriuretic Peptide 114 pg/ml (0-100) H 12/03/24 07:59 Total Protein 7.4 gm/dl (6.0-8.3) 12/04/24 06:46 Albumin 3.9 gm/dl (3.4-5.0) 12/04/24 06:46 Globulin 2.9 gm/dl (2.5-4.0) 12/03/24 03:49 Albumin/Globulin Ratio 1.3 (0.9-2) 12/03/24 03:49 Lipase 13 U/L (11-82) 12/02/24 21:39 Vitamin B12 178 pg/ml (180-914) L 12/03/24 00:36 Folate 11.03 ng/ml (>5.38) 12/03/24 00:36 Urine Color Yellow 12/03/24 08:18 Urine Appearance Clear (Clear) 12/03/24 08:18 Urine pH 5.5 (4.5-7.5) 12/03/24 08:18 Ur Specific [place] 1.030 (1.000-1.030) 12/03/24 08:18 Urine Protein Negative (Negative) 12/03/24 08:18 Urine Glucose (UA) Negative (Negative) 12/03/24 08:18 Urine Ketones Negative (Negative) 12/03/24 08:18 Urine Blood Negative (Negative) 12/03/24 08:18 Urine Nitrite Negative (Negative) 12/03/24 08:18 Urine Bilirubin Negative (Negative) 12/03/24 08:18 Urine Urobilinogen Negative (Negative) 12/03/24 08:18 Ur Leukocyte Esterase Negative (Negative) 12/03/24 08:18 Urine Comment 12/03/24 08:18 Ethyl Alcohol mg/dL 455.1 mg/dl (<10.0) H 12/02/24 21:39 Impressions Chest X-Ray 12/02/24 21:51 Exam(s): XR CXR 1 VIEW EXAM: XR Chest, 1 View CLINICAL HISTORY: Reason for exam: hypoxia. TECHNIQUE: Frontal view of the chest. COMPARISON: Chest x-ray 10/25/2024 FINDINGS: Lungs: Bibasilar atelectasis. No consolidation or interstitial edema. Pleural space: No pleural effusion. No pneumothorax. Heart: Unremarkable. No cardiomegaly. Bones/joints: Chronic fracture deformities in the ribs on the left. IMPRESSION: Bibasilar atelectasis. No consolidation or interstitial edema. Electronically signed by: Terry Alford MD 12/02/24 22:36 PM Chest CTA 12/03/24 03:45 EXAM: CT angio chest PE protocol CLINICAL HISTORY: low o2 TECHNIQUE: Contiguous axial images were obtained from the base of the neck through the upper abdomen following intravenous administration of iodinated contrast material. Angiographic images were processed, and 3D MIP images were acquired for interpretation. If IV contrast material had not been administered, the likelihood of detecting abnormalities relevant to the patient's condition would have been substantially decreased. Coronal and sagittal 3D MIPs were likewise performed and indicated to increase the sensitivity of detecting diffuse, clinically relevant pathology. The CT scan was performed according to ALARA (as low as reasonably achievable). COMPARISON: None. FINDINGS: Left diaphragmatic eventration causes passive subsegmental atelectasis of the left basal segments. Diffuse, smooth interlobular septal thickening is noted involving both lungs, suggestive of pulmonary congestion. Mild dilatation of the pulmonary trunk and bilateral main pulmonary arteries up to the subsegmental level with mild tortuosity suggests the possibility of pulmonary arterial hypertension. Few atelectatic bands are noted involving the bilateral lung bases. There is an adequate contrast bolus without evidence of pulmonary embolism. The central airways are patent. The remainder of the lungs is clear. No pleural effusion. The heart, aorta, and pulmonary arteries are of normal size and configuration. There are coronary artery and aortic atherosclerotic calcifications. No pericardial effusion is identified. The thyroid is unremarkable. No mediastinal, hilar, or axillary lymphadenopathy is noted. No suspicious lytic or sclerotic osseous lesions are identified. IMPRESSION: Left diaphragmatic eventration causes passive subsegmental atelectasis of the left basal segments. Diffuse, smooth interlobular septal thickening is noted involving both lungs, suggestive of pulmonary congestion. Mild dilatation of the pulmonary trunk and bilateral main pulmonary arteries up to the subsegmental level with mild tortuosity suggests the possibility of pulmonary arterial hypertension. Few atelectatic bands are noted involving the bilateral lung bases. No obvious pulmonary embolism. Electronically signed by Roddy Stinson 12-03-2024 05:10 AM Pending Results Patient Have Any Pending Studies at Discharge: No Discharge Instructions Given to Patient (Per Discharging Provider) PLEASE REFER TO YOUR NEW MEDICATION LIST AND FOLLOW INSTRUCTIONS CAREFULLY. YOUR NEW MEDICATIONS INCLUDE: Vitamin B12 supplement- for mild vitamin B12 deficiency Continue thiamine and folate supplement Continue to follow-up closely with her alcohol cessation program. Absolutely no driving when drinking alcohol. PLEASE CALL YOUR PRIMARY CARE PHYSICIAN OR RETURN TO THE ER IF WITH WORSENING OF SYMPTOMS, INCLUDING Shortness of breath, cough, fevers or chills, tremors, sweating, confusion,etc. FOLLOW UP WITH PRIMARY CARE PHYSICIAN in 1 week. Total Time Total Time Spent Total Time Spent (In Minutes): 45 minutes
== END 2024-12-04 09:23 | disposition home or self-care (01) | DRG 189 ==
LOC: ED 21:27 → EDINP 22:55 → 2N 12-03 00:18